=== PATIENT | male | born 1950 ===

== ENCOUNTER 2017-02-09 20:32 | Inpatient (IN) | payer OTHER ==
[2017-02-09] MEDS ORDERED: Albuterol-Ipratrop 3 mg / 0.5 (3 ml) UD INH STA (21:23)
[2017-02-09 21:46] LABS: ABG ALLEN TEST YES; ARTERIAL BLOOD GAS HCO3 29.5 mmol/L (21-28); ARTERIAL BLOOD GAS PH 7.36 (7.35-7.45); ARTERIAL BLOOD GAS PO2 68 mm/Hg (80-100)
[2017-02-09] MEDS ORDERED: Albuterol-Ipratrop 3 mg / 0.5 (3 ml) UD ONE (21:49)
[2017-02-09] MEDS ORDERED: cefTRIAXone IV 1 gm in Dextros 50 ML IVPB STA (22:15)
--- NOTE | 2017-02-09 22:15 | ED PDOC ---
HPI: SOB/CHF/COPD Time Seen by Provider: 02/09/17 21:01 Chief Complaint (Nursing): Shortness Of Breath Chief Complaint (Provider): Cough and Shortness Of Breath History Per: Patient History/Exam Limitations: no limitations Onset/Duration Of Symptoms: Days (x 2 ) Current Symptoms Are (Timing): Still Present Additional Complaint(s): 76 year old man with a past medical history of asthma presents to the ED with cough and associated shortness of breath, onset 2 days ago. Patients reports cough with green sputum, clear rhinorrhea and a subjective fever. He reports that he does not take any medications for asthma and does not follow up with doctor. Patient is homeless and lives outdoors. Admits to smoking cigarettes heavily. Denies hemoptysis. PMD: none Past Medical History Reviewed: Historical Data, Nursing Documentation, Vital Signs Vital Signs: Last Vital Signs Temp 98.4 F 02/09/17 23:29 Pulse 85 02/09/17 23:29 Resp 21 02/09/17 23:29 BP 148/79 02/09/17 23:29 Pulse Ox 95 02/09/17 23:29 - Medical History PMH: Asthma, COPD - Surgical History Surgical History: No Surg Hx - Family History Family History: States: Unknown Family Hx - Social History Current smoker - smoking cessation education provided: Yes (heavy) Alcohol: None Drugs: Denies - Immunization History Hx Tetanus Toxoid Vaccination: No Hx Influenza Vaccination: No Hx Pneumococcal Vaccination: No - Home Medications Home Medications: Ambulatory Orders Medication Instructions Recorded No Known Home Med 02/09/17 - Allergies Allergies/Adverse Reactions: Allergies Allergy/AdvReac Type Severity Reaction Status Date / Time No Known Allergies Allergy Unverified 02/09/17 20:40 Curb-65 Severity Score - CURB-65 Severity Score Confusion: No Bun >19mg/dl (>7mmol/L): No Respiratory Rate greater than/equal to 30: No Systolic BP <90 or Diastolic BP less than/equal 60mmHg: No Age >64: Yes Curb-65 Score: 1 Percentage 30-day mortality: 2.7% Review of Systems ROS Statement: Except As Marked, All Systems Reviewed And Found Negative (as per HPI) Constitutional: Positive for: Fever (subjective) ENT: Positive for: Nose Discharge (clear) Respiratory: Positive for: Cough, Shortness of Breath, Sputum (green) Physical Exam - Reviewed Nursing Documentation Reviewed: Yes Vital Signs Reviewed: Yes - Physical Exam Appears: Positive for: Non-toxic, In Acute Distress (mild respiratory) Head Exam: Positive for: ATRAUMATIC, NORMOCEPHALIC Skin: Positive for: Warm, Dry, Pallor Eye Exam: Positive for: EOMI, PERRL ENT: Negative for: Pharyngeal Erythema, Tonsillar Exudate Neck: Positive for: Painless ROM, Supple Cardiovascular/Chest: Positive for: Regular Rate, Rhythm, Chest Non Tender. Negative for: Murmur Respiratory: Positive for: Rhonchi, Wheezing, Respiratory Distress (mild). Negative for: Accessory Muscle Use Gastrointestinal/Abdominal: Positive for: Soft. Negative for: Tenderness Back: Positive for: Normal Inspection. Negative for: Muscle Spasm Extremity: Positive for: Normal ROM. Negative for: Deformity Lymphatic: Negative for: Adenopathy Neurologic/Psych: Positive for: Alert. Negative for: Motor/Sensory Deficits - Laboratory Results Result Diagrams: 02/09/17 22:18 02/09/17 22:18 - ECG O2 Sat by Pulse Oximetry: 89 (RA) Pulse Ox Interpretation: Normal Medical Decision Making Medical Decision Making: Time: 21:22 Impression: Differential diagnoses: pneumonia, bronchitis, ACS, CHF Initial Plan: --ABG shock panel --EKG --BNP --CMP --Troponin I --CBC with differentials --Chest Portable x-ray --Duoneb 9 ml INH --Rocephin 50 ml IVPB --mehtlyprednisolone 125 mg IVP --Zithromax 500 mg IV --Blood culture --Influenza A B Time: 22:22 --X-ray demonstarted right upper lobe pneumonia and Iv antibiotics were ordered to treat community acquired pneumonia. --Patient will be hospitalized for pneumonia w comorbidities and hypoxia and hypercarbia. Scribe Attestation: Documented by Veda Weller, acting as a scribe for Gaye Bridges MD Provider Scribe Attestation: All medical record entries made by the Scribe were at my direction and personally dictated by me. I have reviewed the chart and agree that the record accurately reflects my personal performance of the history, physical exam, medical decision making, and the department course for this patient. I have also personally directed, reviewed, and agree with the discharge instructions and disposition Disposition - Clinical Impression Clinical Impression: COPD exacerbation, Pneumonia Discussed With : Jackie Hernandez Doctor Will See Patient In The: ED Counseled Patient/Family Regarding: Studies Performed, Diagnosis - Disposition Disposition Time: 22:00 Condition: FAIR Forms: [employer] (Kyrgyz) - Pt Status Changed To: Hospital Disposition Of: Inpatient - Admit Certification Admit to Inpatient:: After my assessment, the patient will require hospitalization for at least two midnights. This is because of the severity of symptoms shown, intensity of services needed, and/or the medical risk in this patient being treated as an outpatient. - POA Present On Arrival: None
[2017-02-09 22:26] LABS: BASO # 0.1 K/uL (0.0-0.2); BASO % 0.9 % (0.0-2.0); EOS # 0.6 K/uL (0.0-0.7); EOS % 4.6 % (0.0-4.0); HEMATOCRIT 43.7 % (35.0-51.0); LYMPH # 1.3 K/uL (1.0-4.3); LYMPH % 9.6 % (20.0-40.0); MEAN CELL VOLUME 93.7 fl (80.0-94.0); MEAN CORPUSCULAR HEMOGLOBIN 30.5 pg (27.0-31.0); MEAN CORPUSCULAR HGB CONC 32.6 g/dL (33.0-37.0); MEAN PLATELET VOLUME 8.4 fl (7.2-11.7); MONO # 1.4 K/uL (0.0-0.8); MONO % 10.3 % (0.0-10.0); NEUT # 10.4 K/uL (1.8-7.0); NEUT % 74.6 % (50.0-75.0); PLATELET COUNT 317 K/uL (130-400); RED CELL DISTRIBUTION WIDTH 14.2 % (11.5-14.5); WHITE BLOOD COUNT 13.9 K/uL (4.8-10.8)
[2017-02-09 22:30] LABS: ALB/GLOB RATIO 1.2 (1.0-2.1); ALKALINE PHOSPHATASE 87 U/L (38-126); ALT/SGPT 27 U/L (21-72); AST/SGOT 15 U/L (17-59); BILIRUBIN,TOTAL 0.3 mg/dl (0.2-1.3); BLOOD UREA NITROGEN 14 mg/dl (9-20); CALCIUM 8.8 mg/dL (8.4-10.2); CARBON DIOXIDE 30 mmol/L (22-30); CHLORIDE 103 mmol/L (98-107); GFR AFRICAN-AMERICAN > 60; GLUCOSE,RANDOM 99 mg/dL (75-110); POTASSIUM 4.3 MMOL/L (3.6-5.0); SODIUM 143 mmol/l (132-148); TOTAL PROTEIN 7.6 G/DL (6.3-8.2)
[2017-02-09] MEDS ORDERED: cefTRIAXone IV 1 gm in Dextros 50 ML IVPB ONE (22:43)
[2017-02-09] MEDS ORDERED: Albuterol-Ipratrop 3 mg / 0.5 (3 ml) UD INH PRN (22:52)
[2017-02-09] MEDS ORDERED: Sodium Chloride 0.9% 1,000 ML IV SCH (23:00)
[2017-02-09 23:01] LABS: EOSINOPHIL 4 % (0-7); NEUTROPHIL 78 % (42-75); TOTAL CELLS COUNTED 100
--- NOTE | 2017-02-09 23:14 | CP.PCM.HP ---
History of Present Illness - History of Present Illness History of Present Illness: CC: cough, SOB HPI: This is a 76 y/o undomiciled male with MHx of asthma and COPD (current 1 PPD+ smoker) who comes in with 2 days of productive cough and SOB. Sputum is green, but no blood. Patient states possible tactile fevers. No n/v/d. Patient does not take any medications for asthma/COPD. He lives outside. ROS: 14 pt. ROS negative other than HPI MHx: Asthma, COPD SHx: None Allergies: NKDA Medications: None Family Hx: Patient cannot provide Social Hx: Patient is homeless, lives outdoors; smokes 1 PPD+, denies tobacco Surrogate: None that patient identifies now Present on Admission - Present on Admission Any Indicators Present on Admission: No Past Patient History - Past Social History Alcohol: None Drugs: Denies - PULMONARY Hx Asthma: Yes Hx Chronic Obstructive Pulmonary Disease (COPD): Yes - PSYCHIATRIC Hx Substance Use: No Meds Allergies/Adverse Reactions: Allergies Allergy/AdvReac Type Severity Reaction Status Date / Time No Known Allergies Allergy Unverified 02/09/17 20:40 Physical Exam - Constitutional Appears: No Acute Distress - Head Exam Head Exam: ATRAUMATIC, NORMOCEPHALIC - Eye Exam Eye Exam: EOMI, PERRL - ENT Exam ENT Exam: Mucous Membranes Dry - Neck Exam Neck exam: Positive for: Full Rom - Respiratory Exam Respiratory Exam: Rhonchi, Wheezes - Cardiovascular Exam Cardiovascular Exam: REGULAR RHYTHM, +S1, +S2 - GI/Abdominal Exam GI & Abdominal Exam: Normal Bowel Sounds, Soft - Extremities Exam Extremities exam: Positive for: full ROM, normal inspection - Neurological Exam Neurological exam: Alert, CN II-XII Intact, Oriented x3 - Psychiatric Exam Psychiatric exam: Normal Affect, Normal Mood - Skin Skin Exam: Dry, Warm Results - Vital Signs Recent Vital Signs: Last Vital Signs Temp 97.7 F 02/09/17 20:38 Pulse 61 02/09/17 20:38 Resp 25 H 02/09/17 22:08 BP 147/91 H 02/09/17 20:38 Pulse Ox 89 L 02/09/17 22:52 - Labs Result Diagrams: 02/09/17 22:18 02/09/17 22:18 Labs: Laboratory Results - last 24 hr 02/09/17 02/09/17 02/09/17 21:00 22:18 22:18 WBC 13.9 H RBC 4.66 Hgb 14.2 Hct 43.7 MCV 93.7 MCH 30.5 MCHC 32.6 L RDW 14.2 Plt Count 317 MPV 8.4 Neut % (Auto) 74.6 Lymph % (Auto) 9.6 L Bell % (Auto) 10.3 H Eos % (Auto) 4.6 H Baso % (Auto) 0.9 Neut # 10.4 H Lymph # 1.3 Bell # 1.4 H Eos # 0.6 Baso # 0.1 Neutrophils % (Manual) 78 H Lymphocytes % (Manual) 10 L Monocytes % (Manual) 8 Eosinophils % (Manual) 4 Platelet Estimate Normal RBC Morphology Normal pCO2 59 H pO2 68 L HCO3 29.5 H ABG pH 7.36 ABG Total CO2 35.1 H ABG O2 Saturation 98.2 H ABG Base Excess 6.0 H Carlos Alberto Test Yes ABG Potassium 3.8 A-a O2 Difference 58.0 Sodium 136.0 143 Chloride 102.0 103 Glucose 101 Lactate 0.5 L FiO2 28.0 Blood Gas Comments 2l/m nc,lr Crit Value Read Back N Potassium 4.3 Carbon Dioxide 30 Anion Gap 14 BUN 14 Creatinine 0.6 L Est GFR ( Amer) > 60 Est GFR (Non-Af Amer) > 60 Random Glucose 99 Calcium 8.8 Total Bilirubin 0.3 AST 15 L ALT 27 Alkaline Phosphatase 87 Troponin I < 0.0120 NT-Pro-B Natriuret Pep 352 Total Protein 7.6 Albumin 4.1 Globulin 3.5 Albumin/Globulin Ratio 1.2 Arterial Blood Potassium 3.8 Influenza Typ A,B (EIA) 02/09/17 22:18 WBC RBC Hgb Hct MCV MCH MCHC RDW Plt Count MPV Neut % (Auto) Lymph % (Auto) Bell % (Auto) Eos % (Auto) Baso % (Auto) Neut # Lymph # Bell # Eos # Baso # Neutrophils % (Manual) Lymphocytes % (Manual) Monocytes % (Manual) Eosinophils % (Manual) Platelet Estimate RBC Morphology pCO2 pO2 HCO3 ABG pH ABG Total CO2 ABG O2 Saturation ABG Base Excess Carlos Alberto Test ABG Potassium A-a O2 Difference Sodium Chloride Glucose Lactate FiO2 Blood Gas Comments Crit Value Read Back Potassium Carbon Dioxide Anion Gap BUN Creatinine Est GFR ( Amer) Est GFR (Non-Af Amer) Random Glucose Calcium Total Bilirubin AST ALT Alkaline Phosphatase Troponin I NT-Pro-B Natriuret Pep Total Protein Albumin Globulin Albumin/Globulin Ratio Arterial Blood Potassium Influenza Typ A,B (EIA) Negative for flu a/b - Imaging and Cardiology Chest x-ray Status: Image reviewed by me (possible R sided infiltrate) Assessment & Plan (1) CAP (community acquired pneumonia) Assessment and Plan: A/P: 76 y/o male, homeless, with asthma/COPD presenting with CAP. -Continue azithromycin/ceftriaxone IV -Cont nebulizers -Will switch to PO steroids for now since wheezing/SOB improved; protonix for GI PPx -f/u cultures -nicotine patch -SQ Lovenox for DVT PPx Status: Acute (2) DVT prophylaxis Status: Acute (3) COPD exacerbation Status: Acute
[2017-02-10 07:15] LABS: HEMATOCRIT 42.8 % (35.0-51.0); MEAN CELL VOLUME 92.7 fl (80.0-94.0); MEAN CORPUSCULAR HEMOGLOBIN 30.6 pg (27.0-31.0); RED CELL DISTRIBUTION WIDTH 14.2 % (11.5-14.5); WHITE BLOOD COUNT 11.9 K/uL (4.8-10.8)
[2017-02-10 07:58] LABS: BLOOD UREA NITROGEN 11 mg/dl (9-20); CALCIUM 8.6 mg/dL (8.4-10.2); CARBON DIOXIDE 30 mmol/L (22-30); CHLORIDE 100 mmol/L (98-107); GFR AFRICAN-AMERICAN > 60; GLUCOSE,RANDOM 158 mg/dL (75-110); SODIUM 141 mmol/l (132-148)
--- NOTE | 2017-02-10 08:09 | RAD ---
HISTORY: sob COMPARISON: Portable chest 12/22/2011. FINDINGS: LUNGS: Limited patchy E infiltrate difficult to exclude the right perihilar region, minimal in volume. Further, reticular markings are increased diffusely likely reflecting interval worsening of COPD. Overall pattern COPD was best identified in prior chest CT 04/10/2013. PLEURA: No significant pleural effusion identified, no pneumothorax apparent. CARDIOVASCULAR: Normal. OSSEOUS STRUCTURES: No significant abnormalities. VISUALIZED UPPER ABDOMEN: Normal. OTHER FINDINGS: None. IMPRESSION: Trace right perihilar infiltrate is difficult to exclude. Overall worsening of COPD is suspected. Further clinical correlation advised.
[2017-02-10] MEDS: Albuterol-Ipratrop 3 mg / 0.5 (3 ml) UD INH SCH ×3 (08:10→19:35)
[2017-02-10] MEDS: cefTRIAXone IV 1 gm in Dextros 50 ML IVPB SCH (08:18)
[2017-02-10] MEDS ORDERED: Pneumococcal 23-Valent Vaccine IM ONE (09:00)
[2017-02-10] MEDS ORDERED: Pantoprazole 40 mg EC Tab PO SCH (09:00)
[2017-02-10] MEDS ORDERED: Influenza Vaccine 18yr & older 0.5 ML/45 MCG SYR IM ONE (09:00)
[2017-02-10] MEDS: Pantoprazole 40 mg EC Tab PO SCH (10:00)
[2017-02-10] MEDS: Enoxaparin 40 mg Syringe SC SCH (10:00)
--- NOTE | 2017-02-10 10:50 | CARD ---
APPROVED REPORT EKG Measurement Heart [id number] <Conclusion> Normal sinus rhythm with sinus arrhythmia Normal ECG
--- NOTE | 2017-02-10 11:41 | CP.PCM.PN ---
Subjective - Date & Time of Evaluation Date of Evaluation: 02/10/17 Time of Evaluation: 11:30 - Subjective Subjective: No fever still with cough and wheezing sl SOB no CP no abd pain Objective - Vital Signs/Intake and Output Vital Signs (last 24 hours): Temp Pulse Resp BP Pulse Ox 98.1 F 63 18 133/67 93 L 02/10/17 08:29 02/10/17 08:31 02/10/17 08:29 02/10/17 08:29 02/10/17 08:29 - Medications Medications: Current Medications Acetaminophen (Tylenol 325mg Tab) 650 mg PO Q6 PRN PRN Reason: Fever >100.4 F Albuterol/Ipratropium (Duoneb 3 Mg/0.5 Mg (3 Ml) Ud) 3 ml INH RQ6 [facility] Last Admin: 02/10/17 08:10 Dose: 3 ml Enoxaparin Sodium (Lovenox) 40 mg SC DAILY [facility] PRN Reason: Protocol Last Admin: 02/10/17 10:00 Dose: 40 mg Ceftriaxone Sodium (Rocephin Iv 1 Gm Duplex) 50 mls @ 50 mls/hr IVPB DAILY [facility] PRN Reason: Protocol Last Admin: 02/10/17 08:18 Dose: 50 mls/hr Azithromycin 500 mg/ Dextrose 250 mls @ 250 mls/hr IVPB DAILY [facility] PRN Reason: Protocol Last Admin: 02/10/17 08:17 Dose: 250 mls/hr Nicotine (Nicoderm Cq) 1 patch TD DAILY [facility] Last Admin: 02/10/17 10:02 Dose: 1 patch Pantoprazole Sodium (Protonix Ec Tab) 40 mg PO DAILY [facility] Last Admin: 02/10/17 10:00 Dose: 40 mg Prednisone (Prednisone Tab) 60 mg PO DAILY [facility] Last Admin: 02/10/17 09:59 Dose: 60 mg - Labs Labs: 02/10/17 06:40 02/10/17 05:45 - Constitutional Appears: No Acute Distress - Head Exam Head Exam: NORMAL INSPECTION, NORMOCEPHALIC - Eye Exam Eye Exam: EOMI, Normal appearance Pupil Exam: NORMAL ACCOMODATION - ENT Exam ENT Exam: Mucous Membranes Moist, Normal External Ear Exam - Neck Exam Neck Exam: Full ROM. absent: Meningismus - Respiratory Exam Respiratory Exam: Rales, Rhonchi, Wheezes. absent: Respiratory Distress - Cardiovascular Exam Cardiovascular Exam: REGULAR RHYTHM, +S1, +S2 - GI/Abdominal Exam GI & Abdominal Exam: Soft, Normal Bowel Sounds. absent: Tenderness - Extremities Exam Extremities Exam: Full ROM, Normal Capillary Refill. absent: Calf Tenderness, Pedal Edema Additional comments: varicosities LE - Back Exam Back Exam: Full ROM. absent: CVA tenderness (L), CVA tenderness (R) - Neurological Exam Neurological Exam: Alert, Awake, CN II-XII Intact, Oriented x3 Neuro motor strength exam: Left Upper Extremity: 5, Right Upper Extremity: 5, Left Lower Extremity: 5, Right Lower Extremity: 5 - Psychiatric Exam Psychiatric exam: Normal Affect, Normal Mood - Skin Skin Exam: Dry, Normal Color, Warm Assessment and Plan - Assessment and Plan (Free Text) Assessment: 76 y/o homeless gent, with hx of COPD came in bec of cough , fever and SOB x 2 days . (1) CAP (community acquired pneumonia) - CXR : trace perihilar infiltrate -Continue azithromycin/ceftriaxone IV -Sputum , Blood c/s - Legionella, Mycoplasma (2) DVT prophylaxis Status: Acute Lovenox (3) COPD exacerbation -received Solumedrol IV in ED, cont PO steroids for now since wheezing/SOB improved - cont Duoneb - protonix for GI PPx -nicotine patch
[2017-02-10] MEDS ORDERED: Sodium Chloride 3% for Inhalation 4 ML VIAL.NEB IH PRN (13:54)
[2017-02-11] MEDS: Albuterol-Ipratrop 3 mg / 0.5 (3 ml) UD INH SCH ×4 (01:00→19:25)
[2017-02-11] MEDS: cefTRIAXone IV 1 gm in Dextros 50 ML IVPB SCH (10:08)
[2017-02-11] MEDS: Pantoprazole 40 mg EC Tab PO SCH (10:42)
[2017-02-11] MEDS: Enoxaparin 40 mg Syringe SC SCH (10:44)
--- NOTE | 2017-02-11 16:05 | CP.PCM.PN ---
Subjective - Date & Time of Evaluation Date of Evaluation: 02/11/17 Time of Evaluation: 13:00 - Subjective Subjective: No fever SOB better wheezing better still with cough , greenish phlegm no CP no abd pain Objective - Vital Signs/Intake and Output Vital Signs (last 24 hours): Temp Pulse Resp BP Pulse Ox 97.4 F L 57 L 20 156/86 H 97 02/11/17 08:39 02/11/17 08:39 02/11/17 08:39 02/11/17 08:39 02/11/17 08:39 Intake and Output: 02/11/17 02/11/17 06:59 18:59 Intake Total 420 Output Total 300 Balance 120 - Medications Medications: Current Medications Acetaminophen (Tylenol 325mg Tab) 650 mg PO Q6 PRN PRN Reason: Fever >100.4 F Acetaminophen (Tylenol 325mg Tab) 650 mg PO Q6 PRN PRN Reason: Headache Last Admin: 02/11/17 00:54 Dose: 650 mg Albuterol/Ipratropium (Duoneb 3 Mg/0.5 Mg (3 Ml) Ud) 3 ml INH RQ6 [facility] Last Admin: 02/11/17 07:49 Dose: 3 ml Enoxaparin Sodium (Lovenox) 40 mg SC DAILY [facility] PRN Reason: Protocol Last Admin: 02/11/17 10:44 Dose: 40 mg Ceftriaxone Sodium (Rocephin Iv 1 Gm Duplex) 50 mls @ 50 mls/hr IVPB DAILY [facility] PRN Reason: Protocol Last Admin: 02/11/17 10:08 Dose: 50 mls/hr Azithromycin 500 mg/ Dextrose 250 mls @ 250 mls/hr IVPB DAILY [facility] PRN Reason: Protocol Last Admin: 02/11/17 10:09 Dose: 250 mls/hr Nicotine (Nicoderm Cq) 1 patch TD DAILY [facility] Last Admin: 02/11/17 10:45 Dose: 1 patch Pantoprazole Sodium (Protonix Ec Tab) 40 mg PO DAILY [facility] Last Admin: 02/11/17 10:42 Dose: 40 mg Prednisone (Prednisone Tab) 60 mg PO DAILY [facility] Last Admin: 02/11/17 10:42 Dose: 60 mg - Labs Labs: 02/10/17 06:40 02/10/17 05:45 Assessment and Plan - Assessment and Plan (Free Text) Assessment: 76 y/o homeless gent, with hx of COPD came in bec of cough , fever and SOB x 2 days . CXR : right perhilar infiltrate (1) CAP (community acquired pneumonia) - CXR : trace perihilar infiltrate -Continue azithromycin/ceftriaxone IV -Sputum , Blood c/s - Legionella : negative , Infuenz : neg (2) DVT prophylaxis Status: Acute Lovenox (3) COPD exacerbation -received Solumedrol IV in ED, cont PO steroids for now since wheezing/SOB improved - cont Duoneb - protonix for GI PPx -nicotine patch
[2017-02-11] MEDS ORDERED: Albuterol HFA 90 mcg/actuation (8 g) INH PRN (19:33)
[2017-02-11] MEDS: Fluticasone-Salmeterol 250-50mcg Diskus IH SCH (21:08)
[2017-02-12] MEDS: Albuterol-Ipratrop 3 mg / 0.5 (3 ml) UD INH SCH ×3 (01:14→13:11)
[2017-02-12 08:37] VITALS: BP 159/85; PULSE 58; RESP 20; TEMP 98.1; O2SAT 98
[2017-02-12] MEDS: Pantoprazole 40 mg EC Tab PO SCH (09:02)
[2017-02-12] MEDS: Enoxaparin 40 mg Syringe SC SCH (09:03)
[2017-02-12] MEDS: Fluticasone-Salmeterol 250-50mcg Diskus IH SCH (09:04)
[2017-02-12] MEDS: cefTRIAXone IV 1 gm in Dextros 50 ML IVPB SCH (09:04)
--- NOTE | 2017-02-12 13:18 | CP.PCM.DIS ---
Provider - Provider Date of Admission: 02/09/17 22:50 Attending physician: Jackie Hernandez MD Primary care physician: None Consults: None on this admission Time Spent in preparation of Discharge (in minutes): 25 Hospital Course - Lab Results Lab Results: Micro Results 02/09/17 22:06 Blood Blood Culture - Preliminary NO GROWTH AFTER 48 HOURS 02/11/17 14:00 Sputum Induced Gram Stain - Final Most Recent Lab Values WBC 11.9 K/uL (4.8-10.8) H 02/10/17 06:40 RBC 4.61 Mil/uL (4.40-5.90) 02/10/17 06:40 Hgb 14.1 g/dL (12.0-18.0) 02/10/17 06:40 Hct 42.8 % (35.0-51.0) 02/10/17 06:40 MCV 92.7 fl (80.0-94.0) 02/10/17 06:40 MCH 30.6 pg (27.0-31.0) 02/10/17 06:40 MCHC 33.0 g/dL (33.0-37.0) 02/10/17 06:40 RDW 14.2 % (11.5-14.5) 02/10/17 06:40 Plt Count 312 K/uL (130-400) 02/10/17 06:40 MPV 8.4 fl (7.2-11.7) 02/09/17 22:18 Neut % (Auto) 74.6 % (50.0-75.0) 02/09/17 22:18 Lymph % (Auto) 9.6 % (20.0-40.0) L 02/09/17 22:18 Elmore % (Auto) 10.3 % (0.0-10.0) H 02/09/17 22:18 Eos % (Auto) 4.6 % (0.0-4.0) H 02/09/17 22:18 Baso % (Auto) 0.9 % (0.0-2.0) 02/09/17 22:18 Neut # 10.4 K/uL (1.8-7.0) H 02/09/17 22:18 Lymph # 1.3 K/uL (1.0-4.3) 02/09/17 22:18 Elmore # 1.4 K/uL (0.0-0.8) H 02/09/17 22:18 Eos # 0.6 K/uL (0.0-0.7) 02/09/17 22:18 Baso # 0.1 K/uL (0.0-0.2) 02/09/17 22:18 Neutrophils % (Manual) 78 % (42-75) H 02/09/17 22:18 Lymphocytes % (Manual) 10 % (20-50) L 02/09/17 22:18 Monocytes % (Manual) 8 % (0-10) 02/09/17 22:18 Eosinophils % (Manual) 4 % (0-7) 02/09/17 22:18 Platelet Estimate Normal (NORMAL) 02/09/17 22:18 RBC Morphology Normal (NORMAL) 02/09/17 22:18 pCO2 59 mm/Hg (35-45) H 02/09/17 21:00 pO2 68 mm/Hg (80-100) L 02/09/17 21:00 HCO3 29.5 mmol/L (21-28) H 02/09/17 21:00 ABG pH 7.36 (7.35-7.45) 02/09/17 21:00 ABG Total CO2 35.1 mmol/L (22-28) H 02/09/17 21:00 ABG O2 Saturation 98.2 % (95-98) H 02/09/17 21:00 ABG Base Excess 6.0 mmol/L (-2.0-3.0) H 02/09/17 21:00 Carlos Alberto Test Yes 02/09/17 21:00 ABG Potassium 3.8 mmol/L (3.6-5.2) 02/09/17 21:00 A-a O2 Difference 58.0 mm/Hg 02/09/17 21:00 Sodium 136.0 mmol/L (132-148) 02/09/17 21:00 Chloride 102.0 mmol/L (98-107) 02/09/17 21:00 Glucose 101 mg/dL (75-110) 02/09/17 21:00 Lactate 0.5 mmol/L (0.7-2.1) L 02/09/17 21:00 FiO2 28.0 % 02/09/17 21:00 Blood Gas Comments 2l/m nc,lr 02/09/17 21:00 Crit Value Read Back N 02/09/17 21:00 Sodium 141 mmol/l (132-148) 02/10/17 05:45 Potassium 4.0 MMOL/L (3.6-5.0) 02/10/17 05:45 Chloride 100 mmol/L (98-107) 02/10/17 05:45 Carbon Dioxide 30 mmol/L (22-30) 02/10/17 05:45 Anion Gap 15 (10-20) 02/10/17 05:45 BUN 11 mg/dl (9-20) 02/10/17 05:45 Creatinine 0.5 mg/dl (0.8-1.5) L 02/10/17 05:45 Est GFR ( Amer) > 60 02/10/17 05:45 Est GFR (Non-Af Amer) > 60 02/10/17 05:45 Random Glucose 158 mg/dL (75-110) H 02/10/17 05:45 Calcium 8.6 mg/dL (8.4-10.2) 02/10/17 05:45 Total Bilirubin 0.3 mg/dl (0.2-1.3) 02/09/17 22:18 AST 15 U/L (17-59) L 02/09/17 22:18 ALT 27 U/L (21-72) 02/09/17 22:18 Alkaline Phosphatase 87 U/L (38-126) 02/09/17 22:18 Troponin I < 0.0120 ng/mL (0.00-0.120) 02/09/17 22:18 NT-Pro-B Natriuret Pep 352 pg/ml (0-900) 02/09/17 22:18 Total Protein 7.6 G/DL (6.3-8.2) 02/09/17 22:18 Albumin 4.1 g/dL (3.5-5.0) 02/09/17 22:18 Globulin 3.5 gm/dL (2.2-3.9) 02/09/17 22:18 Albumin/Globulin Ratio 1.2 (1.0-2.1) 02/09/17 22:18 Arterial Blood Potassium 3.8 mmol/L (3.6-5.2) 02/09/17 21:00 Influenza Typ A,B (EIA) Negative for flu a/b (NEGATIVE) 02/09/17 22:18 Ur L.pneumophila Ag Negative (NEGATIVE) 02/10/17 19:49 - Hospital Course Hospital Course: This is a 66 year old homeless male with a past medical history significant for asthma and COPD, 1 PPD smoker, who presented to the ED with 2 days of productive cough and shortness of breath. He was found to have right sided pneumonia. He also was found to have significant wheezing. The patient was admitted and started on azithromycin and ceftriaxone for coverage of community acquired pneumonia. He was also given steroids, Advair, and duonebs/albuterol with improvement in his wheezing and asthma. Today, he feels much better. He was given albuterol and Advair nebulizers. He was provided 5 days of Levaquin by the hospital as well. He was discharged in stable condition. Discharge Exam - Head Exam Head Exam: NORMAL INSPECTION, NORMOCEPHALIC - Additional Findings Additional findings: Physical exam: Constitutional- cooperative, awake, alert. Head- NCAT, PERRL Eye- PERRL, normal accommodation ENT- normal exam, MMM. Neck- normal inspection, supple, no JVD Respiratory- CTAB, bilateral wheezing, improved since admission, no rales or rhonchi Cardiovascular- RRR, +S1, +S2 no MRG GI/Abdominal- normal bowel sounds, soft, no mass, no hsm Skin- warm, dry Extremities Exam- normal capillary refill, normal inspection Neurological Exam- alert, stable gait Psych- normal mood, normal affect Discharge Plan - Discharge Medications Prescriptions: levoFLOXacin [Levaquin] 500 mg PO DAILY 5 Days #5 tab - Follow Up Plan Condition: FAIR Disposition: HOME/ ROUTINE Instructions: Community Acquired Pneumonia (DC) Additional Instructions: appointment february 18 at 11am at [facility] Referrals: [facility] [place] [Outside]
== END 2017-02-12 13:57 | disposition home or self-care (01) | DRG 541 ==
LOC: H.ER 20:32 → H.ERHOLD 22:50 → EDBD 22:50 → H.MEDSURG1 02-10 01:24
PROVIDERS: ADMIT Internal Medicine; ATTEND Internal Medicine
PROC: 3E0234Z Introduction of Serum, Toxoid and Vaccine into Muscle, Percutaneous Approach (ICD-10-PCS; principal; 2017-02-10)
DX: J44.0 Chronic obstructive pulmonary disease with (acute) lower respiratory infection (principal); J18.9 Pneumonia, unspecified organism; R09.02 Hypoxemia; J44.1 Chronic obstructive pulmonary disease with (acute) exacerbation; Z59.0 Homelessness; Z23 Encounter for immunization; J45.909 Unspecified asthma, uncomplicated; F17.210 Nicotine dependence, cigarettes, uncomplicated

== ENCOUNTER 2017-06-22 10:31 | Inpatient (IN) | payer SELFPAY ==
[2017-06-22] MEDS ORDERED: Albuterol-Ipratrop 3 mg / 0.5 (3 ml) UD INH STA ×2 (11:22→14:41)
--- NOTE | 2017-06-22 11:38 | ED PDOC ---
HPI: SOB/CHF/COPD Time Seen by Provider: 06/22/17 10:51 Chief Complaint (Nursing): Shortness Of Breath Chief Complaint (Provider): Shortness Of Breath History Per: Patient, EMS History/Exam Limitations: no limitations Onset/Duration Of Symptoms: Days (X since Thursday) Current Symptoms Are (Timing): Still Present Additional History Per: Prior Records Additional Complaint(s): 66-year-old presents to ED via EMS with shortness of breath, cough and yellow sputum production since Thursday. Reports chest pain with cough and back pain with cough. No fever. Reports taking advir. (+) smoker. PMD: Provider TBD Past Medical History Reviewed: Historical Data, Nursing Documentation, Vital Signs Vital Signs: Last Vital Signs Temp 98.2 F 06/24/17 12:12 Pulse 71 06/24/17 12:12 Resp 17 06/24/17 12:12 BP 117/66 06/24/17 12:12 Pulse Ox 97 06/24/17 12:12 - Medical History PMH: Asthma, COPD Denies: HIV, Chronic Kidney Disease - Surgical History Surgical History: No Surg Hx - Family History Family History: States: Unknown Family Hx - Immunization History Hx Tetanus Toxoid Vaccination: No Hx Influenza Vaccination: No Hx Pneumococcal Vaccination: No - Home Medications Home Medications: Ambulatory Orders Medication Instructions Recorded Albuterol Sulfate [Proair Hfa] 2 puff IH Q6 PRN 06/12/17 Fluticasone/Salmeterol [Advair 1 puff IH Q12 06/12/17 250-50 Diskus] Acetaminophen [Tylenol 325mg tab] 650 mg PO Q6 PRN tab 06/16/17 Aspirin 325 mg PO DAILY #30 tab 06/16/17 Atorvastatin [Lipitor] 40 mg PO DAILY #30 tab 06/16/17 Ibuprofen [Motrin Tab] 400 mg PO Q6 PRN tab 06/16/17 Montelukast [Singulair] 10 mg PO HS #30 tab 06/16/17 Albuterol 0.5% [Albuterol 0.5% 3 ml IH Q6H PRN #30 neb 06/22/17 Inhal Love (2.5 mg/0.5 ml) UD] Prednisone 50 mg PO DAILY #4 tab 06/22/17 - Allergies Allergies/Adverse Reactions: Allergies Allergy/AdvReac Type Severity Reaction Status Date / Time No Known Allergies Allergy Unverified 02/09/17 20:40 Physical Exam - Reviewed Nursing Documentation Reviewed: Yes Vital Signs Reviewed: Yes - Physical Exam Appears: Positive for: Well (Speaking full sentences) Head Exam: Positive for: ATRAUMATIC, NORMAL INSPECTION, NORMOCEPHALIC Cardiovascular/Chest: Positive for: Regular Rate, Rhythm Respiratory: Positive for: Wheezing (Bilateral) Neurologic/Psych: Positive for: Alert, Oriented (x 3) - Laboratory Results Result Diagrams: 06/23/17 04:50 06/23/17 04:50 - ECG O2 Sat by Pulse Oximetry: 93 (RA) Pulse Ox Interpretation: Abnormal - Progress Re-evaluation Time: 16:00 Condition: Improving,but remains with symptoms Medical Decision Making Medical Decision Making: Prior records reviewed. Patient was discharged from hospital on 06/16 after being admitted for same complaint. Time: 11:22 Plan: - EKG - CMP - Troponin I - CBC - Partial Thromboplastin Time - Prothrombin Time - Portable Chest x-ray - Duoneb 3 mg/0.5 mg (3 ml) UD - SOLU-Medrol 125 mg IVP - Blood Culture - Peak Flow Pre/Post Treatment - UA WBC Reveals 13.4 K/uL [elevated] Troponin I Reveals < 0.0120 ng/mL [within range] Time: 12:10 Portable CXR FINDINGS: LUNGS: No active pulmonary disease. PLEURA: No significant pleural effusion identified, no pneumothorax apparent. CARDIOVASCULAR: Normal. OSSEOUS STRUCTURES: No significant abnormalities. VISUALIZED UPPER ABDOMEN: Normal. OTHER FINDINGS: None. IMPRESSION: No active disease. No significant interval change compared to the prior examination(s). O2 SAT RA 88% Time: 14:41 - Duoneb 3 mg/0.5 ml (3 ml) UD - Peak Flow Pre/Post Treatment Scribe Attestation: Documented by Ranjit Mead, acting as a scribe for Christina Jimenes MD Provider Scribe Attestation: All medical record entries made by the Scribe were at my direction and personally dictated by me. I have reviewed the chart and agree that the record accurately reflects my personal performance of the history, physical exam, medical decision making, and the department course for this patient. I have also personally directed, reviewed, and agree with the discharge instructions and disposition. Disposition - Clinical Impression Clinical Impression: COPD exacerbation - Patient ED Disposition Is Patient to be Admitted: Yes - Disposition Disposition Time: 16:04 Condition: STABLE - Pt Status Changed To: Hospital Disposition Of: Inpatient - Admit Certification Admit to Inpatient:: After my assessment, the patient will require hospitalization for at least two midnights. This is because of the severity of symptoms shown, intensity of services needed, and/or the medical risk in this patient being treated as an outpatient. - POA Present On Arrival: None
--- NOTE | 2017-06-22 11:39 | CARD ---
APPROVED REPORT EKG Measurement Heart [id number] <Conclusion> Normal sinus rhythm Normal ECG
[2017-06-22] MEDS ORDERED: Albuterol-Ipratrop 3 mg / 0.5 (3 ml) UD ONE ×2 (12:04→15:09)
--- NOTE | 2017-06-22 12:12 | RAD ---
HISTORY: SOB COMPARISON: 06/12/2017 FINDINGS: LUNGS: No active pulmonary disease. PLEURA: No significant pleural effusion identified, no pneumothorax apparent. CARDIOVASCULAR: Normal. OSSEOUS STRUCTURES: No significant abnormalities. VISUALIZED UPPER ABDOMEN: Normal. OTHER FINDINGS: None. IMPRESSION: No active disease. No significant interval change compared to the prior examination(s).
[2017-06-22 12:13] LABS: BASO # 0.1 K/uL (0.0-0.2); BASO % 0.7 % (0.0-2.0); EOS # 1.4 K/uL (0.0-0.7); EOS % 10.4 % (0.0-4.0); HEMOGLOBIN 15.1 g/dL (12.0-18.0); LYMPH # 1.1 K/uL (1.0-4.3); LYMPH % 8.4 % (20.0-40.0); MEAN CELL VOLUME 92.4 fl (80.0-94.0); MEAN CORPUSCULAR HEMOGLOBIN 30.6 pg (27.0-31.0); MEAN CORPUSCULAR HGB CONC 33.1 g/dL (33.0-37.0); MONO % 7.5 % (0.0-10.0); NEUT # 9.8 K/uL (1.8-7.0); NRBC % 0.1 % (0.0-0.0); PLATELET COUNT 339 K/uL (130-400); RBC 4.93 Mil/uL (4.40-5.90); RED CELL DISTRIBUTION WIDTH 14.3 % (11.5-14.5); WHITE BLOOD COUNT 13.4 K/uL (4.8-10.8)
[2017-06-22 12:23] LABS: PARTIAL THROMBOPLASTIN TIME 37.1 Seconds (25.6-37.1); PROTHROMBIN TIME 11.2 Seconds (9.8-13.1)
[2017-06-22 12:26] LABS: ALB/GLOB RATIO 1.1 (1.0-2.1); ALBUMIN 3.6 g/dL (3.5-5.0); ALT/SGPT 41 U/L (21-72); AST/SGOT 21 U/L (17-59); BLOOD UREA NITROGEN 12 mg/dl (9-20); CALCIUM 8.6 mg/dL (8.4-10.2); GFR AFRICAN-AMERICAN > 60; GFR NON-AFRICAN AMERICAN > 60
[2017-06-22 13:18] LABS: EOSINOPHIL 7 % (0-7); LYMPHOCYTE 6 % (20-50); MONOCYTE 7 % (0-10); NEUTROPHIL 79 % (42-75); PLATELET ESTIMATE NORMAL (NORMAL); REACTIVE LYMPHOCYTES 1 % (0-0); TOTAL CELLS COUNTED 100
[2017-06-22] MEDS ORDERED: Albuterol HFA 90 mcg/actuation (8 g) IH PRN (17:05)
[2017-06-22 17:13] LABS: URINE BILIRUBIN NEGATIVE (NEGATIVE); URINE BLOOD NEGATIVE (NEGATIVE); URINE CLARITY CLEAR (Clear); URINE COLOR YELLOW (YELLOW); URINE GLUCOSE (UA) NEG (Normal); URINE LEUKOCYTE ESTERASE NEG Leu/uL (Negative); URINE PROTEIN NEGATIVE (NEGATIVE); URINE UROBILINOGEN 0.2-1.0 mg/dL (0.2-1.0)
[2017-06-22] MEDS ORDERED: Sodium Chloride 3% for Inhalation 4 ML VIAL.NEB IH PRN (17:20)
--- NOTE | 2017-06-22 17:22 | CP.PCM.HP ---
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 Also he states sob that started over the weekend. Patient reports subjective fever but never took the temperature. Also patient reports mild chest pain when he cough. Otherwise patient denies nausea, vomiting, palpitations, abdominal pain, no urinary symptoms, no headaches. Prior records reviewed. Patient was discharged from hospital on 06/16 after being admitted for same complaint. Evaluated by Pulm previous admission. PMD: none PMH: SC 2004, COPD. FMH: TB (father) denies family h/o CVD, cancer. Meds: motrin NKDA PSH: RI. SH: smoker 1ppd x 50 years, denies alcohol, recreational drugs. Homeless, living in assisted by periods. ED course: VS: T 98.4, BP 155/88, RR 22, HR 78, sat 93% NC 3L PE: CVS: RRR, no murmurs; Resp Wheezing (Bilateral) Labs: cbc leukocytosis, CMP wnl, troponin x1 wnl CXR: no active lung disease. EKG: NSR MEDS: duoneb x2, solumedrol 125 mg IV once. Present on Admission - Present on Admission Any Indicators Present on Admission: No Review of Systems - Review of Systems All systems: reviewed and no additional remarkable complaints except (HPI) Past Patient History - Past Medical History & Family History Past Medical History?: Yes - Past Social History Smoking Status: Current Some Days Smoker - CARDIAC Hx Cardiac Disorders: No - PULMONARY Hx Asthma: Yes Hx Chronic Obstructive Pulmonary Disease (COPD): Yes - NEUROLOGICAL Hx Neurological Disorder: No - HEENT Hx HEENT Problems: No - RENAL Hx Chronic Kidney Disease: No - ENDOCRINE/METABOLIC Hx Endocrine Disorders: No - HEMATOLOGICAL/ONCOLOGICAL Hx Human Immunodeficiency Virus (HIV): No - INTEGUMENTARY Hx Dermatological Problems: No - MUSCULOSKELETAL/RHEUMATOLOGICAL Hx Musculoskeletal Disorders: No Hx Falls: No - GASTROINTESTINAL Hx Gastrointestinal Disorders: No - GENITOURINARY/GYNECOLOGICAL Hx Genitourinary Disorders: No - PSYCHIATRIC Hx Psychophysiologic Disorder: No Hx Substance Use: Yes (Used Marijuana years ago) - SURGICAL HISTORY Hx Surgeries: Yes Hx Herniorrhaphy: Yes - ANESTHESIA Hx Anesthesia: Yes Hx Anesthesia Reactions: No Hx Malignant Hyperthermia: No Meds Home Medications: Home Medication List Medication Instructions Recorded Confirmed Type Albuterol 0.5% [Albuterol 0.5% 3 ml IH Q6H PRN #30 neb 06/22/17 Rx Inhal Love (2.5 mg/0.5 ml) UD] Prednisone 50 mg PO DAILY #4 tab 06/22/17 Rx Allergies/Adverse Reactions: Allergies Allergy/AdvReac Type Severity Reaction Status Date / Time No Known Allergies Allergy Unverified 02/09/17 20:40 Physical Exam - Constitutional Appears: No Acute Distress - Head Exam Head Exam: NORMAL INSPECTION - Eye Exam Eye Exam: EOMI, PERRL - ENT Exam ENT Exam: Mucous Membranes Moist - Respiratory Exam Respiratory Exam: Decreased Breath Sounds, Wheezes, NORMAL BREATHING PATTERN. absent: Accessory Muscle Use, Chest Wall Tenderness - Cardiovascular Exam Cardiovascular Exam: REGULAR RHYTHM, +S1, +S2. absent: Tachycardia - GI/Abdominal Exam GI & Abdominal Exam: Normal Bowel Sounds, Soft. absent: Distended, Tenderness - Extremities Exam Extremities exam: Negative for: calf tenderness, pedal edema - Neurological Exam Neurological exam: Alert, CN II-XII Intact, Oriented x3 - Psychiatric Exam Psychiatric exam: Normal Mood - Skin Skin Exam: Dry, Erythema, Warm Additional comments: Erythematous, fine, rash noted over trunk and upper extremities, some scratch appreciated. Results - Vital Signs Recent Vital Signs: Last Vital Signs Temp 98.4 F 06/22/17 10:39 Pulse 78 06/22/17 10:39 Resp 20 06/22/17 10:39 BP 155/88 H 06/22/17 10:39 Pulse Ox 93 L 06/22/17 16:45 - Labs Result Diagrams: 06/22/17 12:06 06/22/17 12:06 Labs: Laboratory Results - last 24 hr 06/22/17 06/22/17 06/22/17 12:06 12:06 12:06 WBC 13.4 H RBC 4.93 Hgb 15.1 Hct 45.6 MCV 92.4 MCH 30.6 MCHC 33.1 RDW 14.3 Plt Count 339 MPV 8.0 Neut % (Auto) 73.0 Lymph % (Auto) 8.4 L Stanley % (Auto) 7.5 Eos % (Auto) 10.4 H Baso % (Auto) 0.7 Neut # (Auto) 9.8 H Lymph # (Auto) 1.1 Stanley # (Auto) 1.0 H Eos # (Auto) 1.4 H Baso # (Auto) 0.1 Neutrophils % (Manual) 79 H Lymphocytes % (Manual) 6 L Reactive Lymphs % 1 H Monocytes % (Manual) 7 Eosinophils % (Manual) 7 Platelet Estimate Normal RBC Morphology Normal PT 11.2 INR 1.0 APTT 37.1 Sodium 139 Potassium 4.4 Chloride 98 Carbon Dioxide 30 Anion Gap 15 BUN 12 Creatinine 0.5 L Est GFR ( Amer) > 60 Est GFR (Non-Af Amer) > 60 Random Glucose 95 Calcium 8.6 Total Bilirubin 0.4 AST 21 ALT 41 Alkaline Phosphatase 87 Troponin I < 0.0120 Total Protein 6.7 Albumin 3.6 Globulin 3.1 Albumin/Globulin Ratio 1.1 Assessment & Plan - Assessment and Plan (Free Text) Assessment: 66 yo M patient with PMH on CAD, COPD, extensive smoking history admitted due to COPD exacerbation. Plan: 1- COPD exacerbation - admit to tele - regular diet - heavy smoking history - sob, cough, sputum production - duoneb Q4, PEF before and after tx - Solumedrol 40 mg IV BID - Levofloxacin 750mg PO daily - c/w O2 @ 3L to keep sat above 93% - repeat cxr in AM - f/u sputum cx - Evaluated by Pulm Dr Ervin on previous admission. 2- CAD - h/o SC on 2004 - compensated - no on meds - pt denies h/o HTN, DM, HPL - Considering Cardio input 3- DVT prophylaxis - Lovenox 40 mg SC daily
[2017-06-22] MEDS: levoFLOXacin 750 MG TAB PO SCH (18:40)
[2017-06-22 18:41] LABS: BASO # 0.1 K/uL (0.0-0.2); BASO % 0.8 % (0.0-2.0); EOS # 0.1 K/uL (0.0-0.7); EOS % 0.9 % (0.0-4.0); HEMOGLOBIN 14.7 g/dL (12.0-18.0); LYMPH # 0.5 K/uL (1.0-4.3); LYMPH % 4.9 % (20.0-40.0); MEAN CELL VOLUME 92.3 fl (80.0-94.0); MEAN CORPUSCULAR HEMOGLOBIN 30.3 pg (27.0-31.0); MEAN CORPUSCULAR HGB CONC 32.9 g/dL (33.0-37.0); MEAN PLATELET VOLUME 7.9 fl (7.2-11.7); MONO # 0.1 K/uL (0.0-0.8); MONO % 1.1 % (0.0-10.0); NEUT # 8.6 K/uL (1.8-7.0); NEUT % 92.3 % (50.0-75.0); PLATELET COUNT 321 K/uL (130-400); RBC 4.84 Mil/uL (4.40-5.90); RED CELL DISTRIBUTION WIDTH 14.2 % (11.5-14.5); WHITE BLOOD COUNT 9.3 K/uL (4.8-10.8)
[2017-06-22 18:44] LABS: BARBITURATES, UR NEGATIVE (NEGATIVE); BENZODIAZEPINES, UR NEGATIVE (NEGATIVE); OPIATES, UR NEGATIVE (NEGATIVE); PHENCYCLIDINE, UR NEGATIVE (NEGATIVE)
[2017-06-22 18:55] LABS: BLOOD UREA NITROGEN 10 mg/dl (9-20); CALCIUM 8.4 mg/dL (8.4-10.2); GFR AFRICAN-AMERICAN > 60; GFR NON-AFRICAN AMERICAN > 60
[2017-06-22 19:41] LABS: LYMPHOCYTE 4 % (20-50); NEUTROPHIL 96 % (42-75); PLATELET ESTIMATE NORMAL (NORMAL); TOTAL CELLS COUNTED 100
[2017-06-22 20:24] LABS: MONOCYTE 0 % (0-10)
[2017-06-22] MEDS ORDERED: methylPREDNISolone 40 MG in Sodium Chloride 0.9% 50 ML IV SCH (21:00)
[2017-06-22] MEDS ORDERED: Fluticasone-Salmeterol 250-50mcg Diskus IH SCH (21:00)
[2017-06-22] MEDS: MethylPREDNISolone 40 mg Vial IVP SCH (22:58)
[2017-06-22] MEDS: Albuterol-Ipratrop 3 mg / 0.5 (3 ml) UD INH SCH (23:18)
[2017-06-23] MEDS ORDERED: Permethrin 5% CREAM TOP ONE ×2 (04:09→16:51)
[2017-06-23] MEDS: Albuterol-Ipratrop 3 mg / 0.5 (3 ml) UD INH SCH ×6 (04:21→23:59)
[2017-06-23 05:28] LABS: BASO % 0.3 % (0.0-2.0); EOS % 0.3 % (0.0-4.0); LYMPH # 0.9 K/uL (1.0-4.3); LYMPH % 11.6 % (20.0-40.0); MEAN CELL VOLUME 92.6 fl (80.0-94.0); MEAN CORPUSCULAR HEMOGLOBIN 30.4 pg (27.0-31.0); MEAN CORPUSCULAR HGB CONC 32.8 g/dL (33.0-37.0); MEAN PLATELET VOLUME 7.8 fl (7.2-11.7); MONO # 0.2 K/uL (0.0-0.8); MONO % 3.3 % (0.0-10.0); NEUT # 6.4 K/uL (1.8-7.0); NEUT % 84.5 % (50.0-75.0); RBC 4.92 Mil/uL (4.40-5.90); WHITE BLOOD COUNT 7.5 K/uL (4.8-10.8)
[2017-06-23 05:44] LABS: ALB/GLOB RATIO 1.1 (1.0-2.1); ALBUMIN 3.4 g/dL (3.5-5.0); ALT/SGPT 35 U/L (21-72); AST/SGOT 14 U/L (17-59); BLOOD UREA NITROGEN 17 mg/dl (9-20); CALCIUM 8.7 mg/dL (8.4-10.2); GFR AFRICAN-AMERICAN > 60; GFR NON-AFRICAN AMERICAN > 60
[2017-06-23] MEDS: MethylPREDNISolone 40 mg Vial IVP SCH ×2 (08:31→22:41)
[2017-06-23] MEDS: Enoxaparin 40 mg Syringe SC SCH (08:31)
[2017-06-23] MEDS: levoFLOXacin 750 MG TAB PO SCH (08:31)
[2017-06-23] MEDS: Calamine/Zinc Oxide LOTION TOP SCH ×3 (08:32→19:45)
--- NOTE | 2017-06-23 08:52 | CP.PCM.PN ---
Subjective - Date & Time of Evaluation Date of Evaluation: 06/23/17 Time of Evaluation: 08:48 - Subjective Subjective: Patient seen and examined this morning, still complaining of productive cough and chest pain with cough (troponin x3 neg). Denies sob, palpitations, afebrile. States good appetite. No urinary symptoms, normal BM. Objective - Vital Signs/Intake and Output Vital Signs (last 24 hours): Temp Pulse Resp BP Pulse Ox 97.3 F L 64 18 114/66 93 L 06/23/17 08:38 06/23/17 08:38 06/23/17 08:38 06/23/17 08:38 06/23/17 08:38 - Medications Medications: Current Medications Albuterol (Ventolin Hfa 90 Mcg/Actuation (8 G)) 2 puff IH Q6 PRN PRN Reason: Shortness of Breath Albuterol/Ipratropium (Duoneb 3 Mg/0.5 Mg (3 Ml) Ud) 3 ml INH RQ4 [facility] Last Admin: 06/23/17 08:02 Dose: 3 ml Calamine (Calamine Lotion) 1 applic TOP TID [facility] Last Admin: 06/23/17 08:32 Dose: 1 applic Enoxaparin Sodium (Lovenox) 40 mg SC DAILY [facility] PRN Reason: Protocol Last Admin: 06/23/17 08:31 Dose: 40 mg Levofloxacin (Levaquin) 750 mg PO DAILY [facility] PRN Reason: Protocol Last Admin: 06/23/17 08:31 Dose: 750 mg Methylprednisolone (Solu-Medrol) 40 mg IVP Q12 [facility] Last Admin: 06/23/17 08:31 Dose: 40 mg Montelukast Sodium (Singulair) 10 mg PO HS [facility] Last Admin: 06/22/17 22:58 Dose: 10 mg - Labs Labs: 06/23/17 04:50 06/23/17 04:50 PT 11.2 Seconds (9.8-13.1) 06/22/17 12:06 INR 1.0 (0.9-1.2) 06/22/17 12:06 APTT 37.1 Seconds (25.6-37.1) 06/22/17 12:06 - Constitutional Appears: No Acute Distress - Head Exam Head Exam: NORMAL INSPECTION - Eye Exam Eye Exam: EOMI, PERRL - ENT Exam ENT Exam: Mucous Membranes Moist - Respiratory Exam Respiratory Exam: Decreased Breath Sounds, Wheezes. absent: Accessory Muscle Use, Chest Wall Tenderness, Respiratory Distress - Cardiovascular Exam Cardiovascular Exam: REGULAR RHYTHM, +S1, +S2. absent: Tachycardia - GI/Abdominal Exam GI & Abdominal Exam: Soft, Normal Bowel Sounds. absent: Distended, Tenderness - Extremities Exam Extremities Exam: absent: Calf Tenderness - Neurological Exam Neurological Exam: Alert, Awake, Oriented x3 - Skin Skin Exam: Dry, Warm Additional comments: Some echymosis noted over upper extremities likely secondary of capillary fragility. Fine erythematous rash with groove pattern appreciated on trunk and upper extremities, itching. Assessment and Plan - Assessment and Plan (Free Text) Assessment: 66 yo M patient with PMH on CAD, COPD, extensive smoking history admitted due to COPD exacerbation. Transfer to Med/surg. Plan: 1- COPD exacerbation - heavy smoking history - sob, cough, sputum production - duoneb Q4, PEF before and after tx - Solumedrol 40 mg IV BID - Levofloxacin 750mg PO daily (Day 2) - Start O2 @ 3L to keep sat above 93% - repeat cxr in AM, pending - f/u sputum cx - Evaluated by Pulm Dr Ervin on previous admission. -d/c on ventolin and singulair 2- CAD - heart healthy diet - h/o CO on 2004 - compensated - no on meds - pt denies h/o HTN, DM, HPL - Considering Cardio input 3- Scabies - isolation, contact precautions - s/p Permethrin 5% cream 1 applic 4- DVT prophylaxis - Lovenox 40 mg SC daily
--- NOTE | 2017-06-23 18:37 | RAD ---
HISTORY: Shortness of breath, cough. Relevant medical history: Smoker COMPARISON: June 22, 2017. TECHNIQUE: Chest PA and lateral FINDINGS: LUNGS: Hyperinflation, manifestations of COPD. No active pulmonary disease. PLEURA: No significant pleural effusion identified. No pneumothorax apparent. CARDIOVASCULAR: Normal. OSSEOUS STRUCTURES: No significant abnormalities. VISUALIZED UPPER ABDOMEN: Normal. OTHER FINDINGS: None. IMPRESSION: No active disease. No significant interval change compared to the prior examination(s).
[2017-06-24] MEDS: Albuterol-Ipratrop 3 mg / 0.5 (3 ml) UD INH SCH ×6 (04:47→21:05)
--- NOTE | 2017-06-24 08:40 | CP.PCM.PN ---
Subjective - Date & Time of Evaluation Date of Evaluation: 06/24/17 Time of Evaluation: 07:36 - Subjective Subjective: Patient seen and examined this morning, reports feeling better, states mild cough and mild sob when cough. Looks less dyspneic than yesterday.Afebrile, ambulating. Denies chest pain, palpitations. States good appetite. No urinary symptoms, normal BM. Objective - Vital Signs/Intake and Output Vital Signs (last 24 hours): Temp Pulse Resp BP Pulse Ox 97.9 F 65 18 137/65 99 06/24/17 07:57 06/24/17 07:57 06/24/17 07:57 06/24/17 07:57 06/24/17 07:57 - Medications Medications: Current Medications Albuterol (Ventolin Hfa 90 Mcg/Actuation (8 G)) 2 puff IH Q6 PRN PRN Reason: Shortness of Breath Albuterol/Ipratropium (Duoneb 3 Mg/0.5 Mg (3 Ml) Ud) 3 ml INH RQ4 [facility] Last Admin: 06/24/17 07:16 Dose: 3 ml Calamine (Calamine Lotion) 1 applic TOP TID [facility] Last Admin: 06/23/17 19:45 Dose: 1 applic Enoxaparin Sodium (Lovenox) 40 mg SC DAILY [facility] PRN Reason: Protocol Last Admin: 06/23/17 08:31 Dose: 40 mg Levofloxacin (Levaquin) 750 mg PO DAILY [facility] PRN Reason: Protocol Last Admin: 06/23/17 08:31 Dose: 750 mg Methylprednisolone (Solu-Medrol) 40 mg IVP Q12 [facility] Last Admin: 06/23/17 22:41 Dose: 40 mg Montelukast Sodium (Singulair) 10 mg PO HS [facility] Last Admin: 06/23/17 22:41 Dose: 10 mg - Labs Labs: 06/23/17 04:50 06/23/17 04:50 PT 11.2 Seconds (9.8-13.1) 06/22/17 12:06 INR 1.0 (0.9-1.2) 06/22/17 12:06 APTT 37.1 Seconds (25.6-37.1) 06/22/17 12:06 - Constitutional Appears: No Acute Distress - Head Exam Head Exam: NORMAL INSPECTION - Eye Exam Eye Exam: EOMI, PERRL - ENT Exam ENT Exam: Mucous Membranes Moist - Respiratory Exam Respiratory Exam: Decreased Breath Sounds (b/l), Wheezes (diffuse). absent: Accessory Muscle Use, Chest Wall Tenderness - Cardiovascular Exam Cardiovascular Exam: REGULAR RHYTHM, +S1, +S2. absent: Tachycardia - GI/Abdominal Exam GI & Abdominal Exam: Soft, Normal Bowel Sounds. absent: Distended, Tenderness - Extremities Exam Extremities Exam: absent: Calf Tenderness - Neurological Exam Neurological Exam: Alert, Awake, Oriented x3 - Skin Skin Exam: Warm Additional comments: Rash improving, less pruritus reported Assessment and Plan - Assessment and Plan (Free Text) Assessment: 66 yo M patient with PMH on CAD, COPD, extensive smoking history admitted due to COPD exacerbation. Transfer to Med/surg. Plan: 1- COPD exacerbation - heavy smoking history - sob, cough, sputum production - duoneb Q4, PEF before and after tx - Solumedrol 40 mg IV BID - Levofloxacin 750mg PO daily (Day 3) - Start O2 @ 3L to keep sat above 93% - CXR 06/23: signs consistent w/ COPD, no infiltrates or effusions noted. - f/u sputum cx - Evaluated by Pulm Dr Ervin on previous admission. -d/c on ventolin and singulair -Pulm Dr Gore consult placed, recs appreciated. 2- CAD - heart healthy diet - h/o MD on 2004 - compensated - no on meds - pt denies h/o HTN, DM, HPL 3- Scabies - isolation, contact precautions - s/p Permethrin 5% cream 1 applic 4- DVT prophylaxis - Lovenox 40 mg SC daily
[2017-06-24] MEDS: Enoxaparin 40 mg Syringe SC SCH (09:38)
[2017-06-24] MEDS: Calamine/Zinc Oxide LOTION TOP SCH ×3 (09:38→16:31)
[2017-06-24] MEDS: levoFLOXacin 750 MG TAB PO SCH (09:38)
[2017-06-24] MEDS: MethylPREDNISolone 40 mg Vial IVP SCH ×2 (09:40→21:49)
--- NOTE | 2017-06-24 14:02 | CP.PCM.CON ---
History of Present Illness - History of Present Illness History of Present Illness: Pulmonary Consult. 66 y/o M, Homeless, Hx of COPD and B/A since childhood, Hx of heavy smoker, brought by EMS to ER [facility] [place] on 06/23/17 for evaluation of moderate to severe SOB, associated wheezing and productive cough with scant yellowish phlegms. Worsening symptoms: TREJO, CP when coughing, Hx start smoking at 15 y/o, increased to 2 PPD at 21 y/o until 2 - 3 months ago that decreased to 1/2 PPD. Aggravated factor: Not in compliance with medications. As per Pt's record; Pt was admitted to [facility] on 06/12/17 and was discharged on 06/16/17 after being Tx for same complaints. 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 Stenosis R proximal superficial femoral artery, Pt was placed on ASA, Statin, and was counseled to stop smoking and to f/u with the Clinic in 1-2 weeks. 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 Pt denied: Chills, n/v/d, abdominal pain, CP, palpitations, dizziness, syncope , headache, urinary symptoms, sick contact, recent travel out of [facility]. CXR x 2 shows: No active disease. EKG: Normal sinus rhythm. Review of Systems - Review of Systems All systems: reviewed and no additional remarkable complaints except (HPI) Past Patient History - Past Medical History & Family History Past Medical History?: Yes Pertinent Family History: Unknown - Past Social History Smoking Status: Heavy Smoker > 10 Cigarettes Daily Alcohol: None Drugs: Cocaine Home Situation {Lives}: Homeless - CARDIAC Hx Cardiac Disorders: Yes Hx Heart Attack: Yes - PULMONARY Hx Respiratory Disorders: Yes (asthma, copd) Hx Asthma: Yes Hx Chronic Obstructive Pulmonary Disease (COPD): Yes - NEUROLOGICAL Hx Neurological Disorder: No - HEENT Hx HEENT Problems: No - RENAL Hx Chronic Kidney Disease: No - ENDOCRINE/METABOLIC Hx Endocrine Disorders: No - HEMATOLOGICAL/ONCOLOGICAL Hx Blood Disorders: No Hx AIDS: No Hx Human Immunodeficiency Virus (HIV): No - INTEGUMENTARY Hx Dermatological Problems: No - MUSCULOSKELETAL/RHEUMATOLOGICAL Hx Musculoskeletal Disorders: No Hx Falls: No - GASTROINTESTINAL Hx Gastrointestinal Disorders: No - GENITOURINARY/GYNECOLOGICAL Hx Genitourinary Disorders: No - PSYCHIATRIC Hx Psychophysiologic Disorder: No Hx Substance Use: Yes - SURGICAL HISTORY Hx Surgeries: Yes Hx Herniorrhaphy: Yes - ANESTHESIA Hx Anesthesia: Yes Hx Anesthesia Reactions: No Hx Malignant Hyperthermia: No Has any member of the family had a problem w/ anesthesia?: No Meds Home Medications: Home Medication List Medication Instructions Recorded Confirmed Type Albuterol 0.5% [Albuterol 0.5% 3 ml IH Q6H PRN #30 neb 06/22/17 Rx Inhal Love (2.5 mg/0.5 ml) UD] Prednisone 50 mg PO DAILY #4 tab 06/22/17 Rx Allergies/Adverse Reactions: Allergies Allergy/AdvReac Type Severity Reaction Status Date / Time No Known Allergies Allergy Unverified 02/09/17 20:40 - Medications Medications: Current Medications Albuterol (Ventolin Hfa 90 Mcg/Actuation (8 G)) 2 puff IH Q6 PRN PRN Reason: Shortness of Breath Albuterol/Ipratropium (Duoneb 3 Mg/0.5 Mg (3 Ml) Ud) 3 ml INH RQ3 [facility] Calamine (Calamine Lotion) 1 applic TOP TID [facility] Last Admin: 06/24/17 12:03 Dose: 1 applic Enoxaparin Sodium (Lovenox) 40 mg SC DAILY [facility] PRN Reason: Protocol Last Admin: 06/24/17 09:38 Dose: 40 mg Levofloxacin (Levaquin) 750 mg PO DAILY [facility] PRN Reason: Protocol Last Admin: 06/24/17 09:38 Dose: 750 mg Methylprednisolone (Solu-Medrol) 40 mg IVP Q12 [facility] Last Admin: 06/24/17 09:40 Dose: 40 mg Montelukast Sodium (Singulair) 10 mg PO HS [facility] Last Admin: 06/23/17 22:41 Dose: 10 mg Physical Exam - Constitutional Appears: No Acute Distress - Head Exam Head Exam: NORMAL INSPECTION - Eye Exam Eye Exam: PERRL - ENT Exam ENT Exam: Normal Exam - Neck Exam Neck exam: Positive for: Normal Inspection - Respiratory Exam Respiratory Exam: Decreased Breath Sounds (b/l), Rhonchi (scattered), Wheezes - Cardiovascular Exam Cardiovascular Exam: REGULAR RHYTHM - GI/Abdominal Exam GI & Abdominal Exam: Normal Bowel Sounds, Soft - Extremities Exam Extremities exam: Positive for: normal inspection - Back Exam Back exam: NORMAL INSPECTION - Neurological Exam Neurological exam: Alert, Oriented x3 - Psychiatric Exam Psychiatric exam: Normal Mood - Skin Skin Exam: Normal Color, Warm Results - Vital Signs Recent Vital Signs: Last Vital Signs Temp 98.2 F 06/24/17 12:12 Pulse 71 06/24/17 12:12 Resp 17 06/24/17 12:12 BP 117/66 06/24/17 12:12 Pulse Ox 97 06/24/17 12:12 reviewed J.P. - Labs Result Diagrams: 06/23/17 04:50 06/23/17 04:50 Labs: reviewed J.P. - EKG Data EKG comments: reviewed J.P. - Imaging and Cardiology Chest x-ray Status: Report reviewed by me (Miguel Ángel) Assessment & Plan (1) COPD exacerbation Status: Acute Priority: High - Assessment and Plan (Free Text) Plan: Agree with management plan, continue O2 NC, Levaquin, Duoneb, Solumedrol, Singulair and rest of Tx. CT Chest. - Date & Time Date: 06/24/17 Time: 11:00
[2017-06-25] MEDS: Albuterol-Ipratrop 3 mg / 0.5 (3 ml) UD INH SCH ×7 (00:35→20:16)
[2017-06-25] MEDS: Enoxaparin 40 mg Syringe SC SCH (08:50)
[2017-06-25] MEDS: levoFLOXacin 750 MG TAB PO SCH (08:50)
[2017-06-25] MEDS: Calamine/Zinc Oxide LOTION TOP SCH ×3 (08:50→17:35)
[2017-06-25] MEDS: MethylPREDNISolone 40 mg Vial IVP SCH (08:50)
--- NOTE | 2017-06-25 09:33 | CP.PCM.PN ---
Subjective - Date & Time of Evaluation Date of Evaluation: 06/25/17 Time of Evaluation: 07:35 - Subjective Subjective: Patient seen and examined this morning at bedside, patient reports much better, breathing comfortably, cough improving, no sob. Afebrile, ambulating, no chest pain, palpitations. Normal BM. Objective - Vital Signs/Intake and Output Vital Signs (last 24 hours): Temp Pulse Resp BP Pulse Ox 98.0 F 71 18 117/62 98 06/25/17 08:09 06/25/17 08:09 06/25/17 08:09 06/25/17 08:09 06/25/17 08:09 - Medications Medications: Current Medications Albuterol (Ventolin Hfa 90 Mcg/Actuation (8 G)) 2 puff IH Q6 PRN PRN Reason: Shortness of Breath Albuterol/Ipratropium (Duoneb 3 Mg/0.5 Mg (3 Ml) Ud) 3 ml INH RQ3 [facility] Last Admin: 06/25/17 07:33 Dose: 3 ml Calamine (Calamine Lotion) 1 applic TOP TID [facility] Last Admin: 06/25/17 08:50 Dose: 1 applic Enoxaparin Sodium (Lovenox) 40 mg SC DAILY [facility] PRN Reason: Protocol Last Admin: 06/25/17 08:50 Dose: 40 mg Levofloxacin (Levaquin) 750 mg PO DAILY [facility] PRN Reason: Protocol Last Admin: 06/25/17 08:50 Dose: 750 mg Methylprednisolone (Solu-Medrol) 20 mg IVP Q12 [facility] Montelukast Sodium (Singulair) 10 mg PO HS [facility] Last Admin: 06/24/17 21:44 Dose: 10 mg - Labs Labs: 06/23/17 04:50 06/23/17 04:50 PT 11.2 Seconds (9.8-13.1) 06/22/17 12:06 INR 1.0 (0.9-1.2) 06/22/17 12:06 APTT 37.1 Seconds (25.6-37.1) 06/22/17 12:06 - Constitutional Appears: No Acute Distress - Head Exam Head Exam: NORMAL INSPECTION - Respiratory Exam Respiratory Exam: Wheezes (mild ), NORMAL BREATHING PATTERN. absent: Accessory Muscle Use, Rales, Rhonchi - Cardiovascular Exam Cardiovascular Exam: REGULAR RHYTHM, +S1, +S2. absent: Tachycardia - GI/Abdominal Exam GI & Abdominal Exam: Soft, Normal Bowel Sounds. absent: Distended, Tenderness - Extremities Exam Extremities Exam: absent: Calf Tenderness - Neurological Exam Neurological Exam: Alert, Awake, Oriented x3 Assessment and Plan - Assessment and Plan (Free Text) Assessment: 66 yo M patient with PMH on CAD, COPD, extensive smoking history admitted due to COPD exacerbation. Plan: 1- COPD exacerbation - heavy smoking history - duoneb Q6, PEF before and after tx - Solumedrol 40 mg IV daily (tapered) - Levofloxacin 750mg PO daily (Day 4) - Start O2 @ 3L to keep sat above 93% - f/u sputum cx - Evaluated by Pulm Dr Ervin on previous admission. -d/c on ventolin and singulair -Pulm Dr Gore recs: -Agree with management plan. Chest CT 2- CAD - heart healthy diet - h/o [facility] on 2004 - compensated - no on meds - pt denies h/o HTN, DM, HPL 3- Scabies - isolation, contact precautions - s/p Permethrin 5% cream 1 applic 4- DVT prophylaxis - Lovenox 40 mg SC daily
[2017-06-25] MEDS ORDERED: MethylPREDNISolone 40 mg Vial IVP SCH (09:45)
--- NOTE | 2017-06-25 13:28 | CP.PCM.PN ---
Subjective - Date & Time of Evaluation Date of Evaluation: 06/25/17 Time of Evaluation: 11:30 - Subjective Subjective: F/U COPD Exacerbation. Objective - Vital Signs/Intake and Output Vital Signs (last 24 hours): Temp Pulse Resp BP Pulse Ox 97.8 F 98 H 20 133/81 93 L 06/25/17 12:00 06/25/17 12:00 06/25/17 12:00 06/25/17 12:00 06/25/17 12:00 - Medications Medications: Current Medications Albuterol (Ventolin Hfa 90 Mcg/Actuation (8 G)) 2 puff IH Q6 PRN PRN Reason: Shortness of Breath Albuterol/Ipratropium (Duoneb 3 Mg/0.5 Mg (3 Ml) Ud) 3 ml INH RQ6 [facility] Calamine (Calamine Lotion) 1 applic TOP TID [facility] Last Admin: 06/25/17 08:50 Dose: 1 applic Enoxaparin Sodium (Lovenox) 40 mg SC DAILY [facility] PRN Reason: Protocol Last Admin: 06/25/17 08:50 Dose: 40 mg Levofloxacin (Levaquin) 750 mg PO DAILY [facility] PRN Reason: Protocol Last Admin: 06/25/17 08:50 Dose: 750 mg Methylprednisolone (Solu-Medrol) 40 mg IVP DAILY [facility] Montelukast Sodium (Singulair) 10 mg PO HS [facility] Last Admin: 06/24/17 21:44 Dose: 10 mg - Labs Labs: 06/23/17 04:50 06/23/17 04:50 PT 11.2 Seconds (9.8-13.1) 06/22/17 12:06 INR 1.0 (0.9-1.2) 06/22/17 12:06 APTT 37.1 Seconds (25.6-37.1) 06/22/17 12:06 - Constitutional Appears: No Acute Distress - Head Exam Head Exam: NORMAL INSPECTION - Eye Exam Eye Exam: PERRL - ENT Exam ENT Exam: Normal Exam - Neck Exam Neck Exam: Normal Inspection - Respiratory Exam Respiratory Exam: Decreased Breath Sounds (b/l), Rhonchi (scattered), Wheezes ( scattered) - Cardiovascular Exam Cardiovascular Exam: REGULAR RHYTHM - GI/Abdominal Exam GI & Abdominal Exam: Soft, Normal Bowel Sounds - Extremities Exam Extremities Exam: Normal Inspection - Back Exam Back Exam: NORMAL INSPECTION - Neurological Exam Neurological Exam: Alert, Oriented x3 - Psychiatric Exam Psychiatric exam: Normal Mood - Skin Skin Exam: Normal Color, Warm Assessment and Plan (1) COPD exacerbation Status: Acute
--- NOTE | 2017-06-25 18:59 | CT ---
PROCEDURE: CT Chest without contrast HISTORY: COPD Exacerbation COMPARISON: 04/10/2013 TECHNIQUE: Contiguous axial images were obtained through the chest without intravenous contrast enhancement. Sagittal and coronal reconstructions were performed. Radiation dose (DLP): 208.10 mGy-cm. This CT exam was performed using one or more of the following dose reduction techniques: Automated exposure control, adjustment of the mA and/or kV according to patient size, and/or use of iterative reconstruction technique. FINDINGS: LUNGS: Centrilobular emphysematous change. Similar findings identified on a prior CT of the thorax 04/10/2013. No suspicious pulmonary nodules, masses or infiltrates. Incidental finding(s): Calcified granuloma basilar segment right lower lobe. MEDIASTINUM: Unremarkable thoracic aorta. No aneurysm. Normal sized heart. Main pulmonary artery unremarkable. No vascular congestion. No lymphadenopathy. PLEURA: No pleural fluid. No pneumothorax. BONES: No fracture. No destructive lesion. UPPER ABDOMEN: Grossly unremarkable. OTHER FINDINGS: None. IMPRESSION: Moderate -severe centrilobular emphysema. No significant interval change compared to the prior examination(s).
[2017-06-26] MEDS: Albuterol-Ipratrop 3 mg / 0.5 (3 ml) UD INH SCH ×3 (01:03→13:07)
[2017-06-26 05:58] LABS: BASO # 0.1 K/uL (0.0-0.2); BASO % 0.4 % (0.0-2.0); EOS % 0.2 % (0.0-4.0); HEMOGLOBIN 15.4 g/dL (12.0-18.0); LYMPH # 1.4 K/uL (1.0-4.3); LYMPH % 8.2 % (20.0-40.0); MEAN CELL VOLUME 92.4 fl (80.0-94.0); MEAN CORPUSCULAR HEMOGLOBIN 30.8 pg (27.0-31.0); MEAN CORPUSCULAR HGB CONC 33.3 g/dL (33.0-37.0); MEAN PLATELET VOLUME 7.7 fl (7.2-11.7); MONO # 1.1 K/uL (0.0-0.8); MONO % 6.6 % (0.0-10.0); NEUT # 14.5 K/uL (1.8-7.0); NEUT % 84.6 % (50.0-75.0); NRBC % 0.1 % (0.0-0.0); PLATELET COUNT 343 K/uL (130-400); RBC 4.98 Mil/uL (4.40-5.90); RED CELL DISTRIBUTION WIDTH 14.4 % (11.5-14.5); WHITE BLOOD COUNT 17.2 K/uL (4.8-10.8)
[2017-06-26 06:28] LABS: ALB/GLOB RATIO 1.2 (1.0-2.1); ALBUMIN 3.6 g/dL (3.5-5.0); ALT/SGPT 33 U/L (21-72); AST/SGOT 11 U/L (17-59); BLOOD UREA NITROGEN 23 mg/dl (9-20); CALCIUM 9.2 mg/dL (8.4-10.2); GFR AFRICAN-AMERICAN > 60; GFR NON-AFRICAN AMERICAN > 60
[2017-06-26] MEDS: levoFLOXacin 750 MG TAB PO SCH (08:38)
[2017-06-26] MEDS: Enoxaparin 40 mg Syringe SC SCH (08:39)
[2017-06-26] MEDS: Calamine/Zinc Oxide LOTION TOP SCH ×2 (08:40→13:50)
[2017-06-26 08:50] LABS: BANDS 1 % (0-2); LYMPHOCYTE 8 % (20-50); MONOCYTE 9 % (0-10); NEUTROPHIL 81 % (42-75); REACTIVE LYMPHOCYTES 1 % (0-0); TOTAL CELLS COUNTED 100
[2017-06-26 08:51] LABS: ANISOCYTOSIS SLIGHT; PLATELET ESTIMATE NORMAL (NORMAL)
[2017-06-26] MEDS ORDERED: MethylPREDNISolone 40 mg Vial IVP SCH (09:00)
--- NOTE | 2017-06-26 13:47 | CP.PCM.PN ---
Objective - Vital Signs/Intake and Output Vital Signs (last 24 hours): Temp Pulse Resp BP Pulse Ox 97.4 F L 76 20 122/79 96 06/26/17 12:23 06/26/17 12:23 06/26/17 12:23 06/26/17 12:23 06/26/17 12:23 - Medications Medications: Current Medications Albuterol (Ventolin Hfa 90 Mcg/Actuation (8 G)) 2 puff IH Q6 PRN PRN Reason: Shortness of Breath Albuterol/Ipratropium (Duoneb 3 Mg/0.5 Mg (3 Ml) Ud) 3 ml INH RQ6 [facility] Last Admin: 06/26/17 13:07 Dose: 3 ml Calamine (Calamine Lotion) 1 applic TOP TID [facility] Last Admin: 06/26/17 08:40 Dose: 1 applic Enoxaparin Sodium (Lovenox) 40 mg SC DAILY [facility] PRN Reason: Protocol Last Admin: 06/26/17 08:39 Dose: 40 mg Methylprednisolone (Solu-Medrol) 40 mg IVP DAILY [facility] Last Admin: 06/26/17 08:39 Dose: 40 mg Montelukast Sodium (Singulair) 10 mg PO HS [facility] Last Admin: 06/25/17 21:12 Dose: 10 mg - Labs Labs: 06/26/17 04:51 06/26/17 05:11 PT 11.2 Seconds (9.8-13.1) 06/22/17 12:06 INR 1.0 (0.9-1.2) 06/22/17 12:06 APTT 37.1 Seconds (25.6-37.1) 06/22/17 12:06 Assessment and Plan (1) COPD exacerbation Status: Acute
[2017-06-26 16:11] VITALS: BP 115/68; PULSE 80; RESP 18; TEMP 97.8; O2SAT 95
--- NOTE | 2017-06-26 16:49 | CP.PCM.DIS ---
Provider - Provider Date of Admission: 06/22/17 16:59 Attending physician: Mariangel Yao MD Consults: Pulmonology Dr Gore Time Spent in preparation of Discharge (in minutes): 30 Diagnosis - Discharge Diagnosis (1) COPD exacerbation Status: Acute Priority: High Hospital Course - Lab Results Lab Results: Micro Results 06/22/17 12:15 Blood-Venous Blood Culture - Preliminary NO GROWTH AFTER 4 DAYS 06/22/17 11:50 Blood-Venous Blood Culture - Preliminary NO GROWTH AFTER 4 DAYS 06/22/17 19:46 Sputum Gram Stain - Final 06/22/17 19:46 Sputum Sputum Culture - Final NORMAL ORAL LEX Most Recent Lab Values WBC 17.2 K/uL (4.8-10.8) H D 06/26/17 04:51 RBC 4.98 Mil/uL (4.40-5.90) 06/26/17 04:51 Hgb 15.4 g/dL (12.0-18.0) 06/26/17 04:51 Hct 46.1 % (35.0-51.0) 06/26/17 04:51 MCV 92.4 fl (80.0-94.0) 06/26/17 04:51 MCH 30.8 pg (27.0-31.0) 06/26/17 04:51 MCHC 33.3 g/dL (33.0-37.0) 06/26/17 04:51 RDW 14.4 % (11.5-14.5) 06/26/17 04:51 Plt Count 343 K/uL (130-400) 06/26/17 04:51 MPV 7.7 fl (7.2-11.7) 06/26/17 04:51 Neut % (Auto) 84.6 % (50.0-75.0) H 06/26/17 04:51 Lymph % (Auto) 8.2 % (20.0-40.0) L 06/26/17 04:51 [place] % (Auto) 6.6 % (0.0-10.0) 06/26/17 04:51 Eos % (Auto) 0.2 % (0.0-4.0) 06/26/17 04:51 Baso % (Auto) 0.4 % (0.0-2.0) 06/26/17 04:51 Neut # (Auto) 14.5 K/uL (1.8-7.0) H 06/26/17 04:51 Lymph # (Auto) 1.4 K/uL (1.0-4.3) 06/26/17 04:51 [place] # (Auto) 1.1 K/uL (0.0-0.8) H 06/26/17 04:51 Eos # (Auto) 0.0 K/uL (0.0-0.7) 06/26/17 04:51 Baso # (Auto) 0.1 K/uL (0.0-0.2) 06/26/17 04:51 Neutrophils % (Manual) 81 % (42-75) H 06/26/17 04:51 Band Neutrophils % 1 % (0-2) 06/26/17 04:51 Lymphocytes % (Manual) 8 % (20-50) L 06/26/17 04:51 Reactive Lymphs % 1 % (0-0) H 06/26/17 04:51 Monocytes % (Manual) 9 % (0-10) 06/26/17 04:51 Eosinophils % (Manual) 7 % (0-7) 06/22/17 12:06 Platelet Estimate Normal (NORMAL) 06/26/17 04:51 RBC Morphology Normal (NORMAL) 06/22/17 18:30 Anisocytosis (manual) Slight 06/26/17 04:51 PT 11.2 Seconds (9.8-13.1) 06/22/17 12:06 INR 1.0 (0.9-1.2) 06/22/17 12:06 APTT 37.1 Seconds (25.6-37.1) 06/22/17 12:06 Sodium 136 mmol/l (132-148) 06/26/17 05:11 Potassium 4.2 MMOL/L (3.6-5.0) 06/26/17 05:11 Chloride 93 mmol/L (98-107) L 06/26/17 05:11 Carbon Dioxide 31 mmol/L (22-30) H 06/26/17 05:11 Anion Gap 16 (10-20) 06/26/17 05:11 BUN 23 mg/dl (9-20) H 06/26/17 05:11 Creatinine 0.6 mg/dl (0.8-1.5) L 06/26/17 05:11 Est GFR ( Amer) > 60 06/26/17 05:11 Est GFR (Non-Af Amer) > 60 06/26/17 05:11 POC Glucose (mg/dL) 121 mg/dL (65-110) H 06/26/17 15:50 Random Glucose 122 mg/dL (75-110) H 06/26/17 05:11 Calcium 9.2 mg/dL (8.4-10.2) 06/26/17 05:11 Total Bilirubin 0.3 mg/dl (0.2-1.3) 06/26/17 05:11 AST 11 U/L (17-59) L D 06/26/17 05:11 ALT 33 U/L (21-72) 06/26/17 05:11 Alkaline Phosphatase 67 U/L (38-126) 06/26/17 05:11 Troponin I < 0.0120 ng/mL (0.00-0.120) 06/23/17 04:50 Total Protein 6.7 G/DL (6.3-8.2) 06/26/17 05:11 Albumin 3.6 g/dL (3.5-5.0) 06/26/17 05:11 Globulin 3.1 gm/dL (2.2-3.9) 06/26/17 05:11 Albumin/Globulin Ratio 1.2 (1.0-2.1) 06/26/17 05:11 Urine Color Yellow (YELLOW) 06/22/17 16:40 Urine Clarity Clear (Clear) 06/22/17 16:40 Urine pH 7.0 (5.0-8.0) 06/22/17 16:40 Ur Specific [place] 1.009 (1.003-1.030) 06/22/17 16:40 Urine Protein Negative mg/dL (NEGATIVE) 06/22/17 16:40 Urine Glucose (UA) Neg mg/dL (Normal) 06/22/17 16:40 Urine Ketones Trace mg/dL (NEGATIVE) 06/22/17 16:40 Urine Blood Negative (NEGATIVE) 06/22/17 16:40 Urine Nitrate Negative (NEGATIVE) 06/22/17 16:40 Urine Bilirubin Negative (NEGATIVE) 06/22/17 16:40 Urine Urobilinogen 0.2-1.0 mg/dL (0.2-1.0) 06/22/17 16:40 Ur Leukocyte Esterase Neg David/uL (Negative) 06/22/17 16:40 Urine RBC (Auto) 1 /hpf (0-3) 06/22/17 16:40 Urine Microscopic WBC 1 /hpf (0-5) 06/22/17 16:40 Urine Opiates Screen Negative (NEGATIVE) 06/22/17 17:51 Urine Methadone Screen Negative (NEGATIVE) 06/22/17 17:51 Ur Barbiturates Screen Negative (NEGATIVE) 06/22/17 17:51 Ur Phencyclidine Scrn Negative (NEGATIVE) 06/22/17 17:51 Ur Amphetamines Screen Negative (NEGATIVE) 06/22/17 17:51 U Benzodiazepines Scrn Negative (NEGATIVE) 06/22/17 17:51 U Oth Cocaine Metabols Positive (NEGATIVE) H 06/22/17 17:51 U Cannabinoids Screen Negative (NEGATIVE) 06/22/17 17:51 Hepatitis C Antibody Negative (NEGATIVE) 06/25/17 10:26 Influenza Typ A,B (EIA) Negative for flu a/b (NEGATIVE) 06/22/17 17:51 - Hospital Course Hospital Course: 66 yo male with history of COPD, extensive smoking hx admitted due to COPD exacerbation. Patient is homeless and states he can't afford for his medicines. Patient had previous admission last week for same . During admission he received treatment with duonebs, IV steroids and Levofloxacin. Patient was seen by Dr. Gore, who ordered a chest CT which was normal. Patient's respiratory status improved and is stable for discharge. Dr Gore recommends c/w steroids course for 7 more days and ventolin. Patient was discharged to home and is to follow up with clinic in 1-2 weeks. Also was provided with script for steroids and coupon for asmanex inh. ER precaution given. Discharge Exam - Head Exam Head Exam: NORMAL INSPECTION - Eye Exam Eye Exam: Normal appearance - Respiratory Exam Respiratory Exam: Wheezes (mild), NORMAL BREATHING PATTERN - Cardiovascular Exam Cardiovascular Exam: REGULAR RHYTHM, +S1, +S2. absent: Tachycardia - GI/Abdominal Exam GI & Abdominal Exam: Normal Bowel Sounds, Soft. absent: Tenderness - Neurological Exam Neurological exam: Alert, CN II-XII Intact, Oriented x3 - Psychiatric Exam Psychiatric exam: Normal Mood Discharge Plan - Discharge Medications Prescriptions: Albuterol 0.5% [Albuterol 0.5% Inhal Love (2.5 mg/0.5 ml) UD] 3 ml IH Q6H PRN # 30 neb PRN Reason: Shortness Of Breath Prednisone [Deltasone] 20 mg PO TID 3 Days #9 tablet Prednisone [Jayson] 20 mg PO BID 3 Days #6 tablet. Prednisone [Jayson] 20 mg PO DAILY 3 Days #3 tab - Follow Up Plan Condition: STABLE Disposition: HOME/ ROUTINE Instructions: Exacerbation of COPD (DC) Additional Instructions: Patient will receive a call from Janelle Gibbs to confirm an appt at [facility]. Referrals: [facility] [place] [Outside] [facility] [place] [Outside]
== END 2017-06-26 19:00 | disposition home or self-care (01) | DRG 88 ==
LOC: H.ER 10:31 → H.ERHOLD 16:59 → H.TEL 20:36
PROVIDERS: ADMIT Family Medicine Geriatric Medicine; ATTEND Family Medicine Geriatric Medicine
DX: J44.1 Chronic obstructive pulmonary disease with (acute) exacerbation (principal); I25.10 Atherosclerotic heart disease of native coronary artery without angina pectoris; B86 Scabies; M79.661 Pain in right lower leg; I25.2 Old myocardial infarction; F17.210 Nicotine dependence, cigarettes, uncomplicated; Z79.82 Long term (current) use of aspirin; Z59.0 Homelessness

== ENCOUNTER 2017-07-04 14:38 | Emergency (ER) | payer SELFPAY ==
--- NOTE | 2017-07-04 14:52 | ED PDOC ---
HPI: SOB/CHF/COPD Time Seen by Provider: 07/04/17 14:50 Chief Complaint (Nursing): Respiratory Distress Chief Complaint (Provider): SOB History Per: Patient, EMS Additional Complaint(s): 66-year-old male with history of COPD presents to emergency department with shortness of breath that started 1 hour prior to arrival. [facility]. Ambulance was called and patient was given DuoNeb in the field. Patient feels better after DuoNeb was given. Patient states he has also had dry cough for the past 3 days with no known fever or chills. PMD: does not remember name Past Medical History Reviewed: Historical Data, Nursing Documentation, Vital Signs Vital Signs: Last Vital Signs Temp 98.3 F 07/04/17 14:42 Pulse 58 L 07/04/17 16:31 Resp 17 07/04/17 16:31 BP 116/59 L 07/04/17 16:31 Pulse Ox 96 07/04/17 16:31 - Medical History PMH: Asthma, COPD - Family History Family History: States: No Known Family Hx - Living Arrangements Living Arrangements: With Family - Social History Current smoker - smoking cessation education provided: Yes (1-2 cigarettes per day) - Home Medications Home Medications: Ambulatory Orders Medication Instructions Recorded Albuterol Sulfate [Proair Hfa] 2 puff IH Q6 PRN 06/12/17 Fluticasone/Salmeterol [Advair 1 puff IH Q12 06/12/17 250-50 Diskus] Aspirin 325 mg PO DAILY #30 tab 06/16/17 Atorvastatin [Lipitor] 40 mg PO DAILY #30 tab 06/16/17 Montelukast [Singulair] 10 mg PO HS #30 tab 06/16/17 Albuterol 0.5% [Albuterol 0.5% 3 ml IH Q6H PRN #30 neb 06/22/17 Inhal Love (2.5 mg/0.5 ml) UD] Prednisone [Deltasone] 20 mg PO TID 3 Days #9 tablet 06/26/17 Prednisone [Jayson] 20 mg PO BID 3 Days #6 tablet. 06/26/17 Prednisone [Jayson] 20 mg PO DAILY 3 Days #3 tab 06/26/17 Albuterol Sulfate [Ventolin Hfa] 1 puff IH Q4 PRN #1 inh 07/04/17 Azithromycin [Zithromax] 250 mg PO DAILY #6 tab 07/04/17 Benzonatate 200 mg PO TID PRN #20 capsule 07/04/17 Prednisone 50 mg PO DAILY #5 tablet 07/04/17 - Allergies Allergies/Adverse Reactions: Allergies Allergy/AdvReac Type Severity Reaction Status Date / Time No Known Allergies Allergy Unverified 02/09/17 20:40 Curb-65 Severity Score - CURB-65 Severity Score Confusion: No Bun >19mg/dl (>7mmol/L): No Respiratory Rate greater than/equal to 30: No Systolic BP <90 or Diastolic BP less than/equal 60mmHg: No Age >64: No Curb-65 Score: 0 Percentage 30-day mortality: 0.6% Wells Criteria for PE - Wells Criteria for Pulmonary Embolism Clinical Signs and Symptoms of DVT: No P.E is #1 Diagnosis, or Equally Likely: No Heart Rate >100: No Immobilization at least 3 days;Surgery previous 4 weeks: No Previous, objectively diagnosed PE or DVT: No Hemoptysis: No Malignancy w/treatment within 6 months, or palliative: No Total Score: 0 Review of Systems ROS Statement: Except As Marked, All Systems Reviewed And Found Negative Constitutional: Negative for: Fever Cardiovascular: Negative for: Chest Pain Respiratory: Positive for: Shortness of Breath, Wheezing Physical Exam - Reviewed Nursing Documentation Reviewed: Yes Vital Signs Reviewed: Yes - Physical Exam Appears: Positive for: Well, Non-toxic, No Acute Distress Skin: Negative for: Rash Eye Exam: Positive for: Normal appearance Cardiovascular/Chest: Positive for: Regular Rate, Rhythm Respiratory: Positive for: Wheezing (b/l inspiratory and exp wheezing). Negative for: Crackles, Rales, Rhonchi, Respiratory Distress Gastrointestinal/Abdominal: Positive for: Soft. Negative for: Tenderness Extremity: Positive for: Normal ROM. Negative for: Pedal Edema Neurologic/Psych: Positive for: Alert, Oriented - Laboratory Results Result Diagrams: 07/04/17 15:15 07/04/17 15:15 - ECG Interpretation Of ECG: NSR 70 bpm, no acute finding, reviewed by PA and ED attending O2 Sat by Pulse Oximetry: 99 Pulse Ox Interpretation: Normal - Other Rad CXR X-Ray: Interpreted by Me, Viewed By Me X-Ray Interpretation: COPD, no infiltrate Nebulizer Treatments/Peak Flow - Duonebs Number of Bronchodilator Doses given?: 2 (duoneb) - Pre/Post Peak Flow Pre Treatment Peak Flow: 250 Post treatment Peak Flow: 300 - Steroid Treatment Steroid: IV (125 mg IV solumedrol) - Clinical Response Clinical Response: Improved Medical Decision Making Medical Decision Makin66 year old with COPD exacerbation Plan: CXR EKG CBC CMP Trop IV solumedrol Duoneb x 2 Patient is aware of all diagnostic testing results, all questions answered. Patient feels better after DuoNeb treatments were given. Upon reexamination, wheezing has resolved. Prescriptions given for Ventolin inhaler, Zithromax, Tessalon Perles and prednisone. Patient was advised to take meds as directed and follow up with primary doctor in 2-3 days. Smoking cessation instructions given. Disposition - Clinical Impression Clinical Impression: COPD with acute bronchitis - Patient ED Disposition Is Patient to be Admitted: No Counseled Patient/Family Regarding: Studies Performed, Diagnosis, Need For Followup, Rx Given, Smoking Cessation - Disposition Referrals: [facility] [Outside] Disposition: Routine/Home Disposition Time: 16:57 Condition: IMPROVED Additional Instructions: Take prescription meds as directed. Follow-up with primary doctor or clinic in 2 -3 days. Prescriptions: Albuterol Sulfate [Ventolin Hfa] 1 puff IH Q4 PRN #1 inh PRN Reason: Wheezing Azithromycin [Zithromax] 250 mg PO DAILY #6 tab Benzonatate 200 mg PO TID PRN #20 capsule PRN Reason: Cough Prednisone 50 mg PO DAILY #5 tablet Instructions: Acute Bronchitis, Exacerbation of COPD Forms: [employer] (Italian) Print Language: CYMRAES Results - Lab Results Lab Results: 07/04/17 07/04/17 15:15 15:15 WBC 16.4 H RBC 4.38 L Hgb 13.3 D Hct 40.7 MCV 92.9 MCH 30.3 MCHC 32.6 L RDW 14.6 H Plt Count 262 MPV 7.4 Neut % (Auto) 67.6 Lymph % (Auto) 11.8 L [place] % (Auto) 9.8 Eos % (Auto) 10.2 H Baso % (Auto) 0.6 Neut # (Auto) 11.1 H Lymph # (Auto) 1.9 [place] # (Auto) 1.6 H Eos # (Auto) 1.7 H Baso # (Auto) 0.1 Sodium 137 Potassium 4.2 Chloride 97 L Carbon Dioxide 31 H Anion Gap 13 BUN 22 H Creatinine 0.6 L Est GFR ( Amer) > 60 Est GFR (Non-Af Amer) > 60 Random Glucose 110 Calcium 8.0 L Total Bilirubin 0.6 AST 15 L D ALT 30 Alkaline Phosphatase 55 Troponin I 0.0220 Total Protein 5.4 L Albumin 3.0 L Globulin 2.4 Albumin/Globulin Ratio 1.2
[2017-07-04] MEDS ORDERED: Albuterol-Ipratrop 3 mg / 0.5 (3 ml) UD INH STA (15:01)
[2017-07-04 15:29] LABS: BASO # 0.1 K/uL (0.0-0.2); BASO % 0.6 % (0.0-2.0); EOS # 1.7 K/uL (0.0-0.7); EOS % 10.2 % (0.0-4.0); HEMOGLOBIN 13.3 g/dL (12.0-18.0); LYMPH # 1.9 K/uL (1.0-4.3); LYMPH % 11.8 % (20.0-40.0); MEAN CELL VOLUME 92.9 fl (80.0-94.0); MEAN CORPUSCULAR HEMOGLOBIN 30.3 pg (27.0-31.0); MEAN CORPUSCULAR HGB CONC 32.6 g/dL (33.0-37.0); MEAN PLATELET VOLUME 7.4 fl (7.2-11.7); MONO # 1.6 K/uL (0.0-0.8); MONO % 9.8 % (0.0-10.0); NEUT # 11.1 K/uL (1.8-7.0); NEUT % 67.6 % (50.0-75.0); RBC 4.38 Mil/uL (4.40-5.90); RED CELL DISTRIBUTION WIDTH 14.6 % (11.5-14.5); WHITE BLOOD COUNT 16.4 K/uL (4.8-10.8)
--- NOTE | 2017-07-04 15:34 | RAD ---
HISTORY: Shortness of breath COMPARISON: 06/23/2017. FINDINGS: LUNGS: The lungs are hyperinflated and there is peribronchial thickening with chronic changes in both lungs. No focal consolidation. PLEURA: No significant pleural effusion identified, no pneumothorax apparent. CARDIOVASCULAR: Normal. OSSEOUS STRUCTURES: No significant abnormalities. VISUALIZED UPPER ABDOMEN: Normal. OTHER FINDINGS: None. IMPRESSION: No active pulmonary disease. COPD.
[2017-07-04 15:45] LABS: ALB/GLOB RATIO 1.2 (1.0-2.1); ALT/SGPT 30 U/L (21-72); AST/SGOT 15 U/L (17-59); BLOOD UREA NITROGEN 22 mg/dl (9-20); GFR AFRICAN-AMERICAN > 60; GFR NON-AFRICAN AMERICAN > 60
[2017-07-04 17:09] VITALS: BP 118/74; PULSE 63; RESP 18; TEMP 97.8; O2SAT 99
== END 2017-07-04 17:05 | disposition home or self-care (01) ==
LOC: H.ER 14:38
DX: J44.0 Chronic obstructive pulmonary disease with (acute) lower respiratory infection (principal); J20.9 Acute bronchitis, unspecified; F17.210 Nicotine dependence, cigarettes, uncomplicated
CPT/HCPCS: 71045; 80053; 84484; 85025; 96374; 99284; J2930

== ENCOUNTER 2017-11-08 12:44 | Inpatient (IN) | payer SELFPAY ==
[2017-11-08] MEDS ORDERED: Albuterol-Ipratrop 3 mg / 0.5 (3 ml) UD INH STA ×2 (13:06→13:07)
[2017-11-08] MEDS ORDERED: Sodium Chloride 0.9% 1,000 ML IV SCH (13:15)
--- NOTE | 2017-11-08 13:31 | ED PDOC ---
HPI: Chest Pain Time Seen by Provider: 11/08/17 13:03 Chief Complaint (Nursing): Chest Pain Chief Complaint (Provider): Chest Pain History Per: Patient History/Exam Limitations: no limitations Onset/Duration Of Symptoms: Days (x 2) Current Symptoms Are (Timing): Still Present Quality: "Pain" Additional Complaint(s): 67 year old male with a history of asthma presents to the ED with chest pain starting yesterday. Patient reports that he ate breakfast this morning, immediately felt sick, vomited and felt better. Now, he states that he has a sharp pain in his back like needles stabbing him and also complains of a fever last night. He is actively coughing and admits to smoking 1 pack a day for 54 years. Denies other complaints. PMD: none provided Past Medical History Reviewed: Historical Data, Nursing Documentation, Vital Signs Vital Signs: Last Vital Signs Temp 97.7 F 11/08/17 12:56 Pulse 66 11/08/17 14:13 Resp 21 11/08/17 13:43 BP 98/60 L 11/08/17 12:56 Pulse Ox 89 L 11/08/17 14:13 - Medical History PMH: Asthma, COPD Denies: HIV, Chronic Kidney Disease - Surgical History Surgical History: No Surg Hx - Family History Family History: States: Unknown Family Hx - Immunization History Hx Tetanus Toxoid Vaccination: No Hx Influenza Vaccination: No Hx Pneumococcal Vaccination: No - Home Medications Home Medications: Ambulatory Orders Medication Instructions Recorded Albuterol Sulfate [Proair Hfa] 2 puff IH Q6 PRN 06/12/17 Fluticasone/Salmeterol [Advair 1 puff IH Q12 06/12/17 250-50 Diskus] Aspirin 325 mg PO DAILY #30 tab 06/16/17 Atorvastatin [Lipitor] 40 mg PO DAILY #30 tab 06/16/17 Montelukast [Singulair] 10 mg PO HS #30 tab 06/16/17 Albuterol 0.5% [Albuterol 0.5% 3 ml IH Q6H PRN #30 neb 06/22/17 Inhal Love (2.5 mg/0.5 ml) UD] Prednisone [Deltasone] 20 mg PO TID 3 Days #9 tablet 06/26/17 Prednisone [Jayson] 20 mg PO BID 3 Days #6 tablet. 06/26/17 Prednisone [Jayson] 20 mg PO DAILY 3 Days #3 tab 06/26/17 Albuterol Sulfate [Ventolin Hfa] 1 puff IH Q4 PRN #1 inh 07/04/17 Azithromycin [Zithromax] 250 mg PO DAILY #6 tab 07/04/17 Benzonatate 200 mg PO TID PRN #20 capsule 07/04/17 Prednisone 50 mg PO DAILY #5 tablet 07/04/17 - Allergies Allergies/Adverse Reactions: Allergies Allergy/AdvReac Type Severity Reaction Status Date / Time No Known Allergies Allergy Verified 11/08/17 12:59 Review of Systems ROS Statement: Except As Marked, All Systems Reviewed And Found Negative Cardiovascular: Positive for: Chest Pain Respiratory: Positive for: Cough Gastrointestinal: Positive for: Vomiting (1 episode this morning). Negative for : Nausea, Abdominal Pain Musculoskeletal: Positive for: Back Pain Physical Exam - Reviewed Nursing Documentation Reviewed: Yes Vital Signs Reviewed: Yes - Physical Exam Appears: Positive for: Non-toxic, No Acute Distress Head Exam: Positive for: ATRAUMATIC, NORMAL INSPECTION, NORMOCEPHALIC Skin: Positive for: Normal Color, Warm, Dry Eye Exam: Positive for: EOMI, Normal appearance, PERRL Neck: Positive for: Normal, Painless ROM, Supple Cardiovascular/Chest: Positive for: Regular Rate, Rhythm. Negative for: Murmur Respiratory: Positive for: Wheezing (fine wheezing bilaterally, inspiratory and expiratory), Other (markedly prolonged expirtory phase). Negative for: Normal Breath Sounds Gastrointestinal/Abdominal: Positive for: Normal Exam, Soft. Negative for: Tenderness Extremity: Positive for: Normal ROM. Negative for: Deformity Neurologic/Psych: Positive for: Alert, Oriented (x 3). Negative for: Motor/ Sensory Deficits - Laboratory Results Result Diagrams: 11/08/17 13:23 11/08/17 13:23 - ECG ECG: Positive for: Interpreted By Me, Viewed By Me ECG Rhythm: Positive for: Sinus Rhythm. Negative for: ST/T Changes, Nonspecific Changes Rate: 66 O2 Sat by Pulse Oximetry: 89 (RA) Pulse Ox Interpretation: Normal - Radiology X-Ray: Viewed By Me X-Ray Interpretation: No Acute Disease - Progress Re-evaluation Time: 14:00 Condition: Re-examined, Unchanged Medical Decision Making Medical Decision Makin:04 Impression: COPD exacerbation and chest pain Initial Plan: --Labs --CXR --Duoneb 3 ml INH --Duoneb 3 ml INH --NS IV --Solumedrol 125 mg IVP --Peak flow pre/post --Peak flow pre/post Scribe Attestation: Documented by Veda Weller, acting as a scribe for Estephania Arriola MD Provider Scribe Attestation: All medical record entries made by the Scribe were at my direction and personally dictated by me. I have reviewed the chart and agree that the record accurately reflects my personal performance of the history, physical exam, medical decision making, and the department course for this patient. I have also personally directed, reviewed, and agree with the discharge instructions and disposition. 2.00p - patient continues to wheeze and demonstrate markedly prolonged expiratory phase. Will admit to observation. 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
[2017-11-08 13:33] LABS: BASO # 0.1 K/uL (0.0-0.2); BASO % 0.6 % (0.0-2.0); EOS # 0.3 K/uL (0.0-0.7); EOS % 2.1 % (0.0-4.0); HEMOGLOBIN 14.3 g/dL (12.0-18.0); LYMPH # 1.1 K/uL (1.0-4.3); LYMPH % 8.2 % (20.0-40.0); MEAN CELL VOLUME 92.1 fl (80.0-94.0); MEAN CORPUSCULAR HEMOGLOBIN 31.1 pg (27.0-31.0); MEAN CORPUSCULAR HGB CONC 33.7 g/dL (33.0-37.0); MEAN PLATELET VOLUME 7.5 fl (7.2-11.7); MONO # 0.6 K/uL (0.0-0.8); MONO % 4.9 % (0.0-10.0); NEUT % 84.2 % (50.0-75.0); NRBC % 0.1 % (0.0-0.0); PLATELET COUNT 400 K/uL (130-400); RBC 4.61 Mil/uL (4.40-5.90); RED CELL DISTRIBUTION WIDTH 13.8 % (11.5-14.5); WHITE BLOOD COUNT 13.1 K/uL (4.8-10.8)
[2017-11-08] MEDS ORDERED: Albuterol-Ipratrop 3 mg / 0.5 (3 ml) UD ONE (13:33)
[2017-11-08 13:45] LABS: ALB/GLOB RATIO 1.3 (1.0-2.1); ALBUMIN 3.8 g/dL (3.5-5.0); ALT/SGPT 24 U/L (21-72); AST/SGOT 17 U/L (17-59); BLOOD UREA NITROGEN 15 mg/dl (9-20); GFR NON-AFRICAN AMERICAN > 60
[2017-11-08 13:56] LABS: VENOUS BLOOD GAS BASE EXCESS -6.1 mmol/L (0.0-2.0); VENOUS BLOOD GAS PCO2 109 mmHg (40-60); VENOUS BLOOD GAS PO2 50 mm/Hg (30-55); VENOUS BLOOD PH 7.02 (7.32-7.43)
[2017-11-08 14:10] LABS: VENOUS BLOOD GAS BASE EXCESS 7.3 mmol/L (0.0-2.0); VENOUS BLOOD GAS PCO2 71 mmHg (40-60); VENOUS BLOOD GAS PO2 33 mm/Hg (30-55); VENOUS BLOOD PH 7.32 (7.32-7.43)
[2017-11-08] MEDS: Sodium Chloride 0.9% 1,000 ML IV SCH ×2 (14:51→20:43)
--- NOTE | 2017-11-08 14:56 | CP.PCM.HP ---
<VietKamranJoselin randolph - Last Filed: 11/08/17 17:42> History of Present Illness - History of Present Illness History of Present Illness: 67-year-old male patient with PMH of [place], COPD, and extensive smoking history ( 50 pack years) presents to ED c/o SOB, cough and sputum production that started yesterday (11/07). Today he ate breakfast and immediately felt worse, proceeded to vomit his stomach contents (food particles) which alleviated his symptoms. He also reports constant chest tightness and mild chest pain that radiates to the back with cough. He reports 1 subjective fever overnight. Patient is homeless and therefore has not been on any maintenance medications. He also complains of dysuria and increased urinary frequency for one month but denies hematuria. Otherwise patient denies palpitations, abdominal pain, and headaches. Prior records reviewed. Patient was discharged from hospital on 2017 after being admitted for same complaint. PMD: none PMH: [place] 2004, COPD. FMH: TB (father) denies family h/o CVD, cancer. Meds: motced REILLYDA PSH: [facility]. SH: smoker 1ppd x 50 years, denies alcohol, recreational drugs. Homeless, living in prison by periods. ROS: all 12 systems reviewed and negative except as mentioned in HPI Present on Admission - Present on Admission Any Indicators Present on Admission: No History of DVT/PE: No History of Uncontrolled Diabetes: No Urinary Catheter: No Decubitus Ulcer Present: No Past Patient History - Past Medical History & Family History Past Medical History?: Yes - Past Social History Smoking Status: Heavy Smoker > 10 Cigarettes Daily - CARDIAC Hx Cardiac Disorders: No - PULMONARY Hx Respiratory Disorders: Yes (asthma/copd) - NEUROLOGICAL Hx Neurological Disorder: No - HEENT Hx HEENT Problems: No - RENAL Hx Chronic Kidney Disease: No - ENDOCRINE/METABOLIC Hx Endocrine Disorders: No - HEMATOLOGICAL/ONCOLOGICAL Hx Blood Disorders: No - INTEGUMENTARY Hx Dermatological Problems: No - MUSCULOSKELETAL/RHEUMATOLOGICAL Hx Musculoskeletal Disorders: No - GASTROINTESTINAL Hx Gastrointestinal Disorders: No - GENITOURINARY/GYNECOLOGICAL Hx Genitourinary Disorders: No - PSYCHIATRIC Hx Psychophysiologic Disorder: No - SURGICAL HISTORY Hx Surgeries: Yes Hx Herniorrhaphy: Yes - ANESTHESIA Hx Anesthesia: Yes Hx Anesthesia Reactions: No Hx Malignant Hyperthermia: No Meds Allergies/Adverse Reactions: Allergies Allergy/AdvReac Type Severity Reaction Status Date / Time No Known Allergies Allergy Verified 11/08/17 12:59 Physical Exam - Head Exam Head Exam: ATRAUMATIC, NORMAL INSPECTION, NORMOCEPHALIC - Eye Exam Eye Exam: Normal appearance - ENT Exam ENT Exam: Mucous Membranes Moist - Neck Exam Neck exam: Positive for: Normal Inspection - Respiratory Exam Respiratory Exam: Prolonged Expiratory Phase, Wheezes, Respiratory Distress ( mild) - Cardiovascular Exam Cardiovascular Exam: REGULAR RHYTHM - GI/Abdominal Exam GI & Abdominal Exam: Normal Bowel Sounds - Extremities Exam Extremities exam: Negative for: pedal edema Additional comments: numerous bilateral lower extremity varicosities - Skin Skin Exam: Normal Color, Warm Results - Vital Signs Recent Vital Signs: Last Vital Signs Temp 97.7 F 11/08/17 14:33 Pulse 74 11/08/17 14:33 Resp 22 11/08/17 14:33 BP 144/85 11/08/17 14:33 Pulse Ox 95 11/08/17 14:15 - Labs Result Diagrams: 11/08/17 13:23 11/08/17 13:23 Labs: Laboratory Results - last 24 hr 11/08/17 11/08/17 11/08/17 13:20 13:23 13:23 WBC 13.1 H RBC 4.61 Hgb 14.3 Hct 42.4 MCV 92.1 MCH 31.1 H MCHC 33.7 RDW 13.8 Plt Count 400 D MPV 7.5 Neut % (Auto) 84.2 H Lymph % (Auto) 8.2 L [place] % (Auto) 4.9 Eos % (Auto) 2.1 Baso % (Auto) 0.6 Neut # (Auto) 11.0 H Lymph # (Auto) 1.1 [place] # (Auto) 0.6 Eos # (Auto) 0.3 Baso # (Auto) 0.1 pO2 50 VBG pH 7.02 L* VBG pCO2 109 H* VBG HCO3 19.5 VBG Total CO2 31.4 H VBG O2 Sat (Calc) 81.0 H VBG Base Excess -6.1 L VBG Potassium Sodium 109.0 L* 136 Chloride 92.0 L 98 Glucose 144 H Lactate 1.1 FiO2 21.0 Blood Gas Comments Vbg Crit Value Called To Aleks dale r.n. Crit Value Called By Jenna Crit Value Read Back Y Blood Gas Notified Time 1356 Potassium 4.3 Carbon Dioxide 30 Anion Gap 12 BUN 15 Creatinine 0.6 L Est GFR ( Amer) > 60 Est GFR (Non-Af Amer) > 60 Random Glucose 142 H Calcium 9.0 Total Bilirubin 0.3 AST 17 ALT 24 Alkaline Phosphatase 73 Total Protein 6.7 Albumin 3.8 Globulin 2.9 Albumin/Globulin Ratio 1.3 Venous Blood Potassium 11/08/17 14:07 WBC RBC Hgb Hct MCV MCH MCHC RDW Plt Count MPV Neut % (Auto) Lymph % (Auto) [place] % (Auto) Eos % (Auto) Baso % (Auto) Neut # (Auto) Lymph # (Auto) [place] # (Auto) Eos # (Auto) Baso # (Auto) pO2 33 VBG pH 7.32 VBG pCO2 71 H* VBG HCO3 29.5 VBG Total CO2 38.8 H VBG O2 Sat (Calc) 68.3 H VBG Base Excess 7.3 H VBG Potassium 4.1 Sodium 134.0 Chloride 98.0 Glucose 137 H Lactate 0.9 FiO2 21.0 Blood Gas Comments Vbg Crit Value Called To Aleks dale r.n. Crit Value Called By Jenna Crit Value Read Back Y Blood Gas Notified Time 1410 Potassium Carbon Dioxide Anion Gap BUN Creatinine Est GFR ( Amer) Est GFR (Non-Af Amer) Random Glucose Calcium Total Bilirubin AST ALT Alkaline Phosphatase Total Protein Albumin Globulin Albumin/Globulin Ratio Venous Blood Potassium 4.1 Assessment & Plan - Assessment and Plan (Free Text) Assessment: 67-year-old male patient with PMH of [place], COPD, and extensive smoking history presents to ED for 1 day history of SOB, cough, sputum production, and chest pain. Also complains of dysuria and increased frequency for one month. 1. COPD Exacerbation -No leukocytosis -O2 NC 2L titration to maintain SPO2 > 90% -Follow O2 Sat -Hydration: IVF -Solumedrol IV 40mg Q8 -DuoNeb Q4 scheduled -Levoquin 750mg IV daily -Advair 250/50 -CXR in ED shows no active disease -Follow up CBC and BMP am -Follow up sputum cx -Follow up blood cx 2. Chest pain -Rule out ACS, likely secondary to respiratory symptoms -Trend Troponin I Q6 x3 -EKG in ER: normal sinus, no ST/T wave changes -Repeat EKG 9/3 am 3. Dysuria -Follow up UA 4. DVT Prophylaxis -Levonox 40mg subQ <Amador Vailnino D - Last Filed: 11/09/17 09:16> Results - Vital Signs Recent Vital Signs: Last Vital Signs Temp 97.5 F L 11/09/17 08:23 Pulse 75 11/09/17 09:01 Resp 20 11/09/17 08:23 BP 115/68 11/09/17 09:01 Pulse Ox 97 11/09/17 08:23 - Labs Result Diagrams: 11/09/17 04:35 11/09/17 04:35 Labs: Laboratory Results - last 24 hr 11/08/17 11/08/17 11/08/17 13:20 13:23 13:23 WBC 13.1 H RBC 4.61 Hgb 14.3 Hct 42.4 MCV 92.1 MCH 31.1 H MCHC 33.7 RDW 13.8 Plt Count 400 D MPV 7.5 Neut % (Auto) 84.2 H Lymph % (Auto) 8.2 L [place] % (Auto) 4.9 Eos % (Auto) 2.1 Baso % (Auto) 0.6 Neut # (Auto) 11.0 H Lymph # (Auto) 1.1 [place] # (Auto) 0.6 Eos # (Auto) 0.3 Baso # (Auto) 0.1 Neutrophils % (Manual) 84 H Band Neutrophils % 2 Lymphocytes % (Manual) 6 L Monocytes % (Manual) 4 Eosinophils % (Manual) 3 Basophils % (Manual) 1 Platelet Estimate Normal RBC Morphology Normal pO2 50 VBG pH 7.02 L* VBG pCO2 109 H* VBG HCO3 19.5 VBG Total CO2 31.4 H VBG O2 Sat (Calc) 81.0 H VBG Base Excess -6.1 L VBG Potassium Sodium 109.0 L* 136 Chloride 92.0 L 98 Glucose 144 H Lactate 1.1 FiO2 21.0 Blood Gas Comments Vbg Crit Value Called To Aleks dale r.n. Crit Value Called By Jenna Crit Value Read Back Y Blood Gas Notified Time 1356 Potassium 4.3 Carbon Dioxide 30 Anion Gap 12 BUN 15 Creatinine 0.6 L Est GFR ( Amer) > 60 Est GFR (Non-Af Amer) > 60 Random Glucose 142 H Calcium 9.0 Total Bilirubin 0.3 AST 17 ALT 24 Alkaline Phosphatase 73 Troponin I Total Protein 6.7 Albumin 3.8 Globulin 2.9 Albumin/Globulin Ratio 1.3 Triglycerides Cholesterol LDL Cholesterol Direct HDL Cholesterol Venous Blood Potassium Urine Color Urine Clarity Urine pH Ur Specific Atkins Urine Protein Urine Glucose (UA) Urine Ketones Urine Blood Urine Nitrate Urine Bilirubin Urine Urobilinogen Ur Leukocyte Esterase Urine RBC (Auto) Urine Microscopic WBC Amorphous Sediment Urine Bacteria 11/08/17 11/08/17 11/08/17 14:07 15:10 16:04 WBC RBC Hgb Hct MCV MCH MCHC RDW Plt Count MPV Neut % (Auto) Lymph % (Auto) [place] % (Auto) Eos % (Auto) Baso % (Auto) Neut # (Auto) Lymph # (Auto) [place] # (Auto) Eos # (Auto) Baso # (Auto) Neutrophils % (Manual) Band Neutrophils % Lymphocytes % (Manual) Monocytes % (Manual) Eosinophils % (Manual) Basophils % (Manual) Platelet Estimate RBC Morphology pO2 33 VBG pH 7.32 VBG pCO2 71 H* VBG HCO3 29.5 VBG Total CO2 38.8 H VBG O2 Sat (Calc) 68.3 H VBG Base Excess 7.3 H VBG Potassium 4.1 Sodium 134.0 Chloride 98.0 Glucose 137 H Lactate 0.9 FiO2 21.0 Blood Gas Comments Vbg Crit Value Called To Aleks dale r.n. Crit Value Called By Jenna Crit Value Read Back Y Blood Gas Notified Time 1410 Potassium Carbon Dioxide Anion Gap BUN Creatinine Est GFR ( Amer) Est GFR (Non-Af Amer) Random Glucose Calcium Total Bilirubin AST ALT Alkaline Phosphatase Troponin I 0.0280 Total Protein Albumin Globulin Albumin/Globulin Ratio Triglycerides Cholesterol LDL Cholesterol Direct HDL Cholesterol Venous Blood Potassium 4.1 Urine Color Yellow Urine Clarity Cloudy Urine pH 7.0 Ur Specific Atkins 1.018 Urine Protein Negative Urine Glucose (UA) Neg Urine Ketones Negative Urine Blood Negative Urine Nitrate Negative Urine Bilirubin Negative Urine Urobilinogen 0.2-1.0 Ur Leukocyte Esterase Neg Urine RBC (Auto) 2 Urine Microscopic WBC 1 Amorphous Sediment Rare H Urine Bacteria Rare 11/08/17 11/09/17 11/09/17 22:00 04:35 04:35 WBC RBC Hgb Hct MCV MCH MCHC RDW Plt Count MPV Neut % (Auto) Lymph % (Auto) [place] % (Auto) Eos % (Auto) Baso % (Auto) Neut # (Auto) Lymph # (Auto) [place] # (Auto) Eos # (Auto) Baso # (Auto) Neutrophils % (Manual) Band Neutrophils % Lymphocytes % (Manual) Monocytes % (Manual) Eosinophils % (Manual) Basophils % (Manual) Platelet Estimate RBC Morphology pO2 VBG pH VBG pCO2 VBG HCO3 VBG Total CO2 VBG O2 Sat (Calc) VBG Base Excess VBG Potassium Sodium 139 Chloride 102 Glucose Lactate FiO2 Blood Gas Comments Crit Value Called To Crit Value Called By Crit Value Read Back Blood Gas Notified Time Potassium 4.3 Carbon Dioxide 30 Anion Gap 11 BUN 16 Creatinine 0.6 L Est GFR ( Amer) > 60 Est GFR (Non-Af Amer) > 60 Random Glucose 121 H Calcium 8.9 Total Bilirubin AST ALT Alkaline Phosphatase Troponin I 0.6850 H* 0.9850 H* Total Protein Albumin Globulin Albumin/Globulin Ratio Triglycerides 61 Cholesterol 130 LDL Cholesterol Direct 91 HDL Cholesterol 24 L Venous Blood Potassium Urine Color Urine Clarity Urine pH Ur Specific Atkins Urine Protein Urine Glucose (UA) Urine Ketones Urine Blood Urine Nitrate Urine Bilirubin Urine Urobilinogen Ur Leukocyte Esterase Urine RBC (Auto) Urine Microscopic WBC Amorphous Sediment Urine Bacteria 11/09/17 04:35 WBC 7.7 RBC 4.75 Hgb 14.5 Hct 43.9 MCV 92.4 MCH 30.6 MCHC 33.1 RDW 13.3 Plt Count 397 MPV 7.8 Neut % (Auto) 79.5 H Lymph % (Auto) 12.5 L [place] % (Auto) 7.7 Eos % (Auto) 0.0 Baso % (Auto) 0.3 Neut # (Auto) 6.1 Lymph # (Auto) 1.0 [place] # (Auto) 0.6 Eos # (Auto) 0.0 Baso # (Auto) 0.0 Neutrophils % (Manual) Band Neutrophils % Lymphocytes % (Manual) Monocytes % (Manual) Eosinophils % (Manual) Basophils % (Manual) Platelet Estimate RBC Morphology pO2 VBG pH VBG pCO2 VBG HCO3 VBG Total CO2 VBG O2 Sat (Calc) VBG Base Excess VBG Potassium Sodium Chloride Glucose Lactate FiO2 Blood Gas Comments Crit Value Called To Crit Value Called By Crit Value Read Back Blood Gas Notified Time Potassium Carbon Dioxide Anion Gap BUN Creatinine Est GFR ( Amer) Est GFR (Non-Af Amer) Random Glucose Calcium Total Bilirubin AST ALT Alkaline Phosphatase Troponin I Total Protein Albumin Globulin Albumin/Globulin Ratio Triglycerides Cholesterol LDL Cholesterol Direct HDL Cholesterol Venous Blood Potassium Urine Color Urine Clarity Urine pH Ur Specific Atkins Urine Protein Urine Glucose (UA) Urine Ketones Urine Blood Urine Nitrate Urine Bilirubin Urine Urobilinogen Ur Leukocyte Esterase Urine RBC (Auto) Urine Microscopic WBC Amorphous Sediment Urine Bacteria Attending/Attestation - Attestation I have personally seen and examined this patient.: Yes I have fully participated in the care of the patient.: Yes I have reviewed all pertinent clinical information: Yes
[2017-11-08] MEDS ORDERED: Sodium Chloride 3% for Inhalation 4 ML VIAL.NEB IH PRN (14:59)
[2017-11-08] MEDS ORDERED: levoFLOXacin 750 mg in D5W 750 MG/150 ML BAG IVPB ONE (15:05)
[2017-11-08] MEDS: levoFLOXacin 750 mg in D5W 750 MG/150 ML BAG IVPB SCH (15:08)
[2017-11-08] MEDS ORDERED: Albuterol 0.083% Inhal Sol (2.5 mg/3 mL) UD INH PRN (15:13)
[2017-11-08 15:19] LABS: BANDS 2 % (0-2); BASOPHIL 1 % (0-2); EOSINOPHIL 3 % (0-7); LYMPHOCYTE 6 % (20-50); MONOCYTE 4 % (0-10); NEUTROPHIL 84 % (42-75); PLATELET ESTIMATE NORMAL (NORMAL); TOTAL CELLS COUNTED 100
--- NOTE | 2017-11-08 16:10 | RAD ---
Date of service: 11/08/2017 PROCEDURE: CHEST RADIOGRAPH, 1 VIEW HISTORY: sharp cp; wheezing COMPARISON: None available. FINDINGS: LUNGS: Clear. PLEURA: No pneumothorax or pleural fluid seen. CARDIOVASCULAR: Normal. OSSEOUS STRUCTURES: No significant abnormalities. VISUALIZED UPPER ABDOMEN: Normal. OTHER FINDINGS: None. IMPRESSION: No active disease.
[2017-11-08 16:19] LABS: URINE AMORPHOUS SEDIMENT RARE /ul (<OCC); URINE BACTERIA RARE (<OCC); URINE BILIRUBIN NEGATIVE (NEGATIVE); URINE BLOOD NEGATIVE (NEGATIVE); URINE CLARITY CLOUDY (Clear); URINE COLOR YELLOW (YELLOW); URINE GLUCOSE (UA) NEG (Normal); URINE LEUKOCYTE ESTERASE NEG Leu/uL (Negative); URINE PROTEIN NEGATIVE (NEGATIVE); URINE UROBILINOGEN 0.2-1.0 mg/dL (0.2-1.0)
[2017-11-08] MEDS: Albuterol-Ipratrop 3 mg / 0.5 (3 ml) UD INH SCH ×3 (16:55→23:00)
[2017-11-08] MEDS: Fluticasone-Salmeterol 250-50mcg Diskus IH SCH (20:39)
[2017-11-08] MEDS: Enoxaparin 60 mg Syringe SC SCH (23:33)
[2017-11-09] MEDS: Sodium Chloride 0.9% 1,000 ML IV SCH ×3 (01:00→21:11)
[2017-11-09] MEDS: Albuterol-Ipratrop 3 mg / 0.5 (3 ml) UD INH SCH ×6 (04:28→23:17)
[2017-11-09 05:44] LABS: BASO % 0.3 % (0.0-2.0); HEMOGLOBIN 14.5 g/dL (12.0-18.0); LYMPH % 12.5 % (20.0-40.0); MEAN CELL VOLUME 92.4 fl (80.0-94.0); MEAN CORPUSCULAR HEMOGLOBIN 30.6 pg (27.0-31.0); MEAN CORPUSCULAR HGB CONC 33.1 g/dL (33.0-37.0); MEAN PLATELET VOLUME 7.8 fl (7.2-11.7); MONO # 0.6 K/uL (0.0-0.8); MONO % 7.7 % (0.0-10.0); NEUT # 6.1 K/uL (1.8-7.0); NEUT % 79.5 % (50.0-75.0); RBC 4.75 Mil/uL (4.40-5.90); RED CELL DISTRIBUTION WIDTH 13.3 % (11.5-14.5); WHITE BLOOD COUNT 7.7 K/uL (4.8-10.8)
[2017-11-09 05:55] LABS: TROPONIN I 0.985 ng/mL (0.00-0.120)
[2017-11-09 06:12] LABS: BLOOD UREA NITROGEN 16 mg/dl (9-20); CALCIUM 8.9 mg/dL (8.4-10.2); GFR NON-AFRICAN AMERICAN > 60
--- NOTE | 2017-11-09 08:04 | CP.PCM.PN ---
<Joselin Marsh - Last Filed: 11/09/17 13:07> Subjective - Date & Time of Evaluation Date of Evaluation: 11/09/17 Time of Evaluation: 07:30 - Subjective Subjective: Patient seen bedside sitting up comfortably eating breakfast. He reports an improvement in his breathing but still complains of sputum and chest pain (mid- sternal radiating to back) occurring with cough. No acute events overnight. He denies dizziness, nausea, vomiting, and fever. Objective - Vital Signs/Intake and Output Vital Signs (last 24 hours): Temp Pulse Resp BP Pulse Ox 97.4 F L 63 16 128/68 94 L 11/09/17 05:00 11/09/17 05:00 11/09/17 05:00 11/09/17 05:00 11/09/17 05:00 - Medications Medications: Current Medications Albuterol Sulfate (Albuterol 0.083% Inhal Love (2.5 Mg/3 Ml) Ud) 2.5 mg INH RQ4 PRN PRN Reason: Shortness of Breath Albuterol/Ipratropium (Duoneb 3 Mg/0.5 Mg (3 Ml) Ud) 3 ml INH RQ4 [facility] Last Admin: 11/09/17 07:32 Dose: 3 ml Atorvastatin Calcium (Lipitor) 20 mg PO HS [facility] Last Admin: 11/08/17 23:32 Dose: 20 mg Carvedilol (Coreg) 12.5 mg PO Q12 [facility] Clopidogrel Bisulfate (Plavix) 75 mg PO DAILY [facility] Enoxaparin Sodium (Lovenox) 60 mg SC Q12 [facility] PRN Reason: Protocol Last Admin: 11/08/17 23:33 Dose: 60 mg Sodium Chloride (Sodium Chloride 0.9%) 1,000 mls @ 100 mls/hr IV .Q10H [facility] Last Admin: 11/09/17 01:00 Dose: Not Given Levofloxacin/Dextrose (Levaquin 750mg) 750 mg in 150 mls @ 100 mls/hr IVPB DAILY [facility] PRN Reason: Protocol Last Admin: 11/08/17 15:08 Dose: 100 mls/hr Methylprednisolone (Solu-Medrol) 40 mg IVP Q8 [facility] Fluticasone/Salmeterol (Advair Diskus 250/50) 1 puff IH Q12 [facility] Last Admin: 11/08/17 20:39 Dose: 1 puff - Labs Labs: 11/09/17 04:35 11/09/17 04:35 - Constitutional Appears: Non-toxic - Eye Exam Eye Exam: Normal appearance - ENT Exam ENT Exam: Mucous Membranes Moist - Neck Exam Neck Exam: Full ROM - Respiratory Exam Respiratory Exam: Prolonged Expiratory Phase, Wheezes Additional comments: improved from yesterday (11/08) - Cardiovascular Exam Cardiovascular Exam: REGULAR RHYTHM - GI/Abdominal Exam GI & Abdominal Exam: Soft, Normal Bowel Sounds - Extremities Exam Extremities Exam: absent: Pedal Edema - Psychiatric Exam Psychiatric exam: Normal Affect, Normal Mood - Skin Skin Exam: Normal Color, Warm Assessment and Plan - Assessment and Plan (Free Text) Assessment: 67-year-old male patient with PMH of [place], COPD, and extensive smoking history presents to ED for 1 day history of SOB, cough, sputum production, and chest pain. Also complains of dysuria and increased frequency for one month. 1. COPD Exacerbation -WBC trending down: 7.7 (11/08 13.2) -O2 NC 2L titration to maintain SPO2 > 90% -Follow O2 Sat -Hydration: IVF -Solumedrol IV 40mg Q8 -DuoNeb Q4 scheduled -Levoquin 750mg IV daily -Advair 250/50 -CXR in ED: no active disease -Sputum cx: many G+ bacilli, few G+ cocci in chains, rare polymorphonuclear WBCs -Follow up blood cx 2. Chest pain -Rule out ACS, likely secondary to respiratory symptoms -Troponin I Q6 x3 (11/08 7pm 0.0280; 11/08 11pm 0.6850; 11/09 7am 0.9850) -Continue to trend troponin -EKG in ER: normal sinus, no ST/T wave changes -Repeat EKG 11/09 am -Cardiology (Dr. Ling): Chest pain appears to be pleuritic in nature; Troponins elevated probably secondary to exac COPD/debilitated medical condition -Follow-up echo 3. Dysuria -UA: within normal limits 4. DVT Prophylaxis -Levonox 40mg subQ <Vail,Chon D - Last Filed: 11/09/17 16:36> Objective - Vital Signs/Intake and Output Vital Signs (last 24 hours): Temp Pulse Resp BP Pulse Ox 97.2 F L 67 20 134/70 99 11/09/17 13:05 11/09/17 13:05 11/09/17 13:05 11/09/17 13:05 11/09/17 13:05 - Medications Medications: Current Medications Albuterol Sulfate (Albuterol 0.083% Inhal Love (2.5 Mg/3 Ml) Ud) 2.5 mg INH RQ4 PRN PRN Reason: Shortness of Breath Albuterol/Ipratropium (Duoneb 3 Mg/0.5 Mg (3 Ml) Ud) 3 ml INH RQ4 [facility] Last Admin: 11/09/17 15:09 Dose: 3 ml Atorvastatin Calcium (Lipitor) 20 mg PO HS [facility] Last Admin: 11/08/17 23:32 Dose: 20 mg Carvedilol (Coreg) 12.5 mg PO Q12 [facility] Last Admin: 11/09/17 09:01 Dose: 12.5 mg Clopidogrel Bisulfate (Plavix) 75 mg PO DAILY [facility] Last Admin: 11/09/17 09:02 Dose: 75 mg Enoxaparin Sodium (Lovenox) 60 mg SC Q12 [facility] PRN Reason: Protocol Last Admin: 11/09/17 09:00 Dose: 60 mg Sodium Chloride (Sodium Chloride 0.9%) 1,000 mls @ 100 mls/hr IV .Q10H [facility] Last Admin: 11/09/17 11:12 Dose: 100 mls/hr Levofloxacin/Dextrose (Levaquin 750mg) 750 mg in 150 mls @ 100 mls/hr IVPB DAILY [facility] PRN Reason: Protocol Last Admin: 11/09/17 11:11 Dose: 100 mls/hr Methylprednisolone (Solu-Medrol) 40 mg IVP Q8 [facility] Last Admin: 11/09/17 16:15 Dose: 40 mg Fluticasone/Salmeterol (Advair Diskus 250/50) 1 puff IH Q12 [facility] Last Admin: 11/09/17 09:00 Dose: 1 puff - Labs Labs: 11/09/17 04:35 11/09/17 04:35
[2017-11-09] MEDS ORDERED: Enoxaparin 40 mg Syringe SC SCH (09:00)
[2017-11-09] MEDS ORDERED: methylPREDNISolone 40 MG in Sodium Chloride 0.9% 50 ML IVPB SCH (09:00)
[2017-11-09] MEDS: Fluticasone-Salmeterol 250-50mcg Diskus IH SCH ×2 (09:00→21:05)
[2017-11-09] MEDS: Enoxaparin 60 mg Syringe SC SCH ×2 (09:00→21:05)
[2017-11-09] MEDS: MethylPREDNISolone 40 mg Vial IVP SCH ×2 (09:02→16:15)
--- NOTE | 2017-11-09 09:39 | CP.PCM.CON ---
History of Present Illness - History of Present Illness History of Present Illness: 67-year-old male patient with PMH of [place], COPD, and extensive smoking history ( 50 pack years) presents to ED c/o SOB, cough and sputum production that started yesterday (11/07). Today he ate breakfast and immediately felt worse, proceeded to vomit his stomach contents (food particles) which alleviated his symptoms. He also reports constant chest tightness and mild chest pain that radiates to the back with cough. He reports 1 subjective fever overnight. Patient is homeless and therefore has not been on any maintenance medications. He also complains of dysuria and increased urinary frequency for one month but denies hematuria. Otherwise patient denies palpitations, abdominal pain, and headaches. Prior records reviewed. Patient was discharged from hospital on 2017 after being admitted for same complaint. C/O retrosternal chest pain sharp stabbing worse with cough and deep inspiration TRoponin: elevated EKG:Normal Past Patient History - Past Medical History & Family History Past Medical History?: Yes - Past Social History Smoking Status: Heavy Smoker > 10 Cigarettes Daily - CARDIAC Hx Cardiac Disorders: No - PULMONARY Hx Respiratory Disorders: Yes (asthma/copd) - NEUROLOGICAL Hx Neurological Disorder: No - HEENT Hx HEENT Problems: No - RENAL Hx Chronic Kidney Disease: No - ENDOCRINE/METABOLIC Hx Endocrine Disorders: No - HEMATOLOGICAL/ONCOLOGICAL Hx Blood Disorders: No - INTEGUMENTARY Hx Dermatological Problems: No - MUSCULOSKELETAL/RHEUMATOLOGICAL Hx Musculoskeletal Disorders: No - GASTROINTESTINAL Hx Gastrointestinal Disorders: No - GENITOURINARY/GYNECOLOGICAL Hx Genitourinary Disorders: No - PSYCHIATRIC Hx Psychophysiologic Disorder: No - SURGICAL HISTORY Hx Surgeries: Yes Hx Herniorrhaphy: Yes - ANESTHESIA Hx Anesthesia: Yes Hx Anesthesia Reactions: No Hx Malignant Hyperthermia: No Meds Allergies/Adverse Reactions: Allergies Allergy/AdvReac Type Severity Reaction Status Date / Time No Known Allergies Allergy Verified 11/08/17 12:59 - Medications Medications: Current Medications Albuterol Sulfate (Albuterol 0.083% Inhal Love (2.5 Mg/3 Ml) Ud) 2.5 mg INH RQ4 PRN PRN Reason: Shortness of Breath Albuterol/Ipratropium (Duoneb 3 Mg/0.5 Mg (3 Ml) Ud) 3 ml INH RQ4 [facility] Last Admin: 11/09/17 07:32 Dose: 3 ml Atorvastatin Calcium (Lipitor) 20 mg PO HS [facility] Last Admin: 11/08/17 23:32 Dose: 20 mg Carvedilol (Coreg) 12.5 mg PO Q12 [facility] Last Admin: 11/09/17 09:01 Dose: 12.5 mg Clopidogrel Bisulfate (Plavix) 75 mg PO DAILY [facility] Last Admin: 11/09/17 09:02 Dose: 75 mg Enoxaparin Sodium (Lovenox) 60 mg SC Q12 [facility] PRN Reason: Protocol Last Admin: 11/09/17 09:00 Dose: 60 mg Sodium Chloride (Sodium Chloride 0.9%) 1,000 mls @ 100 mls/hr IV .Q10H [facility] Last Admin: 11/09/17 01:00 Dose: Not Given Levofloxacin/Dextrose (Levaquin 750mg) 750 mg in 150 mls @ 100 mls/hr IVPB DAILY [facility] PRN Reason: Protocol Last Admin: 11/08/17 15:08 Dose: 100 mls/hr Methylprednisolone (Solu-Medrol) 40 mg IVP Q8 [facility] Last Admin: 11/09/17 09:02 Dose: 40 mg Fluticasone/Salmeterol (Advair Diskus 250/50) 1 puff IH Q12 [facility] Last Admin: 11/09/17 09:00 Dose: 1 puff Physical Exam - Constitutional Appears: Well, Unkempt - Head Exam Head Exam: NORMAL INSPECTION - Eye Exam Eye Exam: Normal appearance - ENT Exam ENT Exam: Normal Exam - Respiratory Exam Respiratory Exam: NORMAL BREATHING PATTERN - Cardiovascular Exam Cardiovascular Exam: REGULAR RHYTHM Results - Vital Signs Recent Vital Signs: Last Vital Signs Temp 97.5 F L 11/09/17 08:23 Pulse 75 11/09/17 09:01 Resp 20 11/09/17 08:23 BP 115/68 11/09/17 09:01 Pulse Ox 97 11/09/17 08:23 - Labs Result Diagrams: 11/09/17 04:35 11/09/17 04:35 Labs: Laboratory Results - last 24 hr 11/08/17 11/08/17 11/08/17 13:20 13:23 13:23 WBC 13.1 H RBC 4.61 Hgb 14.3 Hct 42.4 MCV 92.1 MCH 31.1 H MCHC 33.7 RDW 13.8 Plt Count 400 D MPV 7.5 Neut % (Auto) 84.2 H Lymph % (Auto) 8.2 L [place] % (Auto) 4.9 Eos % (Auto) 2.1 Baso % (Auto) 0.6 Neut # (Auto) 11.0 H Lymph # (Auto) 1.1 [place] # (Auto) 0.6 Eos # (Auto) 0.3 Baso # (Auto) 0.1 Neutrophils % (Manual) 84 H Band Neutrophils % 2 Lymphocytes % (Manual) 6 L Monocytes % (Manual) 4 Eosinophils % (Manual) 3 Basophils % (Manual) 1 Platelet Estimate Normal RBC Morphology Normal pO2 50 VBG pH 7.02 L* VBG pCO2 109 H* VBG HCO3 19.5 VBG Total CO2 31.4 H VBG O2 Sat (Calc) 81.0 H VBG Base Excess -6.1 L VBG Potassium Sodium 109.0 L* 136 Chloride 92.0 L 98 Glucose 144 H Lactate 1.1 FiO2 21.0 Blood Gas Comments Vbg Crit Value Called To Aleks dale r.n. Crit Value Called By Jenna Crit Value Read Back Y Blood Gas Notified Time 1356 Potassium 4.3 Carbon Dioxide 30 Anion Gap 12 BUN 15 Creatinine 0.6 L Est GFR ( Amer) > 60 Est GFR (Non-Af Amer) > 60 Random Glucose 142 H Calcium 9.0 Total Bilirubin 0.3 AST 17 ALT 24 Alkaline Phosphatase 73 Troponin I Total Protein 6.7 Albumin 3.8 Globulin 2.9 Albumin/Globulin Ratio 1.3 Triglycerides Cholesterol LDL Cholesterol Direct HDL Cholesterol Venous Blood Potassium Urine Color Urine Clarity Urine pH Ur Specific [place] Urine Protein Urine Glucose (UA) Urine Ketones Urine Blood Urine Nitrate Urine Bilirubin Urine Urobilinogen Ur Leukocyte Esterase Urine RBC (Auto) Urine Microscopic WBC Amorphous Sediment Urine Bacteria 11/08/17 11/08/17 11/08/17 14:07 15:10 16:04 WBC RBC Hgb Hct MCV MCH MCHC RDW Plt Count MPV Neut % (Auto) Lymph % (Auto) [place] % (Auto) Eos % (Auto) Baso % (Auto) Neut # (Auto) Lymph # (Auto) [place] # (Auto) Eos # (Auto) Baso # (Auto) Neutrophils % (Manual) Band Neutrophils % Lymphocytes % (Manual) Monocytes % (Manual) Eosinophils % (Manual) Basophils % (Manual) Platelet Estimate RBC Morphology pO2 33 VBG pH 7.32 VBG pCO2 71 H* VBG HCO3 29.5 VBG Total CO2 38.8 H VBG O2 Sat (Calc) 68.3 H VBG Base Excess 7.3 H VBG Potassium 4.1 Sodium 134.0 Chloride 98.0 Glucose 137 H Lactate 0.9 FiO2 21.0 Blood Gas Comments Vbg Crit Value Called To Aleks dale r.n. Crit Value Called By Jenna Crit Value Read Back Y Blood Gas Notified Time 1410 Potassium Carbon Dioxide Anion Gap BUN Creatinine Est GFR ( Amer) Est GFR (Non-Af Amer) Random Glucose Calcium Total Bilirubin AST ALT Alkaline Phosphatase Troponin I 0.0280 Total Protein Albumin Globulin Albumin/Globulin Ratio Triglycerides Cholesterol LDL Cholesterol Direct HDL Cholesterol Venous Blood Potassium 4.1 Urine Color Yellow Urine Clarity Cloudy Urine pH 7.0 Ur Specific [place] 1.018 Urine Protein Negative Urine Glucose (UA) Neg Urine Ketones Negative Urine Blood Negative Urine Nitrate Negative Urine Bilirubin Negative Urine Urobilinogen 0.2-1.0 Ur Leukocyte Esterase Neg Urine RBC (Auto) 2 Urine Microscopic WBC 1 Amorphous Sediment Rare H Urine Bacteria Rare 11/08/17 11/09/17 11/09/17 22:00 04:35 04:35 WBC RBC Hgb Hct MCV MCH MCHC RDW Plt Count MPV Neut % (Auto) Lymph % (Auto) [place] % (Auto) Eos % (Auto) Baso % (Auto) Neut # (Auto) Lymph # (Auto) [place] # (Auto) Eos # (Auto) Baso # (Auto) Neutrophils % (Manual) Band Neutrophils % Lymphocytes % (Manual) Monocytes % (Manual) Eosinophils % (Manual) Basophils % (Manual) Platelet Estimate RBC Morphology pO2 VBG pH VBG pCO2 VBG HCO3 VBG Total CO2 VBG O2 Sat (Calc) VBG Base Excess VBG Potassium Sodium 139 Chloride 102 Glucose Lactate FiO2 Blood Gas Comments Crit Value Called To Crit Value Called By Crit Value Read Back Blood Gas Notified Time Potassium 4.3 Carbon Dioxide 30 Anion Gap 11 BUN 16 Creatinine 0.6 L Est GFR ( Amer) > 60 Est GFR (Non-Af Amer) > 60 Random Glucose 121 H Calcium 8.9 Total Bilirubin AST ALT Alkaline Phosphatase Troponin I 0.6850 H* 0.9850 H* Total Protein Albumin Globulin Albumin/Globulin Ratio Triglycerides 61 Cholesterol 130 LDL Cholesterol Direct 91 HDL Cholesterol 24 L Venous Blood Potassium Urine Color Urine Clarity Urine pH Ur Specific [place] Urine Protein Urine Glucose (UA) Urine Ketones Urine Blood Urine Nitrate Urine Bilirubin Urine Urobilinogen Ur Leukocyte Esterase Urine RBC (Auto) Urine Microscopic WBC Amorphous Sediment Urine Bacteria 11/09/17 04:35 WBC 7.7 RBC 4.75 Hgb 14.5 Hct 43.9 MCV 92.4 MCH 30.6 MCHC 33.1 RDW 13.3 Plt Count 397 MPV 7.8 Neut % (Auto) 79.5 H Lymph % (Auto) 12.5 L [place] % (Auto) 7.7 Eos % (Auto) 0.0 Baso % (Auto) 0.3 Neut # (Auto) 6.1 Lymph # (Auto) 1.0 [place] # (Auto) 0.6 Eos # (Auto) 0.0 Baso # (Auto) 0.0 Neutrophils % (Manual) Band Neutrophils % Lymphocytes % (Manual) Monocytes % (Manual) Eosinophils % (Manual) Basophils % (Manual) Platelet Estimate RBC Morphology pO2 VBG pH VBG pCO2 VBG HCO3 VBG Total CO2 VBG O2 Sat (Calc) VBG Base Excess VBG Potassium Sodium Chloride Glucose Lactate FiO2 Blood Gas Comments Crit Value Called To Crit Value Called By Crit Value Read Back Blood Gas Notified Time Potassium Carbon Dioxide Anion Gap BUN Creatinine Est GFR ( Amer) Est GFR (Non-Af Amer) Random Glucose Calcium Total Bilirubin AST ALT Alkaline Phosphatase Troponin I Total Protein Albumin Globulin Albumin/Globulin Ratio Triglycerides Cholesterol LDL Cholesterol Direct HDL Cholesterol Venous Blood Potassium Urine Color Urine Clarity Urine pH Ur Specific [place] Urine Protein Urine Glucose (UA) Urine Ketones Urine Blood Urine Nitrate Urine Bilirubin Urine Urobilinogen Ur Leukocyte Esterase Urine RBC (Auto) Urine Microscopic WBC Amorphous Sediment Urine Bacteria Assessment & Plan (1) Chest pain Assessment and Plan: Chest pain appears to be pleuritic in nature Troponins elevated probably secondary to exac COPD / debilitated medical condition Status: Acute (2) COPD with acute bronchitis Status: Acute - Date & Time Date: 11/09/17 Time: 10:00
--- NOTE | 2017-11-09 10:04 | CARD ---
APPROVED REPORT Date of service: 11/08/2017 EKG Measurement Heart [id number] <Conclusion> Normal sinus rhythm Normal ECG
[2017-11-09] MEDS: levoFLOXacin 750 mg in D5W 750 MG/150 ML BAG IVPB SCH (11:11)
[2017-11-10] MEDS: MethylPREDNISolone 40 mg Vial IVP SCH ×3 (00:50→16:00)
[2017-11-10] MEDS: Albuterol-Ipratrop 3 mg / 0.5 (3 ml) UD INH SCH ×5 (04:17→19:37)
[2017-11-10] MEDS: levoFLOXacin 750 mg in D5W 750 MG/150 ML BAG IVPB SCH (09:02)
[2017-11-10] MEDS: Enoxaparin 60 mg Syringe SC SCH ×2 (09:04→21:17)
[2017-11-10] MEDS: Fluticasone-Salmeterol 250-50mcg Diskus IH SCH ×2 (09:05→21:17)
[2017-11-10] MEDS: Sodium Chloride 0.9% 1,000 ML IV SCH ×2 (09:06→15:50)
--- NOTE | 2017-11-10 12:18 | CP.PCM.PN ---
<Joselin Marsh - Last Filed: 11/10/17 12:32> Subjective - Date & Time of Evaluation Date of Evaluation: 11/10/17 Time of Evaluation: 10:00 - Subjective Subjective: Patient seen bedside sitting up comfortably on room air eating breakfast. He reports an improvement from yesterday in his pleuritic chest pain but no improvement in cough or sputum production. No acute events overnight. He denies dizziness, nausea, vomiting, and fever. Objective - Vital Signs/Intake and Output Vital Signs (last 24 hours): Temp Pulse Resp BP Pulse Ox 97.5 F L 83 18 150/79 95 11/10/17 08:20 11/10/17 09:02 11/10/17 08:20 11/10/17 09:02 11/10/17 08:20 - Medications Medications: Current Medications Albuterol Sulfate (Albuterol 0.083% Inhal Love (2.5 Mg/3 Ml) Ud) 2.5 mg INH RQ4 PRN PRN Reason: Shortness of Breath Albuterol/Ipratropium (Duoneb 3 Mg/0.5 Mg (3 Ml) Ud) 3 ml INH RQ4 [facility] Last Admin: 11/10/17 11:30 Dose: 3 ml Atorvastatin Calcium (Lipitor) 20 mg PO HS [facility] Last Admin: 11/09/17 21:10 Dose: 20 mg Carvedilol (Coreg) 12.5 mg PO Q12 [facility] Last Admin: 11/10/17 09:02 Dose: 12.5 mg Clopidogrel Bisulfate (Plavix) 75 mg PO DAILY [facility] Last Admin: 11/10/17 09:04 Dose: 75 mg Enoxaparin Sodium (Lovenox) 60 mg SC Q12 [facility] PRN Reason: Protocol Last Admin: 11/10/17 09:04 Dose: 60 mg Sodium Chloride (Sodium Chloride 0.9%) 1,000 mls @ 100 mls/hr IV .Q10H [facility] Last Admin: 11/10/17 09:06 Dose: 100 mls/hr Levofloxacin/Dextrose (Levaquin 750mg) 750 mg in 150 mls @ 100 mls/hr IVPB DAILY [facility] PRN Reason: Protocol Last Admin: 11/10/17 09:02 Dose: 100 mls/hr Methylprednisolone (Solu-Medrol) 40 mg IVP Q8 [facility] Last Admin: 11/10/17 09:35 Dose: 40 mg Fluticasone/Salmeterol (Advair Diskus 250/50) 1 puff IH Q12 [facility] Last Admin: 11/10/17 09:05 Dose: 1 puff - Labs Labs: 11/09/17 04:35 11/09/17 04:35 - Constitutional Appears: Non-toxic - Head Exam Head Exam: ATRAUMATIC - Eye Exam Eye Exam: Normal appearance - ENT Exam ENT Exam: Mucous Membranes Moist - Neck Exam Neck Exam: Full ROM - Respiratory Exam Respiratory Exam: Prolonged Expiratory Phase, Wheezes Additional comments: cough with white sputum - Cardiovascular Exam Cardiovascular Exam: REGULAR RHYTHM - GI/Abdominal Exam GI & Abdominal Exam: Soft, Normal Bowel Sounds - Neurological Exam Neurological Exam: Alert, Awake, Oriented x3 - Psychiatric Exam Psychiatric exam: Normal Affect, Normal Mood - Skin Skin Exam: Intact, Normal Color, Warm Assessment and Plan - Assessment and Plan (Free Text) Assessment: 67-year-old male patient with PMH of [place], COPD, and extensive smoking history presents to ED for 1 day history of SOB, cough, sputum production, and chest pain. Also complains of dysuria and increased frequency for one month. 1. COPD Exacerbation -No leukocytosis WBC 7.7 (11/08 13.2) -O2 NC 2L titration to maintain SPO2 > 90% -Follow O2 Sat -Hydration: IVF -Solumedrol IV 40mg Q8 -DuoNeb Q4 scheduled -Levoquin 750mg IV daily -Advair 250/50 -CXR in ED: no active disease -Sputum cx: many G+ bacilli, few G+ cocci in chains, rare polymorphonuclear WBCs - normal oral maryan -Blood cx: no growth @ 24hrs -Patient still diffusely wheezing - possible dc tomorrow pending improvement 2. Chest pain -Rule out ACS, likely secondary to respiratory symptoms -Troponin I trend: 11/08 7pm 0.0280; 11/08 11pm 0.6850; 11/09 7am 0.9850; 11/09 4pm 0.6780; 11/10 12am 0.4820; 11/10 4am 0.3650 -Continue to trend troponin -EKG in ER: normal sinus, no ST/T wave changes -Cardiology (Dr. Ling): Chest pain appears to be pleuritic in nature; Troponins elevated probably secondary to exac COPD/debilitated medical condition 3. Dysuria -UA: within normal limits 4. DVT Prophylaxis -Levonox 40mg subQ <Nereyda Fischer - Last Filed: 11/10/17 15:37> Objective - Vital Signs/Intake and Output Vital Signs (last 24 hours): Temp Pulse Resp BP Pulse Ox 98 F 63 18 126/64 98 11/10/17 12:19 11/10/17 12:19 11/10/17 12:19 11/10/17 12:19 11/10/17 12:19 - Medications Medications: Current Medications Albuterol Sulfate (Albuterol 0.083% Inhal Love (2.5 Mg/3 Ml) Ud) 2.5 mg INH RQ4 PRN PRN Reason: Shortness of Breath Albuterol/Ipratropium (Duoneb 3 Mg/0.5 Mg (3 Ml) Ud) 3 ml INH RQ4 [facility] Last Admin: 11/10/17 15:20 Dose: 3 ml Atorvastatin Calcium (Lipitor) 20 mg PO HS [facility] Last Admin: 11/09/17 21:10 Dose: 20 mg Carvedilol (Coreg) 12.5 mg PO Q12 [facility] Last Admin: 11/10/17 09:02 Dose: 12.5 mg Clopidogrel Bisulfate (Plavix) 75 mg PO DAILY [facility] Last Admin: 11/10/17 09:04 Dose: 75 mg Enoxaparin Sodium (Lovenox) 60 mg SC Q12 [facility] PRN Reason: Protocol Last Admin: 11/10/17 09:04 Dose: 60 mg Sodium Chloride (Sodium Chloride 0.9%) 1,000 mls @ 100 mls/hr IV .Q10H [facility] Last Admin: 11/10/17 09:06 Dose: 100 mls/hr Levofloxacin/Dextrose (Levaquin 750mg) 750 mg in 150 mls @ 100 mls/hr IVPB DAILY [facility] PRN Reason: Protocol Last Admin: 11/10/17 09:02 Dose: 100 mls/hr Methylprednisolone (Solu-Medrol) 40 mg IVP Q8 [facility] Last Admin: 11/10/17 09:35 Dose: 40 mg Fluticasone/Salmeterol (Advair Diskus 250/50) 1 puff IH Q12 [facility] Last Admin: 11/10/17 09:05 Dose: 1 puff - Labs Labs: 11/09/17 04:35 11/09/17 04:35 Attending/Attestation - Attestation I have personally seen and examined this patient.: Yes I have fully participated in the care of the patient.: Yes I have reviewed all pertinent clinical information, including history, physical exam and plan: Yes Notes (Text): Pt still with SOB, cough, wheezing. Will keep pt in the hospital to continue IV Solumedrol and RTC Duoneb Rpt CXR ( PA/lateral) to r/o PNA , if neg prob Bronchitis - empirically on IV levaquin
--- NOTE | 2017-11-10 14:16 | CARD ---
APPROVED REPORT Date of service: 11/10/2017 EXAM: Two-dimensional and M-mode echocardiogram with Doppler and color Doppler. Other Information Quality : GoodRhythm : NSR INDICATION Non STEMI 2D DIMENSIONS IVSd0.88 (0.7-1.1cm)LVDd4.49 (3.9-5.9cm) LVOT Diameter2.24 (1.8-2.4cm)PWd0.92 (0.7-1.1cm) IVSs1.40 (0.8-1.2cm)LVDs3.11 (2.5-4.0cm) FS (%) 30.8 %PWs1.48 (0.8-1.2cm) M-Mode DIMENSIONS Left Atrium (MM)3.68 (2.5-4.0cm)IVSd0.91 (0.7-1.1cm) Aortic Root3.18 (2.2-3.7cm)LVDd5.62 (4.0-5.6cm) Aortic Cusp Exc.1.88 (1.5-2.0cm)PWd1.12 (0.7-1.1cm) IVSs1.47 cmFS (%) 42 % LVDs3.24 (2.0-3.8cm)PWs1.62 cm Aortic Valve AoV Peak Yhuhhyne201.8cm/sAoV VTI27.9cmAO Peak GR.8mmHg LVOT Peak Dhlruknh47.3cm/sLVOT VTI20.65cmAO Mean GR.4mmHg Mitral Valve MV E Sbptbdof07.6cm/sMV DECEL [id number] A Gdgcgspw90.6cm/s MV RZS87rkK/A ratio0.7MVA (PHT)3.30cm2 TDI Lateral E' Peak V11.49cm/sMedial E' Peak V9.04cm/sE/Lateral E'4.4 E/Medial E'5.6 Pulmonary Valve PV Peak Hqumgbim73.4cm/s LEFT VENTRICLE The left ventricle is normal size. There is normal left ventricular wall thickness. The left ventricular systolic function is normal. The estimated ejection fraction is 65% No regional wall motion abnormalities noted.. Transmitral Doppler flow pattern is Grade I-abnormal relaxation pattern. No left ventricle thrombus noted on this study. There is no ventricular septal defect visualized. There is no mass noted in the left ventricle. RIGHT VENTRICLE The right ventricle is normal size. There is normal right ventricular wall thickness. The right ventricular systolic function is normal. ATRIA The left atrium size is normal. The right atrium size is normal. The interatrial septum is intact with no evidence for an atrial septal defect. AORTIC VALVE The aortic valve is normal in structure. No aortic regurgitation is present. There is no aortic valvular stenosis. MITRAL VALVE The mitral valve is normal in structure. There is no mitral valve stenosis. There is trivial mitral valve regurgitation noted. TRICUSPID VALVE The tricuspid valve is normal in structure. There is no tricuspid valve regurgitation noted. PULMONIC VALVE The pulmonary valve is normal in structure. There is no pulmonic valvular regurgitation. GREAT VESSELS The aortic root is normal in size. The ascending aorta is normal in size. The pulmonary artery is normal. The IVC is normal in size and collapses >50% with inspiration. PERICARDIAL EFFUSION There is no pericardial effusion. <Conclusion> Normal LV systolic function with doppler hemodynamics consistent with abnormal relaxation Otherwise essentially ntransthoracic echocardiogram. The estimated ejection fraction is 65%
[2017-11-11] MEDS: Albuterol-Ipratrop 3 mg / 0.5 (3 ml) UD INH SCH ×6 (00:45→19:56)
[2017-11-11] MEDS: MethylPREDNISolone 40 mg Vial IVP SCH ×3 (01:02→16:30)
[2017-11-11] MEDS: Sodium Chloride 0.9% 1,000 ML IV SCH ×2 (02:08→03:18)
[2017-11-11] MEDS: levoFLOXacin 750 mg in D5W 750 MG/150 ML BAG IVPB SCH (09:23)
[2017-11-11] MEDS: Fluticasone-Salmeterol 250-50mcg Diskus IH SCH ×2 (09:24→21:16)
[2017-11-11] MEDS: Enoxaparin 60 mg Syringe SC SCH ×2 (09:24→21:17)
--- NOTE | 2017-11-11 11:41 | CP.PCM.PN ---
Addendum entered and electronically signed by Joselin Marsh MD 11/11/17 14: 51: CXR (11/11) - No active disease. No interval pathology noted. Original Note: <Joselin Marsh - Last Filed: 11/11/17 12:01> Subjective - Date & Time of Evaluation Date of Evaluation: 11/11/17 Time of Evaluation: 09:00 - Subjective Subjective: Patient seen bedside in no acute distress. He is slowly improving but continues to wheeze bilaterally with dyspnea on exertion. He reports improvement in pleuritic chest pain with cough but still complains of sputum production. He denies nausea, vomiting, chills, diarrhea, constipation, and dysuria. Objective - Vital Signs/Intake and Output Vital Signs (last 24 hours): Temp Pulse Resp BP Pulse Ox 97.4 F L 76 20 150/76 98 11/11/17 08:00 11/11/17 09:25 11/11/17 08:00 11/11/17 09:25 11/11/17 08:00 - Medications Medications: Current Medications Albuterol Sulfate (Albuterol 0.083% Inhal Love (2.5 Mg/3 Ml) Ud) 2.5 mg INH RQ4 PRN PRN Reason: Shortness of Breath Albuterol/Ipratropium (Duoneb 3 Mg/0.5 Mg (3 Ml) Ud) 3 ml INH RQ4 [facility] Last Admin: 11/11/17 11:18 Dose: Not Given Atorvastatin Calcium (Lipitor) 20 mg PO HS [facility] Last Admin: 11/10/17 21:18 Dose: 20 mg Carvedilol (Coreg) 12.5 mg PO Q12 [facility] Last Admin: 11/11/17 09:25 Dose: 12.5 mg Clopidogrel Bisulfate (Plavix) 75 mg PO DAILY [facility] Last Admin: 11/11/17 09:25 Dose: 75 mg Enoxaparin Sodium (Lovenox) 60 mg SC Q12 [facility] PRN Reason: Protocol Last Admin: 11/11/17 09:24 Dose: 60 mg Sodium Chloride (Sodium Chloride 0.9%) 1,000 mls @ 100 mls/hr IV .Q10H [facility] Last Admin: 11/11/17 03:18 Dose: 100 mls/hr Levofloxacin/Dextrose (Levaquin 750mg) 750 mg in 150 mls @ 100 mls/hr IVPB DAILY [facility] PRN Reason: Protocol Last Admin: 11/11/17 09:23 Dose: 100 mls/hr Methylprednisolone (Solu-Medrol) 40 mg IVP Q8 [facility] Last Admin: 11/11/17 09:25 Dose: 40 mg Fluticasone/Salmeterol (Advair Diskus 250/50) 1 puff IH Q12 [facility] Last Admin: 11/11/17 09:24 Dose: 1 puff - Labs Labs: 11/09/17 04:35 11/09/17 04:35 - Constitutional Appears: Non-toxic - Head Exam Head Exam: ATRAUMATIC - Eye Exam Eye Exam: Normal appearance - ENT Exam ENT Exam: Mucous Membranes Moist, Normal Exam - Neck Exam Neck Exam: Normal Inspection - Respiratory Exam Respiratory Exam: Prolonged Expiratory Phase, Wheezes (diffuse) Additional comments: cough with white sputum production - Cardiovascular Exam Cardiovascular Exam: REGULAR RHYTHM - GI/Abdominal Exam GI & Abdominal Exam: Soft. absent: Distended, Guarding, Tenderness - Extremities Exam Extremities Exam: Normal Inspection - Neurological Exam Neurological Exam: Alert, Awake, Normal Gait, Oriented x3 - Psychiatric Exam Psychiatric exam: Normal Affect, Normal Mood - Skin Skin Exam: Intact, Normal Color, Warm Assessment and Plan - Assessment and Plan (Free Text) Assessment: 67-year-old male patient with PMH of [place], COPD, and extensive smoking history presents to ED for 1 day history of SOB, cough, sputum production, and chest pain. Also complains of dysuria and increased frequency for one month. 1. COPD Exacerbation -No leukocytosis WBC 7.7 (11/08 13.2) -O2 NC 2L dc - 97% O2 Sat at room air -Hydration: IVF -Solumedrol IV 40mg Q8 -DuoNeb Q4 scheduled -Levoquin 750mg IV daily -Advair 250/50 -CXR in ED: no active disease -Sputum cx: many G+ bacilli, few G+ cocci in chains, rare polymorphonuclear WBCs - normal oral maryan -Blood cx: no growth @ 24hrs -Patient still diffusely wheezing -Follow up CXR 11/11 -O2 sat during ambulation tomorrow (11/12) 2. Chest pain -Secondary to respiratory symptoms -Troponin I trend: 11/08 7pm 0.0280; 11/08 11pm 0.6850; 11/09 7am 0.9850; 11/09 4pm 0.6780; 11/10 12am 0.4820; 11/10 4am 0.3650 -EKG in ER: normal sinus, no ST/T wave changes -Cardiology (Dr. Ling): Chest pain appears to be pleuritic in nature; Troponins elevated probably secondary to exac COPD/debilitated medical condition. -Verbal confirmation from Dr. Ling that patient is cleared for dc from cardiac 3. Dysuria -UA: within normal limits 4. DVT Prophylaxis -Levonox 40mg subQ <Edyta Means - Last Filed: 11/11/17 18:13> Objective - Vital Signs/Intake and Output Vital Signs (last 24 hours): Temp Pulse Resp BP Pulse Ox 97.5 F L 61 20 160/85 H 98 11/11/17 16:05 11/11/17 16:05 11/11/17 16:05 11/11/17 16:05 11/11/17 16:05 - Medications Medications: Current Medications Albuterol Sulfate (Albuterol 0.083% Inhal Love (2.5 Mg/3 Ml) Ud) 2.5 mg INH RQ4 PRN PRN Reason: Shortness of Breath Albuterol/Ipratropium (Duoneb 3 Mg/0.5 Mg (3 Ml) Ud) 3 ml INH RQ4 [facility] Last Admin: 11/11/17 16:01 Dose: 3 ml Atorvastatin Calcium (Lipitor) 20 mg PO HS [facility] Last Admin: 11/10/17 21:18 Dose: 20 mg Carvedilol (Coreg) 12.5 mg PO Q12 [facility] Last Admin: 11/11/17 09:25 Dose: 12.5 mg Clopidogrel Bisulfate (Plavix) 75 mg PO DAILY [facility] Last Admin: 11/11/17 09:25 Dose: 75 mg Enoxaparin Sodium (Lovenox) 60 mg SC Q12 [facility] PRN Reason: Protocol Last Admin: 11/11/17 09:24 Dose: 60 mg Sodium Chloride (Sodium Chloride 0.9%) 1,000 mls @ 100 mls/hr IV .Q10H [facility] Last Admin: 11/11/17 03:18 Dose: 100 mls/hr Methylprednisolone (Solu-Medrol) 40 mg IVP Q8 [facility] Last Admin: 11/11/17 16:30 Dose: 40 mg Fluticasone/Salmeterol (Advair Diskus 250/50) 1 puff IH Q12 [facility] Last Admin: 11/11/17 09:24 Dose: 1 puff - Labs Labs: 11/09/17 04:35 11/09/17 04:35 Attending/Attestation - Attestation I have personally seen and examined this patient.: Yes I have fully participated in the care of the patient.: Yes I have reviewed all pertinent clinical information, including history, physical exam and plan: Yes Notes (Text): 11/11/17 18:12 Seen, examined, and discussed with resident. Agree with findings and plan as above.
--- NOTE | 2017-11-11 13:53 | RAD ---
Date of service: 11/11/2017 HISTORY: cough r/o Pneumonia COMPARISON: 11/08/2017 TECHNIQUE: Chest PA and lateral FINDINGS: LUNGS: No active pulmonary disease. PLEURA: No significant pleural effusion identified. No pneumothorax apparent. CARDIOVASCULAR: Normal. OSSEOUS STRUCTURES: No significant abnormalities. VISUALIZED UPPER ABDOMEN: Normal. OTHER FINDINGS: None. IMPRESSION: No active disease. No interval pathology noted
[2017-11-12] MEDS: Albuterol-Ipratrop 3 mg / 0.5 (3 ml) UD INH SCH ×4 (00:19→11:49)
[2017-11-12] MEDS: MethylPREDNISolone 40 mg Vial IVP SCH ×2 (02:01→10:25)
[2017-11-12 08:24] VITALS: RESP 18
[2017-11-12] MEDS: Fluticasone-Salmeterol 250-50mcg Diskus IH SCH (10:23)
[2017-11-12] MEDS: Sodium Chloride 0.9% 1,000 ML IV SCH (10:27)
--- NOTE | 2017-11-12 10:41 | CP.PCM.DIS ---
<Joselin Marsh - Last Filed: 11/12/17 12:45> Provider - Provider Date of Admission: 11/09/17 15:45 Attending physician: Chon Vail MD Time Spent in preparation of Discharge (in minutes): 35 Hospital Course - Lab Results Lab Results: Micro Results 11/08/17 15:00 Blood Blood Culture - Preliminary NO GROWTH AFTER 3 DAYS 11/08/17 15:00 Sputum Gram Stain - Final 11/08/17 15:00 Sputum Sputum Culture - Final NORMAL ORAL LEX Most Recent Lab Values WBC 7.7 K/uL (4.8-10.8) 11/09/17 04:35 RBC 4.75 Mil/uL (4.40-5.90) 11/09/17 04:35 Hgb 14.5 g/dL (12.0-18.0) 11/09/17 04:35 Hct 43.9 % (35.0-51.0) 11/09/17 04:35 MCV 92.4 fl (80.0-94.0) 11/09/17 04:35 MCH 30.6 pg (27.0-31.0) 11/09/17 04:35 MCHC 33.1 g/dL (33.0-37.0) 11/09/17 04:35 RDW 13.3 % (11.5-14.5) 11/09/17 04:35 Plt Count 397 K/uL (130-400) 11/09/17 04:35 MPV 7.8 fl (7.2-11.7) 11/09/17 04:35 Neut % (Auto) 79.5 % (50.0-75.0) H 11/09/17 04:35 Lymph % (Auto) 12.5 % (20.0-40.0) L 11/09/17 04:35 [place] % (Auto) 7.7 % (0.0-10.0) 11/09/17 04:35 Eos % (Auto) 0.0 % (0.0-4.0) 11/09/17 04:35 Baso % (Auto) 0.3 % (0.0-2.0) 11/09/17 04:35 Neut # (Auto) 6.1 K/uL (1.8-7.0) 11/09/17 04:35 Lymph # (Auto) 1.0 K/uL (1.0-4.3) 11/09/17 04:35 [place] # (Auto) 0.6 K/uL (0.0-0.8) 11/09/17 04:35 Eos # (Auto) 0.0 K/uL (0.0-0.7) 11/09/17 04:35 Baso # (Auto) 0.0 K/uL (0.0-0.2) 11/09/17 04:35 Neutrophils % (Manual) 84 % (42-75) H 11/08/17 13:23 Band Neutrophils % 2 % (0-2) 11/08/17 13:23 Lymphocytes % (Manual) 6 % (20-50) L 11/08/17 13:23 Monocytes % (Manual) 4 % (0-10) 11/08/17 13:23 Eosinophils % (Manual) 3 % (0-7) 11/08/17 13:23 Basophils % (Manual) 1 % (0-2) 11/08/17 13:23 Platelet Estimate Normal (NORMAL) 11/08/17 13:23 RBC Morphology Normal (NORMAL) 11/08/17 13:23 pO2 33 mm/Hg (30-55) 11/08/17 14:07 VBG pH 7.32 (7.32-7.43) 11/08/17 14:07 VBG pCO2 71 mmHg (40-60) H* 11/08/17 14:07 VBG HCO3 29.5 mmol/L 11/08/17 14:07 VBG Total CO2 38.8 mmol/L (22-28) H 11/08/17 14:07 VBG O2 Sat (Calc) 68.3 % (40-65) H 11/08/17 14:07 VBG Base Excess 7.3 mmol/L (0.0-2.0) H 11/08/17 14:07 VBG Potassium 4.1 mmol/L (3.6-5.2) 11/08/17 14:07 Sodium 134.0 mmol/L (132-148) 11/08/17 14:07 Chloride 98.0 mmol/L (98-107) 11/08/17 14:07 Glucose 137 mg/dL (75-110) H 11/08/17 14:07 Lactate 0.9 mmol/L (0.7-2.1) 11/08/17 14:07 FiO2 21.0 % 11/08/17 14:07 Blood Gas Comments Vbg 11/08/17 14:07 Crit Value Called To Aleks dale r.n. 11/08/17 14:07 Crit Value Called By Jenna 11/08/17 14:07 Crit Value Read Back Y 11/08/17 14:07 Blood Gas Notified Time 1410 11/08/17 14:07 Sodium 139 mmol/l (132-148) 11/09/17 04:35 Potassium 4.3 MMOL/L (3.6-5.0) 11/09/17 04:35 Chloride 102 mmol/L (98-107) 11/09/17 04:35 Carbon Dioxide 30 mmol/L (22-30) 11/09/17 04:35 Anion Gap 11 (10-20) 11/09/17 04:35 BUN 16 mg/dl (9-20) 11/09/17 04:35 Creatinine 0.6 mg/dl (0.8-1.5) L 11/09/17 04:35 Est GFR ( Amer) > 60 11/09/17 04:35 Est GFR (Non-Af Amer) > 60 11/09/17 04:35 Random Glucose 121 mg/dL (75-110) H 11/09/17 04:35 Calcium 8.9 mg/dL (8.4-10.2) 11/09/17 04:35 Total Bilirubin 0.3 mg/dl (0.2-1.3) 11/08/17 13:23 AST 17 U/L (17-59) 11/08/17 13:23 ALT 24 U/L (21-72) 11/08/17 13:23 Alkaline Phosphatase 73 U/L (38-126) 11/08/17 13:23 Troponin I 0.3650 ng/mL (0.00-0.120) H* 11/10/17 01:30 Total Protein 6.7 G/DL (6.3-8.2) 11/08/17 13:23 Albumin 3.8 g/dL (3.5-5.0) 11/08/17 13:23 Globulin 2.9 gm/dL (2.2-3.9) 11/08/17 13:23 Albumin/Globulin Ratio 1.3 (1.0-2.1) 11/08/17 13:23 Triglycerides 61 mg/DL (0-149) 11/09/17 04:35 Cholesterol 130 mg/dL (0-199) 11/09/17 04:35 LDL Cholesterol Direct 91 mg/dL (0-129) 11/09/17 04:35 HDL Cholesterol 24 MG/DL (30-70) L 11/09/17 04:35 Venous Blood Potassium 4.1 mmol/L (3.6-5.2) 11/08/17 14:07 Urine Color Yellow (YELLOW) 11/08/17 15:10 Urine Clarity Cloudy (Clear) 11/08/17 15:10 Urine pH 7.0 (5.0-8.0) 11/08/17 15:10 Ur Specific Chambers 1.018 (1.003-1.030) 11/08/17 15:10 Urine Protein Negative mg/dL (NEGATIVE) 11/08/17 15:10 Urine Glucose (UA) Neg mg/dL (Normal) 11/08/17 15:10 Urine Ketones Negative mg/dL (NEGATIVE) 11/08/17 15:10 Urine Blood Negative (NEGATIVE) 11/08/17 15:10 Urine Nitrate Negative (NEGATIVE) 11/08/17 15:10 Urine Bilirubin Negative (NEGATIVE) 11/08/17 15:10 Urine Urobilinogen 0.2-1.0 mg/dL (0.2-1.0) 11/08/17 15:10 Ur Leukocyte Esterase Neg David/uL (Negative) 11/08/17 15:10 Urine RBC (Auto) 2 /hpf (0-3) 11/08/17 15:10 Urine Microscopic WBC 1 /hpf (0-5) 11/08/17 15:10 Amorphous Sediment Rare /ul (<OCC) H 11/08/17 15:10 Urine Bacteria Rare (<OCC) 11/08/17 15:10 - Hospital Course Hospital Course: 67-year-old male patient with PMH of [place], COPD, and extensive smoking history ( 50 pack years) presents to ED c/o SOB, cough and sputum production that began one day prior to presentation. He reported constant chest tightness and mild chest pain that radiated to the back with cough and 1 subjective fever. He also complains of dysuria and increased urinary frequency for one month but denies hematuria. Patient was amitted and treated for 5 days. His COPD was treated with O2 NC 2L, IVF, Solumedrol IV 40mg Q8, DuoNeb Q4, Levoquin 750mg IV, Advair 250/50. Elevated troponin was found and trended, (peak 0.9850). He was cleared by cardio - Dr. Ling felt chest pain was pleuritic in nature; troponins elevated probably secondary to exac COPD/debilitated medical condition. His shortness of breath improved and was saturating well on room air, hemodynamically stable and cleared by the medicine team for discharge to home. Recommended follow up [facility] in 2-3 days. Discharge Exam - Head Exam Head Exam: ATRAUMATIC, NORMAL INSPECTION - Eye Exam Eye Exam: Normal appearance - ENT Exam ENT Exam: Mucous Membranes Moist - Neck Exam Neck exam: Full Rom - Respiratory Exam Respiratory Exam: Prolonged Expiratory Phase, NORMAL BREATHING PATTERN Additional comments: very minimal wheezing - Cardiovascular Exam Cardiovascular Exam: REGULAR RHYTHM - GI/Abdominal Exam GI & Abdominal Exam: Unremarkable. absent: Distended, Firm, Guarding - Extremities Exam Extremities exam: normal inspection - Neurological Exam Neurological exam: Alert, Oriented x3 - Psychiatric Exam Psychiatric exam: Normal Affect, Normal Mood - Skin Skin Exam: Normal Color, Warm Discharge Plan - Discharge Medications Prescriptions: Albuterol Sulfate [Proair Hfa] 2 puff IH Q6 PRN #1 inh PRN Reason: Shortness Of Breath Aspirin 81 mg PO DAILY #30 tab Atorvastatin [Lipitor] 20 mg PO HS #30 tab Benzonatate 200 mg PO TID PRN #20 capsule PRN Reason: Cough Carvedilol [Coreg] 12.5 mg PO Q12 #60 tab Clopidogrel [Plavix] 75 mg PO DAILY #30 tab Fluticasone/Salmeterol 250/50 [Advair Diskus 250/50] 1 puff IH Q12 #30 puff Methylprednisolone [Medrol Dose Pack (21 tabs)] 4 mg PO ASDIR #21 mg - Follow Up Plan Condition: STABLE Disposition: HOME/ ROUTINE Instructions: Chronic Obstructive Pulmonary Disease (COPD), Including Emphysema Additional Instructions: Follow up with [facility] in 2-3 days. Referrals: [facility] [Provider Group] <Edyta Means - Last Filed: 11/12/17 15:33> Provider - Provider Date of Admission: 11/09/17 15:45 Attending physician: Chon Vail MD Hospital Course - Lab Results Lab Results: Micro Results 11/08/17 15:00 Blood Blood Culture - Preliminary NO GROWTH AFTER 3 DAYS 11/08/17 15:00 Sputum Gram Stain - Final 11/08/17 15:00 Sputum Sputum Culture - Final NORMAL ORAL LEX Most Recent Lab Values WBC 7.7 K/uL (4.8-10.8) 11/09/17 04:35 RBC 4.75 Mil/uL (4.40-5.90) 11/09/17 04:35 Hgb 14.5 g/dL (12.0-18.0) 11/09/17 04:35 Hct 43.9 % (35.0-51.0) 11/09/17 04:35 MCV 92.4 fl (80.0-94.0) 11/09/17 04:35 MCH 30.6 pg (27.0-31.0) 11/09/17 04:35 MCHC 33.1 g/dL (33.0-37.0) 11/09/17 04:35 RDW 13.3 % (11.5-14.5) 11/09/17 04:35 Plt Count 397 K/uL (130-400) 11/09/17 04:35 MPV 7.8 fl (7.2-11.7) 11/09/17 04:35 Neut % (Auto) 79.5 % (50.0-75.0) H 11/09/17 04:35 Lymph % (Auto) 12.5 % (20.0-40.0) L 11/09/17 04:35 [place] % (Auto) 7.7 % (0.0-10.0) 11/09/17 04:35 Eos % (Auto) 0.0 % (0.0-4.0) 11/09/17 04:35 Baso % (Auto) 0.3 % (0.0-2.0) 11/09/17 04:35 Neut # (Auto) 6.1 K/uL (1.8-7.0) 11/09/17 04:35 Lymph # (Auto) 1.0 K/uL (1.0-4.3) 11/09/17 04:35 [place] # (Auto) 0.6 K/uL (0.0-0.8) 11/09/17 04:35 Eos # (Auto) 0.0 K/uL (0.0-0.7) 11/09/17 04:35 Baso # (Auto) 0.0 K/uL (0.0-0.2) 11/09/17 04:35 Neutrophils % (Manual) 84 % (42-75) H 11/08/17 13:23 Band Neutrophils % 2 % (0-2) 11/08/17 13:23 Lymphocytes % (Manual) 6 % (20-50) L 11/08/17 13:23 Monocytes % (Manual) 4 % (0-10) 11/08/17 13:23 Eosinophils % (Manual) 3 % (0-7) 11/08/17 13:23 Basophils % (Manual) 1 % (0-2) 11/08/17 13:23 Platelet Estimate Normal (NORMAL) 11/08/17 13:23 RBC Morphology Normal (NORMAL) 11/08/17 13:23 pO2 33 mm/Hg (30-55) 11/08/17 14:07 VBG pH 7.32 (7.32-7.43) 11/08/17 14:07 VBG pCO2 71 mmHg (40-60) H* 11/08/17 14:07 VBG HCO3 29.5 mmol/L 11/08/17 14:07 VBG Total CO2 38.8 mmol/L (22-28) H 11/08/17 14:07 VBG O2 Sat (Calc) 68.3 % (40-65) H 11/08/17 14:07 VBG Base Excess 7.3 mmol/L (0.0-2.0) H 11/08/17 14:07 VBG Potassium 4.1 mmol/L (3.6-5.2) 11/08/17 14:07 Sodium 134.0 mmol/L (132-148) 11/08/17 14:07 Chloride 98.0 mmol/L (98-107) 11/08/17 14:07 Glucose 137 mg/dL (75-110) H 11/08/17 14:07 Lactate 0.9 mmol/L (0.7-2.1) 11/08/17 14:07 FiO2 21.0 % 11/08/17 14:07 Blood Gas Comments Vbg 11/08/17 14:07 Crit Value Called To Aleks dale r.n. 11/08/17 14:07 Crit Value Called By Jenna 11/08/17 14:07 Crit Value Read Back Y 11/08/17 14:07 Blood Gas Notified Time 1410 11/08/17 14:07 Sodium 139 mmol/l (132-148) 11/09/17 04:35 Potassium 4.3 MMOL/L (3.6-5.0) 11/09/17 04:35 Chloride 102 mmol/L (98-107) 11/09/17 04:35 Carbon Dioxide 30 mmol/L (22-30) 11/09/17 04:35 Anion Gap 11 (10-20) 11/09/17 04:35 BUN 16 mg/dl (9-20) 11/09/17 04:35 Creatinine 0.6 mg/dl (0.8-1.5) L 11/09/17 04:35 Est GFR ( Amer) > 60 11/09/17 04:35 Est GFR (Non-Af Amer) > 60 11/09/17 04:35 Random Glucose 121 mg/dL (75-110) H 11/09/17 04:35 Calcium 8.9 mg/dL (8.4-10.2) 11/09/17 04:35 Total Bilirubin 0.3 mg/dl (0.2-1.3) 11/08/17 13:23 AST 17 U/L (17-59) 11/08/17 13:23 ALT 24 U/L (21-72) 11/08/17 13:23 Alkaline Phosphatase 73 U/L (38-126) 11/08/17 13:23 Troponin I 0.3650 ng/mL (0.00-0.120) H* 11/10/17 01:30 Total Protein 6.7 G/DL (6.3-8.2) 11/08/17 13:23 Albumin 3.8 g/dL (3.5-5.0) 11/08/17 13:23 Globulin 2.9 gm/dL (2.2-3.9) 11/08/17 13:23 Albumin/Globulin Ratio 1.3 (1.0-2.1) 11/08/17 13:23 Triglycerides 61 mg/DL (0-149) 11/09/17 04:35 Cholesterol 130 mg/dL (0-199) 11/09/17 04:35 LDL Cholesterol Direct 91 mg/dL (0-129) 11/09/17 04:35 HDL Cholesterol 24 MG/DL (30-70) L 11/09/17 04:35 Venous Blood Potassium 4.1 mmol/L (3.6-5.2) 11/08/17 14:07 Urine Color Yellow (YELLOW) 11/08/17 15:10 Urine Clarity Cloudy (Clear) 11/08/17 15:10 Urine pH 7.0 (5.0-8.0) 11/08/17 15:10 Ur Specific Chambers 1.018 (1.003-1.030) 11/08/17 15:10 Urine Protein Negative mg/dL (NEGATIVE) 11/08/17 15:10 Urine Glucose (UA) Neg mg/dL (Normal) 11/08/17 15:10 Urine Ketones Negative mg/dL (NEGATIVE) 11/08/17 15:10 Urine Blood Negative (NEGATIVE) 11/08/17 15:10 Urine Nitrate Negative (NEGATIVE) 11/08/17 15:10 Urine Bilirubin Negative (NEGATIVE) 11/08/17 15:10 Urine Urobilinogen 0.2-1.0 mg/dL (0.2-1.0) 11/08/17 15:10 Ur Leukocyte Esterase Neg David/uL (Negative) 11/08/17 15:10 Urine RBC (Auto) 2 /hpf (0-3) 11/08/17 15:10 Urine Microscopic WBC 1 /hpf (0-5) 11/08/17 15:10 Amorphous Sediment Rare /ul (<OCC) H 11/08/17 15:10 Urine Bacteria Rare (<OCC) 11/08/17 15:10 Attending/Attestation - Attestation I have personally seen and examined this patient.: Yes I have fully participated in the care of the patient.: Yes I have reviewed all pertinent clinical information, including history, physical exam and plan: Yes Notes (Text): 11/12/17 15:33 Seen, examined, and discussed with resident. Agree with findings and plan as above.
[2017-11-12 12:43] VITALS: BP 107/65; PULSE 65; TEMP 98; O2SAT 94
== END 2017-11-12 14:48 | disposition home or self-care (01) | DRG 88 ==
LOC: H.ER 12:44 → H.ERHOLD 14:01 → H.MEDSURG1 16:02 → H.TEL 11-09 00:34 → OBSVTOIN 11-09 15:45
DX: J44.1 Chronic obstructive pulmonary disease with (acute) exacerbation (principal); J44.0 Chronic obstructive pulmonary disease with (acute) lower respiratory infection; J20.9 Acute bronchitis, unspecified; R30.0 Dysuria; F17.210 Nicotine dependence, cigarettes, uncomplicated; I25.2 Old myocardial infarction; Z59.0 Homelessness; Z79.82 Long term (current) use of aspirin

== ENCOUNTER 2017-12-16 18:18 | Inpatient (IN) | payer SELFPAY ==
[2017-12-16] MEDS ORDERED: Albuterol-Ipratrop 3 mg / 0.5 (3 ml) UD INH STA ×2 (19:36→21:40)
--- NOTE | 2017-12-16 19:38 | ED PDOC ---
History of Present Illness History of Present Illness: 67 y/o male presents to the ED for evaluation of a subjective fever associated with myalgia, shortness of breath and a productive cough. Patient states cough produces yellow sputum. Patient reports he should be using a nebulizer but states he is homeless and can't afford the medications anymore. History obtained using [employer] [id number]. PMD: No Provider HPI: Influenza Time Seen by Provider: 12/16/17 18:44 Chief Complaint: Cough, Cold, Congestion Chief Complaint (Provider): Cough, Cold, Congestion History Per: Patient Exam Limitations: no limitations Onset/Duration Of Symptoms: Days Symptoms include: fever, bodyaches, cough Risk factors for flu complications: Yes: adult > 65 years Past Medical History Reviewed: Historical Data, Nursing Documentation, Vital Signs Vital Signs: Last Vital Signs Temp 97.2 F L 12/16/17 18:21 Pulse 103 H 12/16/17 18:21 Resp 19 12/16/17 18:21 BP 135/79 12/16/17 18:21 Pulse Ox 95 12/16/17 18:21 - Medical History PMH: Asthma, COPD Denies: HIV, Chronic Kidney Disease - Surgical History Surgical History: No Surg Hx - Family History Family History: States: Unknown Family Hx - Immunization History Hx Tetanus Toxoid Vaccination: No Hx Influenza Vaccination: No Hx Pneumococcal Vaccination: No - Home Medications Home Medications: Ambulatory Orders Medication Instructions Recorded Albuterol Sulfate [Proair Hfa] 2 puff IH Q6 PRN #1 inh 11/12/17 Aspirin 81 mg PO DAILY #30 tab 11/12/17 Atorvastatin [Lipitor] 20 mg PO HS #30 tab 11/12/17 Benzonatate 200 mg PO TID PRN #20 capsule 11/12/17 Carvedilol [Coreg] 12.5 mg PO Q12 #60 tab 11/12/17 Clopidogrel [Plavix] 75 mg PO DAILY #30 tab 11/12/17 Fluticasone/Salmeterol 250/50 1 puff IH Q12 #30 puff 11/12/17 [Advair Diskus 250/50] Methylprednisolone [Medrol Dose 4 mg PO ASDIR #21 mg 11/12/17 Pack (21 tabs)] - Allergies Allergies/Adverse Reactions: Allergies Allergy/AdvReac Type Severity Reaction Status Date / Time No Known Allergies Allergy Verified 11/08/17 12:59 Review of Systems ROS Statement: Except As Marked, All Systems Reviewed And Found Negative Constitutional: Positive for: Fever, Other (Myalgia) Respiratory: Positive for: Cough, Shortness of Breath Physical Exam - Reviewed Nursing Documentation Reviewed: Yes Vital Signs Reviewed: Yes - Physical Exam Appears: Positive for: No Acute Distress Head Exam: Positive for: ATRAUMATIC, NORMOCEPHALIC Skin: Positive for: Normal Color, Warm, Dry Eye Exam: Positive for: Normal appearance, EOMI, PERRL Neck: Positive for: Normal, Painless ROM Cardiovascular/Chest: Positive for: Regular Rate, Rhythm. Negative for: Murmur Respiratory: Positive for: Wheezing (bilateral) Gastrointestinal/Abdominal: Positive for: Normal Exam, Soft. Negative for: Tenderness Back: Positive for: Normal Inspection Extremity: Positive for: Normal ROM. Negative for: Pedal Edema, Deformity Neurologic/Psych: Positive for: Alert, Oriented. Negative for: Motor/Sensory Deficits Medical Decision Making Medical Decision Making: Time: 1935 Impression: Fevers, cough and shortness of breath Differentials include but not limited to COPD, pneumonia and bronchitis Plan: -- VBG Shock Panel -- EKG -- CMP -- CBC with differentials -- PTT -- Prothrombin Time -- CXR Two Views -- Duoneb 3mg/0.5mg (3 ml) UD 3 ml INH -- SOLU-Medrol 125 mg IVP -- Blood Culture -- Peak Flow Pre/Post Tx Scribe Attestation: Documented by Sudha Jimenez, acting as a scribe Mateus Jimenes MD. Provider Scribe Attestation: All medical record entries made by the Scribe were at my direction and personally dictated by me. I have reviewed the chart and agree that the record accurately reflects my personal performance of the history, physical exam, medical decision making, and the department course for this patient. I have also personally directed, reviewed, and agree with the discharge instructions and disposition. - ECG O2 Sat by Pulse Oximetry: 95 Disposition - Disposition
[2017-12-16] MEDS ORDERED: Albuterol-Ipratrop 3 mg / 0.5 (3 ml) UD ONE ×2 (19:54→22:33)
[2017-12-16 20:17] LABS: BASO # 0.1 K/uL (0.0-0.2); BASO % 0.6 % (0.0-2.0); EOS # 0.4 K/uL (0.0-0.7); EOS % 3.1 % (0.0-4.0); LYMPH # 1.1 K/uL (1.0-4.3); LYMPH % 7.7 % (20.0-40.0); MEAN CELL VOLUME 92.7 fl (80.0-94.0); MEAN CORPUSCULAR HEMOGLOBIN 30.9 pg (27.0-31.0); MEAN CORPUSCULAR HGB CONC 33.3 g/dL (33.0-37.0); MEAN PLATELET VOLUME 8.7 fl (7.2-11.7); MONO # 0.9 K/uL (0.0-0.8); MONO % 6.7 % (0.0-10.0); NEUT # 11.3 K/uL (1.8-7.0); NEUT % 81.9 % (50.0-75.0); PLATELET COUNT 292 K/uL (130-400); RBC 4.86 Mil/uL (4.40-5.90); RED CELL DISTRIBUTION WIDTH 14.8 % (11.5-14.5); WHITE BLOOD COUNT 13.8 K/uL (4.8-10.8)
[2017-12-16 20:20] LABS: VENOUS BLOOD GAS BASE EXCESS 6.6 mmol/L (0.0-2.0); VENOUS BLOOD GAS PCO2 59 mmHg (40-60); VENOUS BLOOD GAS PO2 35 mm/Hg (30-55); VENOUS BLOOD PH 7.37 (7.32-7.43)
[2017-12-16 20:23] LABS: INR 1.1; PROTHROMBIN TIME 12.4 Seconds (9.8-13.1)
[2017-12-16 20:26] LABS: PARTIAL THROMBOPLASTIN TIME 46.4 Seconds (25.6-37.1)
[2017-12-16 20:31] LABS: ALB/GLOB RATIO 1.3 (1.0-2.1); ALT/SGPT 26 U/L (21-72); AST/SGOT 18 U/L (17-59); BLOOD UREA NITROGEN 14 mg/dl (9-20); GFR NON-AFRICAN AMERICAN > 60
[2017-12-16] MEDS ORDERED: Azithromycin 500 MG in Sodium Chloride 0.9% 250 ML IV STA (20:37)
[2017-12-16] MEDS ORDERED: Azithromycin 500 MG IV IVPB ONE (20:40)
[2017-12-16] MEDS ORDERED: cefTRIAXone (Rocephin) 1 gm Inj ONE (22:29)
[2017-12-16 22:42] LABS: BANDS 4 % (0-2); BASOPHIL 1 % (0-2); EOSINOPHIL 2 % (0-7); LYMPHOCYTE 12 % (20-50); MONOCYTE 7 % (0-10); NEUTROPHIL 74 % (42-75); PLATELET ESTIMATE NORMAL (NORMAL); TOTAL CELLS COUNTED 100; TOXIC GRANULATION PRESENT
--- NOTE | 2017-12-17 00:15 | CP.PCM.HP ---
Addendum entered and electronically signed by Pavithra Arguelles MD 12/17/17 13:33: [facility] interpretation services-[id number] Patient seen and examined this morning currently on 2L of oxygen via NC . Patient still reports feeling dyspneic following episodes of coughing fits, and endorses chills, but states his breathing is much more improved in compared to yesterday. He denied fever or chest pain. -Continue dounebs 3ml INH Q4, pulmonicort 0.25mg INH BID, methylprednisolone 40mg IVP BID. -Continue rocephin 1g IVP QD & azithromycin 500mg/NS 250ml QD. -FU repeat CBC- WBC:12.9 today, decreased from 13.8 yesterday. -Awaiting results from blood culture. Original Note: <Keith Thomas - Last Filed: 12/17/17 00:17> History of Present Illness - History of Present Illness History of Present Illness: YUNIOR INT#:[id number] CC: "Love been having a bad cough, SOB and CP for a week" HPI: 67 y/o male with a PMHx remarkable for COPD presented to ER for evaluation of worsening SOB, cough, posttussive CP and subjective fevers/myalgias. Pt reports symptoms started last w/o triggering event or illness. Cough and SOB gradually worsened till today. Cough is productive, with dark yellow phelgm and increased amounts. He also has worsening SOB with the cough and even though he has been using his nebulizer, he has not noticed any improvements. He also reports his symptoms are associated with postussive chest pain, dizziness, fevers (but no recorded temp), and chills. He denies any night sweats/hemoptysis. He only takes a nebulized medication, and does not take another meds. No other complaints. Denies left arm/jaw pain, exertional CP, palpitations, N/V/D/C, urinary symptoms, numbness/tingling. ROS: 12 pts reviewed found to be negative unless otherwise mentioned in HPI PMD: none PMHx: COPD, hx of [place] (2004) PHospHx: multiple admissions for COPD exac 2018 ALL: NKDA Meds: none PSH: right thumb amputation SocialHx: 50 pack years, still smokes 1 ppd. Denies ETOH/drug use. Homeless. FamilyHx: denies DM/CAD/CA ED Course: Vitals: T 97.2, HR 103, BP 135/79, RR 19, POX 95% RA CBC: 13.8>15.0/45.1<292 CMP: wnl, BUN/Cr: 14/0.6 CXR: suspected right LL infiltrate Meds: Duoneb 3ml X2 Solu-medrol 125mg Rocephin 1gm Azithromycin 500mg Present on Admission - Present on Admission Any Indicators Present on Admission: No History of DVT/PE: No History of Uncontrolled Diabetes: No Urinary Catheter: No Decubitus Ulcer Present: No Past Patient History - Infectious Disease Hx of Infectious Diseases: None - Past Medical History & Family History Past Medical History?: Yes - Past Social History Smoking Status: Heavy Smoker > 10 Cigarettes Daily Alcohol: None Drugs: Denies Home Situation {Lives}: Homeless - CARDIAC Hx Cardiac Disorders: Yes - PULMONARY Hx Asthma: Yes Hx Chronic Obstructive Pulmonary Disease (COPD): Yes - NEUROLOGICAL Hx Neurological Disorder: No - HEENT Hx HEENT Problems: No - RENAL Hx Chronic Kidney Disease: No - ENDOCRINE/METABOLIC Hx Endocrine Disorders: Yes - HEMATOLOGICAL/ONCOLOGICAL Hx Human Immunodeficiency Virus (HIV): No - INTEGUMENTARY Hx Dermatological Problems: No - MUSCULOSKELETAL/RHEUMATOLOGICAL Hx Musculoskeletal Disorders: No - GASTROINTESTINAL Hx Gastrointestinal Disorders: No - GENITOURINARY/GYNECOLOGICAL Hx Genitourinary Disorders: No - PSYCHIATRIC Hx Psychophysiologic Disorder: No Hx Substance Use: No - SURGICAL HISTORY Hx Surgeries: Yes Hx Herniorrhaphy: Yes - ANESTHESIA Hx Anesthesia: Yes Hx Anesthesia Reactions: No Hx Malignant Hyperthermia: No Meds Allergies/Adverse Reactions: Allergies Allergy/AdvReac Type Severity Reaction Status Date / Time No Known Allergies Allergy Verified 11/08/17 12:59 Physical Exam - Constitutional Appears: Non-toxic, No Acute Distress, Cachectic - Head Exam Head Exam: ATRAUMATIC, NORMOCEPHALIC - Eye Exam Eye Exam: EOMI, PERRL. absent: Scleral icterus - ENT Exam ENT Exam: Mucous Membranes Moist - Neck Exam Neck exam: Negative for: Lymphadenopathy - Respiratory Exam Respiratory Exam: Decreased Breath Sounds, Prolonged Expiratory Phase, Rales, Wheezes, NORMAL BREATHING PATTERN. absent: Accessory Muscle Use, Clear to Auscultation Bilateral, Rhonchi, Respiratory Distress, Stridor - Cardiovascular Exam Cardiovascular Exam: REGULAR RHYTHM, RRR, +S1, +S2. absent: Bradycardia, Tachycardia, JVD, Rubs, Systolic Murmur - GI/Abdominal Exam GI & Abdominal Exam: Normal Bowel Sounds, Soft. absent: Tenderness - Extremities Exam Extremities exam: Positive for: normal capillary refill, normal inspection, pedal pulses present. Negative for: pedal edema, tenderness - Neurological Exam Neurological exam: Alert, CN II-XII Intact, Oriented x3 - Psychiatric Exam Psychiatric exam: Normal Affect, Normal Mood - Skin Skin Exam: Dry, Intact Results - Vital Signs Recent Vital Signs: Last Vital Signs Temp 98.4 F 12/16/17 23:44 Pulse 83 12/16/17 23:44 Resp 20 12/16/17 23:44 BP 122/68 12/16/17 23:44 Pulse Ox 93 L 12/16/17 23:44 - Labs Result Diagrams: 12/16/17 20:13 12/16/17 20:13 Labs: Laboratory Results - last 24 hr 12/16/17 12/16/17 12/16/17 19:44 20:13 20:13 WBC 13.8 H D RBC 4.86 Hgb 15.0 Hct 45.1 MCV 92.7 MCH 30.9 MCHC 33.3 RDW 14.8 H Plt Count 292 D MPV 8.7 Neut % (Auto) 81.9 H Lymph % (Auto) 7.7 L [place] % (Auto) 6.7 Eos % (Auto) 3.1 Baso % (Auto) 0.6 Neut # (Auto) 11.3 H Lymph # (Auto) 1.1 [place] # (Auto) 0.9 H Eos # (Auto) 0.4 Baso # (Auto) 0.1 Neutrophils % (Manual) 74 Band Neutrophils % 4 H Lymphocytes % (Manual) 12 L Monocytes % (Manual) 7 Eosinophils % (Manual) 2 Basophils % (Manual) 1 Toxic Granulation Present Platelet Estimate Normal PT INR APTT pO2 35 VBG pH 7.37 VBG pCO2 59 VBG HCO3 29.1 VBG Total CO2 35.9 H VBG O2 Sat (Calc) 74.7 H VBG Base Excess 6.6 H VBG Potassium 4.1 Sodium 137.0 141 Chloride 101.0 101 Glucose 106 Lactate 1.0 FiO2 21.0 Potassium 4.1 Carbon Dioxide 29 Anion Gap 15 BUN 14 Creatinine 0.6 L Est GFR ( Amer) > 60 Est GFR (Non-Af Amer) > 60 Random Glucose 112 H Calcium 9.0 Total Bilirubin 0.4 AST 18 ALT 26 Alkaline Phosphatase 63 Total Protein 7.2 Albumin 4.0 Globulin 3.2 Albumin/Globulin Ratio 1.3 Venous Blood Potassium 4.1 12/16/17 20:13 WBC RBC Hgb Hct MCV MCH MCHC RDW Plt Count MPV Neut % (Auto) Lymph % (Auto) [place] % (Auto) Eos % (Auto) Baso % (Auto) Neut # (Auto) Lymph # (Auto) [place] # (Auto) Eos # (Auto) Baso # (Auto) Neutrophils % (Manual) Band Neutrophils % Lymphocytes % (Manual) Monocytes % (Manual) Eosinophils % (Manual) Basophils % (Manual) Toxic Granulation Platelet Estimate PT 12.4 INR 1.1 APTT 46.4 H pO2 VBG pH VBG pCO2 VBG HCO3 VBG Total CO2 VBG O2 Sat (Calc) VBG Base Excess VBG Potassium Sodium Chloride Glucose Lactate FiO2 Potassium Carbon Dioxide Anion Gap BUN Creatinine Est GFR ( Amer) Est GFR (Non-Af Amer) Random Glucose Calcium Total Bilirubin AST ALT Alkaline Phosphatase Total Protein Albumin Globulin Albumin/Globulin Ratio Venous Blood Potassium Assessment & Plan - Assessment and Plan (Free Text) Assessment: 67 y/o male with PMHx of COPD admitted for acute COPD exacerbation. Plan: 1) Acute COPD Exacerbation -afebrile -leukocytosis 13.8 -c/w 1gm rocephin -c/w azithromycin 500mg -Duo-nebs Q4H KRYSTAL -start Pulmi-jennifer -Solu-medrol 40mg BID -02 via NC 2L PRN to maintain POX 90-92% -Chest CTA pending 2) Leukocytosis -afebrile -CXR suspected RLL infilatrate -Chest CTA pending -c/w abx as above -repeat AM labs 3) Prophylaxis -Lovenox 40mg SC QD -Pepcid 20mg PO 4) Diet -heart healthy 5) Code Status -full code <Eleazar Matthew P - Last Filed: 12/17/17 07:05> Results - Vital Signs Recent Vital Signs: Last Vital Signs Temp 98.4 F 12/16/17 23:44 Pulse 66 12/17/17 04:28 Resp 20 12/16/17 23:44 BP 122/68 12/16/17 23:44 Pulse Ox 93 L 12/16/17 23:44 - Labs Result Diagrams: 12/17/17 06:00 12/17/17 06:00 Labs: Laboratory Results - last 24 hr 12/16/17 12/16/17 12/16/17 19:44 20:13 20:13 WBC 13.8 H D RBC 4.86 Hgb 15.0 Hct 45.1 MCV 92.7 MCH 30.9 MCHC 33.3 RDW 14.8 H Plt Count 292 D MPV 8.7 Neut % (Auto) 81.9 H Lymph % (Auto) 7.7 L [place] % (Auto) 6.7 Eos % (Auto) 3.1 Baso % (Auto) 0.6 Neut # (Auto) 11.3 H Lymph # (Auto) 1.1 [place] # (Auto) 0.9 H Eos # (Auto) 0.4 Baso # (Auto) 0.1 Neutrophils % (Manual) 74 Band Neutrophils % 4 H Lymphocytes % (Manual) 12 L Monocytes % (Manual) 7 Eosinophils % (Manual) 2 Basophils % (Manual) 1 Toxic Granulation Present Platelet Estimate Normal PT INR APTT pO2 35 VBG pH 7.37 VBG pCO2 59 VBG HCO3 29.1 VBG Total CO2 35.9 H VBG O2 Sat (Calc) 74.7 H VBG Base Excess 6.6 H VBG Potassium 4.1 Sodium 137.0 141 Chloride 101.0 101 Glucose 106 Lactate 1.0 FiO2 21.0 Potassium 4.1 Carbon Dioxide 29 Anion Gap 15 BUN 14 Creatinine 0.6 L Est GFR ( Amer) > 60 Est GFR (Non-Af Amer) > 60 Random Glucose 112 H Calcium 9.0 Total Bilirubin 0.4 AST 18 ALT 26 Alkaline Phosphatase 63 Total Protein 7.2 Albumin 4.0 Globulin 3.2 Albumin/Globulin Ratio 1.3 Venous Blood Potassium 4.1 12/16/17 12/17/17 12/17/17 20:13 06:00 06:00 WBC 12.9 H RBC 4.81 Hgb 15.0 Hct 44.3 MCV 92.2 MCH 31.1 H MCHC 33.8 RDW 14.5 Plt Count 279 MPV Neut % (Auto) Lymph % (Auto) [place] % (Auto) Eos % (Auto) Baso % (Auto) Neut # (Auto) Lymph # (Auto) [place] # (Auto) Eos # (Auto) Baso # (Auto) Neutrophils % (Manual) Band Neutrophils % Lymphocytes % (Manual) Monocytes % (Manual) Eosinophils % (Manual) Basophils % (Manual) Toxic Granulation Platelet Estimate PT 12.4 INR 1.1 APTT 46.4 H pO2 VBG pH VBG pCO2 VBG HCO3 VBG Total CO2 VBG O2 Sat (Calc) VBG Base Excess VBG Potassium Sodium 138 Chloride 100 Glucose Lactate FiO2 Potassium 4.5 Carbon Dioxide 31 H Anion Gap 12 BUN 14 Creatinine 0.7 L Est GFR ( Amer) > 60 Est GFR (Non-Af Amer) > 60 Random Glucose 202 H Calcium 8.9 Total Bilirubin 0.2 AST 13 L D ALT 11 L D Alkaline Phosphatase 58 Total Protein 6.5 Albumin 3.6 Globulin 2.9 Albumin/Globulin Ratio 1.2 Venous Blood Potassium Attending/Attestation - Attestation I have personally seen and examined this patient.: Yes I have fully participated in the care of the patient.: Yes I have reviewed all pertinent clinical information: Yes Notes (Text): Assessment COPD Exacerbation Suspect PNA Has pleuritic cp Last admission NSTEMI Non compliance with meds Tobacco abuse Plan Nebs, pulmicort, solumedrol, rocephin, zithromax ASA 81mg, low dose metoprolol, unless causes worsening in bronco constriction Counselled about compliance and tobacco cessation GI/DVT prophylaxis see orders for detail.
[2017-12-17] MEDS: Albuterol-Ipratrop 3 mg / 0.5 (3 ml) UD INH SCH ×6 (04:28→23:43)
[2017-12-17 06:31] LABS: MEAN CELL VOLUME 92.2 fl (80.0-94.0); MEAN CORPUSCULAR HEMOGLOBIN 31.1 pg (27.0-31.0); MEAN CORPUSCULAR HGB CONC 33.8 g/dL (33.0-37.0); RBC 4.81 Mil/uL (4.40-5.90); RED CELL DISTRIBUTION WIDTH 14.5 % (11.5-14.5); WHITE BLOOD COUNT 12.9 K/uL (4.8-10.8)
[2017-12-17 06:40] LABS: ALB/GLOB RATIO 1.2 (1.0-2.1); ALBUMIN 3.6 g/dL (3.5-5.0); ALT/SGPT 11 U/L (21-72); AST/SGOT 13 U/L (17-59); BLOOD UREA NITROGEN 14 mg/dl (9-20); CALCIUM 8.9 mg/dL (8.4-10.2); GFR NON-AFRICAN AMERICAN > 60
[2017-12-17] MEDS: Budesonide 0.25 mg/2 ml Inhal Susp UD INH SCH ×2 (07:43→19:19)
[2017-12-17] MEDS: Enoxaparin 40 mg Syringe SC SCH (08:44)
[2017-12-17] MEDS: Azithromycin 500 MG in Sodium Chloride 0.9% 250 ML IVPB SCH (08:47)
[2017-12-17] MEDS: MethylPREDNISolone 40 mg Vial IVP SCH ×2 (08:54→21:52)
[2017-12-17] MEDS ORDERED: Enoxaparin 40 mg Syringe SC SCH (09:00)
[2017-12-17] MEDS ORDERED: Pneumococcal 23-Valent Vaccine IM ONE (09:00)
[2017-12-17] MEDS ORDERED: methylPREDNISolone 40 MG in Sodium Chloride 0.9% 50 ML IVPB SCH (09:00)
--- NOTE | 2017-12-17 09:49 | CARD ---
APPROVED REPORT Date of service: 12/16/2017 EKG Measurement Heart [id number] <Conclusion> Normal sinus rhythm Rightward axis Borderline ECG
[2017-12-17] MEDS ORDERED: Iodixanol 320 MG/ML 100 ML BOTTLE IV ONE (10:33)
[2017-12-17] MEDS ORDERED: Sodium Chloride 0.9% 50 ML IV ONE (10:33)
[2017-12-17 11:10] LABS: BARBITURATES, UR NEGATIVE (NEGATIVE); BENZODIAZEPINES, UR NEGATIVE (NEGATIVE); OPIATES, UR NEGATIVE (NEGATIVE); PHENCYCLIDINE, UR NEGATIVE (NEGATIVE)
--- NOTE | 2017-12-17 11:31 | RAD ---
Date of service: 12/16/2017 HISTORY: SOB COMPARISON: No prior. TECHNIQUE: Chest PA and lateral FINDINGS: LUNGS: Small calcified granulomas in left upper lobe. No infiltrate. PLEURA: No significant pleural effusion identified. No pneumothorax apparent. CARDIOVASCULAR: Normal. OSSEOUS STRUCTURES: No significant abnormalities. VISUALIZED UPPER ABDOMEN: Normal. OTHER FINDINGS: None. IMPRESSION: No active disease.
--- NOTE | 2017-12-17 13:56 | CT ---
Date of service: 12/17/2017 PROCEDURE: CT Chest with contrast (Pulmonary Angiogram) HISTORY: chest pain/pneumonia COMPARISON: 06/25/2017 CT thorax TECHNIQUE: Axial computed tomography images were obtained of the chest in the pulmonary arterial phase of enhancement. Coronal and sagittal reformatted images were created and reviewed. Maximum intensity projection (MIP) reconstructed images in the following planes: Axial only. Intravenous contrast dose: 90 cc Visipaque 320 Mean Hounsfield value in the main pulmonary artery: 282.70 Radiation dose: Total exam DLP = 259.01 mGy-cm. This CT exam was performed using one or more of the following dose reduction techniques: Automated exposure control, adjustment of the mA and/or kV according to patient size, and/or use of iterative reconstruction technique. FINDINGS: PULMONARY ARTERIES: Unremarkable. No pulmonary embolism. AORTA: No acute findings. No thoracic aortic aneurysm. LUNGS: Hyperinflation/manifestations of COPD Stable centrilobular emphysematous changes. Linear scarring anterior segment left upper lobe. No suspicious pulmonary nodules, masses or infiltrates. PLEURAL SPACES: Unremarkable. No effusion or pneumothorax. HEART: Unremarkable. No cardiomegaly. No significant pericardial effusion. LYMPH NODES: No lymphadenopathy. BONES, CHEST WALL: Unremarkable. No fracture or destructive lesion OTHER FINDINGS: Unremarkable. IMPRESSION: Unremarkable CT pulmonary angiogram. No pulmonary embolus. Stable emphysematous changes.
[2017-12-18] MEDS: Albuterol-Ipratrop 3 mg / 0.5 (3 ml) UD INH SCH ×6 (03:33→23:18)
[2017-12-18 06:18] LABS: HEMOGLOBIN 14.6 g/dL (12.0-18.0); MEAN CELL VOLUME 91.8 fl (80.0-94.0); MEAN CORPUSCULAR HEMOGLOBIN 30.9 pg (27.0-31.0); MEAN CORPUSCULAR HGB CONC 33.6 g/dL (33.0-37.0); RBC 4.73 Mil/uL (4.40-5.90); RED CELL DISTRIBUTION WIDTH 14.7 % (11.5-14.5); WHITE BLOOD COUNT 15.3 K/uL (4.8-10.8)
[2017-12-18] MEDS: Budesonide 0.25 mg/2 ml Inhal Susp UD INH SCH ×2 (07:13→19:06)
[2017-12-18] MEDS: Enoxaparin 40 mg Syringe SC SCH (08:30)
[2017-12-18] MEDS: Azithromycin 500 MG in Sodium Chloride 0.9% 250 ML IVPB SCH (09:19)
[2017-12-18] MEDS: MethylPREDNISolone 40 mg Vial IVP SCH ×2 (09:19→21:48)
--- NOTE | 2017-12-18 12:50 | CP.PCM.PN ---
Addendum entered and electronically signed by Chon Vail MD 12/18/17 17:32: Patient was seen and examined with resident. Case was discussed and agreed with assessment and plan of management. Original Note: Subjective - Date & Time of Evaluation Date of Evaluation: 12/18/17 Time of Evaluation: 10:06 - Subjective Subjective: Patient seen and examined this AM. He endorses his breathing has somewhat improv ed, but continues to have coughing fits with yellow green sputum. He denies any fever, chills, chest pain or shortness of breath. Objective - Vital Signs/Intake and Output Vital Signs (last 24 hours): Temp Pulse Resp BP Pulse Ox 97.4 F L 68 17 127/70 95 12/18/17 08:10 12/18/17 08:30 12/18/17 08:56 12/18/17 08:10 12/18/17 08:56 - Medications Medications: Current Medications Albuterol/Ipratropium (Duoneb 3 Mg/0.5 Mg (3 Ml) Ud) 3 ml INH RQ4 KRYSTAL Last Admin: 12/18/17 11:12 Dose: 3 ml Aspirin (Aspirin Chewable) 81 mg PO DAILY KRYSTAL Last Admin: 12/18/17 09:20 Dose: 81 mg Budesonide (Pulmicort Respules) 0.25 mg INH RBID KRYSTAL Last Admin: 12/18/17 07:13 Dose: 0.25 mg Enoxaparin Sodium (Lovenox) 40 mg SC DAILY KRYSTAL; Protocol Last Admin: 12/18/17 08:30 Dose: 40 mg Famotidine (Pepcid) 20 mg PO BID KRYSTAL Last Admin: 12/18/17 08:30 Dose: 20 mg Ceftriaxone Sodium 1 gm/ (Sodium Chloride) 100 mls @ 100 mls/hr IVPB DAILY KRYSTAL; Protocol Last Admin: 12/18/17 09:19 Dose: 100 mls/hr Azithromycin 500 mg/ Sodium (Chloride) 250 mls @ 250 mls/hr IVPB DAILY KRYSTAL; Pr otocol Last Admin: 12/18/17 09:19 Dose: 250 mls/hr Methylprednisolone (Solu-Medrol) 40 mg IVP Q12 KRYSTAL Last Admin: 12/18/17 09:19 Dose: 40 mg Metoprolol Tartrate (Lopressor) 25 mg PO Q12 KRYSTAL Last Admin: 12/18/17 08:30 Dose: 25 mg - Labs Labs: 12/18/17 05:40 12/17/17 06:00 PT 12.4 Seconds (9.8-13.1) 12/16/17 20:13 INR 1.1 12/16/17 20:13 APTT 46.4 Seconds (25.6-37.1) H 12/16/17 20:13 - Constitutional Appears: No Acute Distress - Head Exam Head Exam: ATRAUMATIC, NORMAL INSPECTION - Neck Exam Neck Exam: Full ROM - Cardiovascular Exam Cardiovascular Exam: REGULAR RHYTHM, +S1, +S2 - GI/Abdominal Exam GI & Abdominal Exam: Soft, Normal Bowel Sounds. absent: Firm, Guarding, Rigid, Tenderness - Extremities Exam Extremities Exam: absent: Calf Tenderness - Neurological Exam Neurological Exam: Alert, Awake, Oriented x3 - Psychiatric Exam Psychiatric exam: Normal Affect, Normal Mood - Skin Skin Exam: Dry, Intact Assessment and Plan - Assessment and Plan (Free Text) Assessment: 67 y/o male with medical hx of COPD was admitted for exacerbation of COPD. 1) Acute COPD Exacerbation -Continue dounebs 3ml INH Q4, pulmonicort 0.25mg INH BID & methylprednisolone 40mg IVP BID. -Continue rocephin 1g IVP QD & azithromycin 500mg/NS 250ml QD. -WBC 13.8 on admission, 12.9 yesterday, and 15.3 today. Increase in WBC likely due to treatment with Methylprednisolone. -Blood culture showed no growth. -Chest CTA showed changes consistent with COPD, and no evidence of PE. 2) Leukocytosis (Acute) -WBC 13.8 on admission, 12.9 yesterday, and 15.3 today. Increase in WBC today likely due to treatment with Methylprednisolone. -Patient continues to remain afebrile. CXR showed no active disease. Chest CTA showed changes consisten with COPD, and no evidence of PE. -Continue with management as mentioned above. 3) DVT Prophylaxis -Continue Lovenox 40mg SC QD 4) hx of GI bleed -Continue Pepcid 20mg PO 5) Diet -Continue heart healthy diet 6) Code Status -full code
[2017-12-18 15:30] LABS: SQUAMOUS EPITHIAL < 1 /hpf (0-5); URINE BILIRUBIN NEGATIVE (NEGATIVE); URINE BLOOD NEGATIVE (NEGATIVE); URINE CLARITY SLIGHTY-CLOUDY (Clear); URINE COLOR YELLOW (YELLOW); URINE GLUCOSE (UA) NEG (Normal); URINE HYALINE CAST 0-2 /hpf (0-2); URINE LEUKOCYTE ESTERASE NEG Leu/uL (Negative); URINE PROTEIN NEGATIVE (NEGATIVE); URINE UROBILINOGEN 0.2-1.0 mg/dL (0.2-1.0)
[2017-12-19] MEDS: Budesonide 0.25 mg/2 ml Inhal Susp UD INH SCH ×2 (08:07→19:32)
[2017-12-19] MEDS: Albuterol-Ipratrop 3 mg / 0.5 (3 ml) UD INH SCH ×4 (08:08→19:32)
[2017-12-19] MEDS: Enoxaparin 40 mg Syringe SC SCH (09:01)
[2017-12-19] MEDS: Azithromycin 500 MG in Sodium Chloride 0.9% 250 ML IVPB SCH (09:02)
[2017-12-19] MEDS: MethylPREDNISolone 40 mg Vial IVP SCH ×2 (09:14→21:15)
--- NOTE | 2017-12-19 12:38 | CP.PCM.PN ---
Subjective - Date & Time of Evaluation Date of Evaluation: 12/19/17 Time of Evaluation: 12:36 - Subjective Subjective: Pt seen and examined at bedside. States his breathing has improved however continues to have productive cough and wheezing with some difficulty breathing, Denies chest pain, SOB, N/V/D Objective - Vital Signs/Intake and Output Vital Signs (last 24 hours): Temp Pulse Resp BP Pulse Ox 97.6 F 61 19 124/70 96 12/19/17 07:48 12/19/17 07:48 12/19/17 07:48 12/19/17 07:48 12/19/17 07:48 - Medications Medications: Current Medications Albuterol/Ipratropium (Duoneb 3 Mg/0.5 Mg (3 Ml) Ud) 3 ml INH RQ4 KRYSTAL Last Admin: 12/19/17 11:59 Dose: 3 ml Aspirin (Aspirin Chewable) 81 mg PO DAILY KRYSTAL Last Admin: 12/19/17 09:01 Dose: 81 mg Budesonide (Pulmicort Respules) 0.25 mg INH RBID KRYSTAL Last Admin: 12/19/17 08:07 Dose: 0.25 mg Enoxaparin Sodium (Lovenox) 40 mg SC DAILY KRYSTAL; Protocol Last Admin: 12/19/17 09:01 Dose: 40 mg Famotidine (Pepcid) 20 mg PO BID KRYSTAL Last Admin: 12/19/17 09:01 Dose: 20 mg Ceftriaxone Sodium 1 gm/ (Sodium Chloride) 100 mls @ 100 mls/hr IVPB DAILY KRYSTAL; Protocol Last Admin: 12/19/17 09:02 Dose: 100 mls/hr Azithromycin 500 mg/ Sodium (Chloride) 250 mls @ 250 mls/hr IVPB DAILY KRYSTAL; Protocol Last Admin: 12/19/17 09:02 Dose: 250 mls/hr Methylprednisolone (Solu-Medrol) 40 mg IVP Q12 KRYSTAL Last Admin: 12/19/17 09:14 Dose: 40 mg Metoprolol Tartrate (Lopressor) 25 mg PO Q12 KRYSTAL Last Admin: 12/19/17 09:01 Dose: 25 mg - Labs Labs: 12/18/17 05:40 12/17/17 06:00 PT 12.4 Seconds (9.8-13.1) 12/16/17 20:13 INR 1.1 12/16/17 20:13 APTT 46.4 Seconds (25.6-37.1) H 12/16/17 20:13 - Constitutional Appears: No Acute Distress - Head Exam Head Exam: NORMAL INSPECTION - Eye Exam Eye Exam: Normal appearance - ENT Exam ENT Exam: Mucous Membranes Moist - Respiratory Exam Respiratory Exam: Wheezes - Cardiovascular Exam Cardiovascular Exam: REGULAR RHYTHM, +S1, +S2 - GI/Abdominal Exam GI & Abdominal Exam: Soft, Normal Bowel Sounds. absent: Tenderness - Neurological Exam Neurological Exam: Alert, Awake, CN II-XII Intact, Oriented x3 Assessment and Plan - Assessment and Plan (Free Text) Assessment: 67 y/o male with medical hx of COPD was admitted for exacerbation of COPD. 1) Acute COPD Exacerbation -Continue dounebs 3ml INH Q4, pulmonicort 0.25mg INH BID & methylprednisolone 40mg IVP BID. -Continue rocephin 1g IVP QD & azithromycin 500mg/NS 250ml QD. ( Day 3 antibiotics) -Blood culture showed no growth. -Chest CTA showed changes consistent with COPD, and no evidence of PE. 2) Leukocytosis (Acute) -WBC 15.3 secondary to steroids 3) hx of GI bleed -Continue Pepcid 20mg PO 4)DVT Prophylaxis -Continue Lovenox 40mg SC QD
[2017-12-20] MEDS: Albuterol-Ipratrop 3 mg / 0.5 (3 ml) UD INH SCH ×4 (00:08→11:40)
[2017-12-20] MEDS: Budesonide 0.25 mg/2 ml Inhal Susp UD INH SCH (07:28)
[2017-12-20 08:11] VITALS: BP 142/71; PULSE 52; RESP 19; TEMP 97.4; O2SAT 96
[2017-12-20] MEDS: Enoxaparin 40 mg Syringe SC SCH (08:12)
[2017-12-20] MEDS: MethylPREDNISolone 40 mg Vial IVP SCH (08:13)
[2017-12-20] MEDS: Azithromycin 500 MG in Sodium Chloride 0.9% 250 ML IVPB SCH (08:15)
--- NOTE | 2017-12-20 11:25 | CP.PCM.DIS ---
<Pavithra Arguelles - Last Filed: 12/20/17 14:23> Provider - Provider Date of Admission: 12/16/17 21:56 Attending physician: Eleazar Matthew MD Time Spent in preparation of Discharge (in minutes): 40 Diagnosis - Discharge Diagnosis (1) COPD exacerbation Status: Acute Priority: High (2) HTN (hypertension) Status: Chronic (3) History of coronary artery disease Status: Chronic (4) Hyperglycemia Status: Acute (5) Leukocytosis Status: Acute Hospital Course - Lab Results Lab Results: Micro Results 12/16/17 19:55 Blood Blood Culture - Preliminary NO GROWTH AFTER 3 DAYS 12/16/17 21:15 Blood Blood Culture - Preliminary NO GROWTH AFTER 3 DAYS Most Recent Lab Values WBC 15.3 K/uL (4.8-10.8) H 12/18/17 05:40 RBC 4.73 Mil/uL (4.40-5.90) 12/18/17 05:40 Hgb 14.6 g/dL (12.0-18.0) 12/18/17 05:40 Hct 43.4 % (35.0-51.0) 12/18/17 05:40 MCV 91.8 fl (80.0-94.0) 12/18/17 05:40 MCH 30.9 pg (27.0-31.0) 12/18/17 05:40 MCHC 33.6 g/dL (33.0-37.0) 12/18/17 05:40 RDW 14.7 % (11.5-14.5) H 12/18/17 05:40 Plt Count 272 K/uL (130-400) 12/18/17 05:40 MPV 8.7 fl (7.2-11.7) 12/16/17 20:13 Neut % (Auto) 81.9 % (50.0-75.0) H 12/16/17 20:13 Lymph % (Auto) 7.7 % (20.0-40.0) L 12/16/17 20:13 [place] % (Auto) 6.7 % (0.0-10.0) 12/16/17 20:13 Eos % (Auto) 3.1 % (0.0-4.0) 12/16/17 20:13 Baso % (Auto) 0.6 % (0.0-2.0) 12/16/17 20:13 Neut # (Auto) 11.3 K/uL (1.8-7.0) H 12/16/17 20:13 Lymph # (Auto) 1.1 K/uL (1.0-4.3) 12/16/17 20:13 [place] # (Auto) 0.9 K/uL (0.0-0.8) H 12/16/17 20:13 Eos # (Auto) 0.4 K/uL (0.0-0.7) 12/16/17 20:13 Baso # (Auto) 0.1 K/uL (0.0-0.2) 12/16/17 20:13 Neutrophils % (Manual) 74 % (42-75) 12/16/17 20:13 Band Neutrophils % 4 % (0-2) H 12/16/17 20:13 Lymphocytes % (Manual) 12 % (20-50) L 12/16/17 20:13 Monocytes % (Manual) 7 % (0-10) 12/16/17 20:13 Eosinophils % (Manual) 2 % (0-7) 12/16/17 20:13 Basophils % (Manual) 1 % (0-2) 12/16/17 20:13 Toxic Granulation Present 12/16/17 20:13 Platelet Estimate Normal (NORMAL) 12/16/17 20:13 PT 12.4 Seconds (9.8-13.1) 12/16/17 20:13 INR 1.1 12/16/17 20:13 APTT 46.4 Seconds (25.6-37.1) H 12/16/17 20:13 pO2 35 mm/Hg (30-55) 12/16/17 19:44 VBG pH 7.37 (7.32-7.43) 12/16/17 19:44 VBG pCO2 59 mmHg (40-60) 12/16/17 19:44 VBG HCO3 29.1 mmol/L 12/16/17 19:44 VBG Total CO2 35.9 mmol/L (22-28) H 12/16/17 19:44 VBG O2 Sat (Calc) 74.7 % (40-65) H 12/16/17 19:44 VBG Base Excess 6.6 mmol/L (0.0-2.0) H 12/16/17 19:44 VBG Potassium 4.1 mmol/L (3.6-5.2) 12/16/17 19:44 Sodium 137.0 mmol/L (132-148) 12/16/17 19:44 Chloride 101.0 mmol/L (98-107) 12/16/17 19:44 Glucose 106 mg/dL (75-110) 12/16/17 19:44 Lactate 1.0 mmol/L (0.7-2.1) 12/16/17 19:44 FiO2 21.0 % 12/16/17 19:44 Sodium 138 mmol/l (132-148) 12/17/17 06:00 Potassium 4.5 MMOL/L (3.6-5.0) 12/17/17 06:00 Chloride 100 mmol/L (98-107) 12/17/17 06:00 Carbon Dioxide 31 mmol/L (22-30) H 12/17/17 06:00 Anion Gap 12 (10-20) 12/17/17 06:00 BUN 14 mg/dl (9-20) 12/17/17 06:00 Creatinine 0.7 mg/dl (0.8-1.5) L 12/17/17 06:00 Est GFR ( Amer) > 60 12/17/17 06:00 Est GFR (Non-Af Amer) > 60 12/17/17 06:00 POC Glucose (mg/dL) 124 mg/dL (65-110) H 12/19/17 10:57 Random Glucose 202 mg/dL (75-110) H 12/17/17 06:00 Calcium 8.9 mg/dL (8.4-10.2) 12/17/17 06:00 Total Bilirubin 0.2 mg/dl (0.2-1.3) 12/17/17 06:00 AST 13 U/L (17-59) L D 12/17/17 06:00 ALT 11 U/L (21-72) L D 12/17/17 06:00 Alkaline Phosphatase 58 U/L (38-126) 12/17/17 06:00 Troponin I < 0.0120 ng/mL (0.00-0.120) 12/17/17 07:14 Total Protein 6.5 G/DL (6.3-8.2) 12/17/17 06:00 Albumin 3.6 g/dL (3.5-5.0) 12/17/17 06:00 Globulin 2.9 gm/dL (2.2-3.9) 12/17/17 06:00 Albumin/Globulin Ratio 1.2 (1.0-2.1) 12/17/17 06:00 Venous Blood Potassium 4.1 mmol/L (3.6-5.2) 12/16/17 19:44 Urine Color Yellow (YELLOW) 12/18/17 03:05 Urine Clarity Slighty-cloudy (Clear) 12/18/17 03:05 Urine pH 6.0 (5.0-8.0) 12/18/17 03:05 Ur Specific [place] 1.021 (1.003-1.030) 12/18/17 03:05 Urine Protein Negative mg/dL (NEGATIVE) 12/18/17 03:05 Urine Glucose (UA) Neg mg/dL (Normal) 12/18/17 03:05 Urine Ketones Negative mg/dL (NEGATIVE) 12/18/17 03:05 Urine Blood Negative (NEGATIVE) 12/18/17 03:05 Urine Nitrate Negative (NEGATIVE) 12/18/17 03:05 Urine Bilirubin Negative (NEGATIVE) 12/18/17 03:05 Urine Urobilinogen 0.2-1.0 mg/dL (0.2-1.0) 12/18/17 03:05 Ur Leukocyte Esterase Neg David/uL (Negative) 12/18/17 03:05 Urine RBC (Auto) 3 /hpf (0-3) 12/18/17 03:05 Urine Microscopic WBC < 1 /hpf (0-5) 12/18/17 03:05 Ur Squamous Epith Cells < 1 /hpf (0-5) 12/18/17 03:05 Hyaline Casts 0-2 /hpf (0-2) 12/18/17 03:05 Urine Opiates Screen Negative (NEGATIVE) 12/17/17 10:30 Urine Methadone Screen Negative (NEGATIVE) 12/17/17 10:30 Ur Barbiturates Screen Negative (NEGATIVE) 12/17/17 10:30 Ur Phencyclidine Scrn Negative (NEGATIVE) 12/17/17 10:30 Ur Amphetamines Screen Negative (NEGATIVE) 12/17/17 10:30 U Benzodiazepines Scrn Negative (NEGATIVE) 12/17/17 10:30 U Oth Cocaine Metabols Negative (NEGATIVE) 12/17/17 10:30 U Cannabinoids Screen Positive (NEGATIVE) H 12/17/17 10:30 - Hospital Course Hospital Course: 67 y/o male with a PMHx remarkable for COPD presented to ER for evaluation of worsening SOB, cough, posttussive CP and subjective fevers/myalgias. In ED, patient was found to have leukocytosis, and received 2 doses of Duoneb 3ml, Solu-medrol 125mg, Rocephin 1gm, and Azithromycin 500mg. Patient was admitted, started on pulmicort BID & duonebs Q4, and given oxygen via NC. Patient showed slow improved. This AM, patient appeared comfortable in no respiratory distress. He reported that his cough, and breathing were much more improved. 1) Acute COPD Exacerbation -Advair Diskus 250/50 -Albuterol sulfate Q6 PRN -Zithromax 500mg PO QD x 5 days -Medrol dose pack 2) Leukocytosis (Acute) -Zithromax 500mg PO QD x 5 days 3) Hyperglycemia (likely steroid induced) 4) hx of CAD -Asp 81mg PO QD, plavix 75mg PO QD & atorvastatin 20mg HS 5) HTN (Chronic) -Coreg 12.5 mg PO BID 6) hx of GI bleed Discharge Exam - Head Exam Head Exam: NORMAL INSPECTION - Neck Exam Neck exam: Full Rom - Respiratory Exam Respiratory Exam: Rhonchi. absent: Wheezes, Stridor Additional comments: Rhonchi on right lower base but no wheeze or crackles - Cardiovascular Exam Cardiovascular Exam: REGULAR RHYTHM, +S1, +S2 - GI/Abdominal Exam GI & Abdominal Exam: Normal Bowel Sounds, Soft. absent: Firm, Guarding, Tenderness - Neurological Exam Neurological exam: Alert, Oriented x3 - Psychiatric Exam Psychiatric exam: Normal Affect, Normal Mood - Skin Skin Exam: Dry, Intact Discharge Plan - Discharge Medications Prescriptions: RX: Albuterol Sulfate [Proair Hfa] 2 puff IH Q6 PRN #1 inh PRN Reason: Shortness Of Breath Azithromycin [Zithromax] 500 mg PO DAILY #5 tablet RX: Fluticasone/Salmeterol 250/50 [Advair Diskus 250/50] 1 puff IH Q12 #30 puff Methylprednisolone [Medrol Dose Pack (21 tabs)] 4 mg PO ASDIR #21 mg - Follow Up Plan Condition: GOOD Disposition: HOME/ ROUTINE Referrals: [facility] [place] [Outside] Karuna Lewis MD [Family Provider] - <Vail,Chon D - Last Filed: 12/20/17 16:03> Provider - Provider Date of Admission: 12/16/17 21:56 Attending physician: Eleazar Matthew MD Hospital Course - Lab Results Lab Results: Micro Results 12/16/17 19:55 Blood Blood Culture - Preliminary NO GROWTH AFTER 3 DAYS 12/16/17 21:15 Blood Blood Culture - Preliminary NO GROWTH AFTER 3 DAYS Most Recent Lab Values WBC 15.3 K/uL (4.8-10.8) H 12/18/17 05:40 RBC 4.73 Mil/uL (4.40-5.90) 12/18/17 05:40 Hgb 14.6 g/dL (12.0-18.0) 12/18/17 05:40 Hct 43.4 % (35.0-51.0) 12/18/17 05:40 MCV 91.8 fl (80.0-94.0) 12/18/17 05:40 MCH 30.9 pg (27.0-31.0) 12/18/17 05:40 MCHC 33.6 g/dL (33.0-37.0) 12/18/17 05:40 RDW 14.7 % (11.5-14.5) H 12/18/17 05:40 Plt Count 272 K/uL (130-400) 12/18/17 05:40 MPV 8.7 fl (7.2-11.7) 12/16/17 20:13 Neut % (Auto) 81.9 % (50.0-75.0) H 12/16/17 20:13 Lymph % (Auto) 7.7 % (20.0-40.0) L 12/16/17 20:13 [place] % (Auto) 6.7 % (0.0-10.0) 12/16/17 20:13 Eos % (Auto) 3.1 % (0.0-4.0) 12/16/17 20:13 Baso % (Auto) 0.6 % (0.0-2.0) 12/16/17 20:13 Neut # (Auto) 11.3 K/uL (1.8-7.0) H 12/16/17 20:13 Lymph # (Auto) 1.1 K/uL (1.0-4.3) 12/16/17 20:13 [place] # (Auto) 0.9 K/uL (0.0-0.8) H 12/16/17 20:13 Eos # (Auto) 0.4 K/uL (0.0-0.7) 12/16/17 20:13 Baso # (Auto) 0.1 K/uL (0.0-0.2) 12/16/17 20:13 Neutrophils % (Manual) 74 % (42-75) 12/16/17 20:13 Band Neutrophils % 4 % (0-2) H 12/16/17 20:13 Lymphocytes % (Manual) 12 % (20-50) L 12/16/17 20:13 Monocytes % (Manual) 7 % (0-10) 12/16/17 20:13 Eosinophils % (Manual) 2 % (0-7) 12/16/17 20:13 Basophils % (Manual) 1 % (0-2) 12/16/17 20:13 Toxic Granulation Present 12/16/17 20:13 Platelet Estimate Normal (NORMAL) 12/16/17 20:13 PT 12.4 Seconds (9.8-13.1) 12/16/17 20:13 INR 1.1 12/16/17 20:13 APTT 46.4 Seconds (25.6-37.1) H 12/16/17 20:13 pO2 35 mm/Hg (30-55) 12/16/17 19:44 VBG pH 7.37 (7.32-7.43) 12/16/17 19:44 VBG pCO2 59 mmHg (40-60) 12/16/17 19:44 VBG HCO3 29.1 mmol/L 12/16/17 19:44 VBG Total CO2 35.9 mmol/L (22-28) H 12/16/17 19:44 VBG O2 Sat (Calc) 74.7 % (40-65) H 12/16/17 19:44 VBG Base Excess 6.6 mmol/L (0.0-2.0) H 12/16/17 19:44 VBG Potassium 4.1 mmol/L (3.6-5.2) 12/16/17 19:44 Sodium 137.0 mmol/L (132-148) 12/16/17 19:44 Chloride 101.0 mmol/L (98-107) 12/16/17 19:44 Glucose 106 mg/dL (75-110) 12/16/17 19:44 Lactate 1.0 mmol/L (0.7-2.1) 12/16/17 19:44 FiO2 21.0 % 12/16/17 19:44 Sodium 138 mmol/l (132-148) 12/17/17 06:00 Potassium 4.5 MMOL/L (3.6-5.0) 12/17/17 06:00 Chloride 100 mmol/L (98-107) 12/17/17 06:00 Carbon Dioxide 31 mmol/L (22-30) H 12/17/17 06:00 Anion Gap 12 (10-20) 12/17/17 06:00 BUN 14 mg/dl (9-20) 12/17/17 06:00 Creatinine 0.7 mg/dl (0.8-1.5) L 12/17/17 06:00 Est GFR ( Amer) > 60 12/17/17 06:00 Est GFR (Non-Af Amer) > 60 12/17/17 06:00 POC Glucose (mg/dL) 124 mg/dL (65-110) H 12/19/17 10:57 Random Glucose 202 mg/dL (75-110) H 12/17/17 06:00 Calcium 8.9 mg/dL (8.4-10.2) 12/17/17 06:00 Total Bilirubin 0.2 mg/dl (0.2-1.3) 12/17/17 06:00 AST 13 U/L (17-59) L D 12/17/17 06:00 ALT 11 U/L (21-72) L D 12/17/17 06:00 Alkaline Phosphatase 58 U/L (38-126) 12/17/17 06:00 Troponin I < 0.0120 ng/mL (0.00-0.120) 12/17/17 07:14 Total Protein 6.5 G/DL (6.3-8.2) 12/17/17 06:00 Albumin 3.6 g/dL (3.5-5.0) 12/17/17 06:00 Globulin 2.9 gm/dL (2.2-3.9) 12/17/17 06:00 Albumin/Globulin Ratio 1.2 (1.0-2.1) 12/17/17 06:00 Venous Blood Potassium 4.1 mmol/L (3.6-5.2) 12/16/17 19:44 Urine Color Yellow (YELLOW) 12/18/17 03:05 Urine Clarity Slighty-cloudy (Clear) 12/18/17 03:05 Urine pH 6.0 (5.0-8.0) 12/18/17 03:05 Ur Specific [place] 1.021 (1.003-1.030) 12/18/17 03:05 Urine Protein Negative mg/dL (NEGATIVE) 12/18/17 03:05 Urine Glucose (UA) Neg mg/dL (Normal) 12/18/17 03:05 Urine Ketones Negative mg/dL (NEGATIVE) 12/18/17 03:05 Urine Blood Negative (NEGATIVE) 12/18/17 03:05 Urine Nitrate Negative (NEGATIVE) 12/18/17 03:05 Urine Bilirubin Negative (NEGATIVE) 12/18/17 03:05 Urine Urobilinogen 0.2-1.0 mg/dL (0.2-1.0) 12/18/17 03:05 Ur Leukocyte Esterase Neg David/uL (Negative) 12/18/17 03:05 Urine RBC (Auto) 3 /hpf (0-3) 12/18/17 03:05 Urine Microscopic WBC < 1 /hpf (0-5) 12/18/17 03:05 Ur Squamous Epith Cells < 1 /hpf (0-5) 12/18/17 03:05 Hyaline Casts 0-2 /hpf (0-2) 12/18/17 03:05 Urine Opiates Screen Negative (NEGATIVE) 12/17/17 10:30 Urine Methadone Screen Negative (NEGATIVE) 12/17/17 10:30 Ur Barbiturates Screen Negative (NEGATIVE) 12/17/17 10:30 Ur Phencyclidine Scrn Negative (NEGATIVE) 12/17/17 10:30 Ur Amphetamines Screen Negative (NEGATIVE) 12/17/17 10:30 U Benzodiazepines Scrn Negative (NEGATIVE) 12/17/17 10:30 U Oth Cocaine Metabols Negative (NEGATIVE) 12/17/17 10:30 U Cannabinoids Screen Positive (NEGATIVE) H 12/17/17 10:30 Attending/Attestation - Attestation I have personally seen and examined this patient.: Yes I have fully participated in the care of the patient.: Yes I have reviewed all pertinent clinical information, including history, physical exam and plan: Yes Notes (Text): 12/20/17 16:01 Patient seen and examined with resident. Case was discussed and agreed that patient was fit to be discharge home and to continue medications prescribed.
== END 2017-12-20 14:40 | disposition home or self-care (01) | DRG 88 ==
LOC: H.ER 18:18 → H.ERHOLD 21:56 → H.MEDSURG1 23:20
PROVIDERS: ADMIT Internal Medicine; ATTEND Internal Medicine
DX: J44.1 Chronic obstructive pulmonary disease with (acute) exacerbation (principal); T38.0X5A Adverse effect of glucocorticoids and synthetic analogues, initial encounter; Z59.0 Homelessness; Z79.02 Long term (current) use of antithrombotics/antiplatelets; Z79.82 Long term (current) use of aspirin; Z91.14 Patient's other noncompliance with medication regimen; R73.9 Hyperglycemia, unspecified; F17.210 Nicotine dependence, cigarettes, uncomplicated; I10 Essential (primary) hypertension; I25.2 Old myocardial infarction; I25.10 Atherosclerotic heart disease of native coronary artery without angina pectoris; Z23 Encounter for immunization

== ENCOUNTER 2017-12-29 13:01 | Emergency (ER) | payer SELFPAY ==
--- NOTE | 2017-12-29 13:55 | ED PDOC ---
HPI: CCC, URI, Sore Throat Time Seen by Provider: 12/29/17 13:40 Chief Complaint (Nursing): Shortness Of Breath History Per: Patient Onset/Duration Of Symptoms: Days (2) Current Symptoms Are (Timing): Still Present Associated Symptoms: Cough, Sputum. denies: Fever Severity: Moderate Additional Complaint(s): Cough productive thick yellow sputum assoc with SOB x 2 days. No improvement with nebs atb home. Denies fever. Past Medical History Vital Signs: Last Vital Signs Temp 98.0 F 12/29/17 13:06 Pulse 88 12/29/17 13:06 Resp 18 12/29/17 13:06 BP 118/71 12/29/17 13:06 Pulse Ox 93 L 12/29/17 13:06 - Medical History PMH: Asthma, COPD Denies: HIV, Chronic Kidney Disease - Family History Family History: States: Unknown Family Hx - Immunization History Hx Tetanus Toxoid Vaccination: No Hx Influenza Vaccination: No Hx Pneumococcal Vaccination: No - Home Medications Home Medications: Ambulatory Orders Medication Instructions Recorded Aspirin 81 mg PO DAILY #30 tab 11/12/17 Atorvastatin [Lipitor] 20 mg PO HS #30 tab 11/12/17 Carvedilol [Coreg] 12.5 mg PO Q12 #60 tab 11/12/17 Clopidogrel [Plavix] 75 mg PO DAILY #30 tab 11/12/17 Albuterol Sulfate [Proair Hfa] 2 puff IH Q6 PRN #1 inh 12/20/17 Azithromycin [Zithromax] 500 mg PO DAILY #5 tablet 12/20/17 Fluticasone/Salmeterol 250/50 1 puff IH Q12 #30 puff 12/20/17 [Advair Diskus 250/50] Methylprednisolone [Medrol Dose 4 mg PO ASDIR #21 mg 12/20/17 Pack (21 tabs)] Albuterol HFA [Ventolin HFA 90 2 puff IH Q4H #1 puff 12/29/17 mcg/actuation (8 g)] Azithromycin [Zithromax] 250 mg PO DAILY #6 tab 12/29/17 Prednisone 50 mg PO DAILY #5 tab 12/29/17 - Allergies Allergies/Adverse Reactions: Allergies Allergy/AdvReac Type Severity Reaction Status Date / Time No Known Allergies Allergy Verified 10/23/18 13:05 Review of Systems ROS Statement: Except As Marked, All Systems Reviewed And Found Negative Constitutional: Negative for: Fever Respiratory: Positive for: Cough, Shortness of Breath, Wheezing Physical Exam - Reviewed Nursing Documentation Reviewed: Yes Vital Signs Reviewed: Yes - Physical Exam Appears: Positive for: Non-toxic, Uncomfortable Head Exam: Positive for: ATRAUMATIC, NORMAL INSPECTION, NORMOCEPHALIC Skin: Positive for: Normal Color, Warm, DRY Eye Exam: Positive for: EOMI, Normal appearance, PERRL ENT: Positive for: Normal ENT Inspection Neck: Positive for: Normal, Painless ROM Cardiovascular/Chest: Positive for: Regular Rate, Rhythm Respiratory: Positive for: Rhonchi, Wheezing, Respiratory Distress (mild) Gastrointestinal/Abdominal: Positive for: Normal Exam, Soft Back: Positive for: Normal Inspection Extremity: Positive for: Normal ROM Neurologic/Psych: Positive for: Alert, Oriented - Laboratory Results Result Diagrams: 12/29/17 14:15 12/29/17 14:15 - ECG O2 Sat by Pulse Oximetry: 93 - Progress Re-evaluation Time: 15:55 Condition: Improved (rhonchi no wheezing) Disposition - Clinical Impression Clinical Impression: COPD exacerbation - Patient ED Disposition Is Patient to be Admitted: No Counseled Patient/Family Regarding: Studies Performed, Diagnosis - Disposition Referrals: [facility] [Outside] Disposition: Routine/Home Disposition Time: 15:55 Condition: FAIR Prescriptions: Albuterol HFA [Ventolin HFA 90 mcg/actuation (8 g)] 2 puff IH Q4H #1 puff Azithromycin [Zithromax] 250 mg PO DAILY #6 tab Prednisone 50 mg PO DAILY #5 tab Instructions: Exacerbation of COPD Forms: [employer] (Maltese) Print Language: YAKUT
[2017-12-29] MEDS ORDERED: Albuterol-Ipratrop 3 mg / 0.5 (3 ml) UD ONE (13:57)
[2017-12-29] MEDS: Albuterol-Ipratrop 3 mg / 0.5 (3 ml) UD IH STA ×3 (13:58→14:12)
[2017-12-29 14:26] LABS: VENOUS BLOOD GAS BASE EXCESS 5.6 mmol/L (0.0-2.0); VENOUS BLOOD GAS PCO2 62 mmHg (40-60); VENOUS BLOOD GAS PO2 51 mm/Hg (30-55); VENOUS BLOOD PH 7.34 (7.32-7.43)
[2017-12-29 14:35] LABS: ALB/GLOB RATIO 1.1 (1.0-2.1); ALBUMIN 3.6 g/dL (3.5-5.0); ALT/SGPT 21 U/L (21-72); AST/SGOT 18 U/L (17-59); BLOOD UREA NITROGEN 16 mg/dl (9-20); GFR NON-AFRICAN AMERICAN > 60
[2017-12-29 14:43] LABS: BASO # 0.1 K/uL (0.0-0.2); BASO % 0.8 % (0.0-2.0); EOS # 1.2 K/uL (0.0-0.7); EOS % 11.8 % (0.0-4.0); HEMOGLOBIN 14.4 g/dL (12.0-18.0); LYMPH # 0.9 K/uL (1.0-4.3); MEAN CELL VOLUME 91.8 fl (80.0-94.0); MEAN CORPUSCULAR HEMOGLOBIN 31.3 pg (27.0-31.0); MEAN CORPUSCULAR HGB CONC 34.1 g/dL (33.0-37.0); MEAN PLATELET VOLUME 7.9 fl (7.2-11.7); MONO # 1.1 K/uL (0.0-0.8); MONO % 10.7 % (0.0-10.0); NEUT % 67.7 % (50.0-75.0); NRBC % 0.1 % (0.0-0.0); PLATELET COUNT 327 K/uL (130-400); RBC 4.61 Mil/uL (4.40-5.90); RED CELL DISTRIBUTION WIDTH 14.6 % (11.5-14.5); WHITE BLOOD COUNT 10.4 K/uL (4.8-10.8)
--- NOTE | 2017-12-29 14:55 | RAD ---
HISTORY: Cough COMPARISON: 12/16/2017 TECHNIQUE: Chest PA and lateral FINDINGS: LINES AND TUBES: None. LUNG AND PLEURA: The lungs are hyperinflated and there is peribronchial thickening with chronic changes in both lungs. No pleural effusion or pneumothorax. HEART AND MEDIASTINUM: The heart is not enlarged. Atherosclerotic aortic arch calcifications are present. The hilar and mediastinal contours are within normal limits. SKELETAL STRUCTURES: The bony structures are within normal limits for the patient's age. VISUALIZED UPPER ABDOMEN: Normal. OTHER FINDINGS: None. IMPRESSION: No active pulmonary disease. COPD.
[2017-12-29 16:16] LABS: BANDS 1 % (0-2); BASOPHIL 1 % (0-2); EOSINOPHIL 11 % (0-7); LYMPHOCYTE 7 % (20-50); MONOCYTE 11 % (0-10); NEUTROPHIL 69 % (42-75); TOTAL CELLS COUNTED 100
[2017-12-29 16:17] LABS: PLATELET ESTIMATE NORMAL (NORMAL)
[2017-12-29 17:02] VITALS: BP 128/71; PULSE 78; RESP 18; TEMP 98.6; O2SAT 95
== END 2017-12-29 17:01 | disposition home or self-care (01) ==
LOC: H.ER 13:01
DX: J44.1 Chronic obstructive pulmonary disease with (acute) exacerbation (principal)
CPT/HCPCS: 71046; 80053; 82803; 85025; 96374; 99283; J2930

== ENCOUNTER 2017-12-30 18:36 | Inpatient (IN) | payer SELFPAY ==
[2017-12-30] MEDS ORDERED: Albuterol-Ipratrop 3 mg / 0.5 (3 ml) UD IH STA ×3 (18:51→18:52)
[2017-12-30] MEDS ORDERED: Albuterol-Ipratrop 3 mg / 0.5 (3 ml) UD ONE (19:17)
--- NOTE | 2017-12-30 19:18 | ED PDOC ---
HPI: SOB/CHF/COPD Time Seen by Provider: 12/30/17 18:51 Chief Complaint (Nursing): Shortness Of Breath Chief Complaint (Provider): Shortness Of Breath History/Exam Limitations: no limitations Current Symptoms Are (Timing): Still Present Recently: Seen In ED Additional Complaint(s): Dylan Majano is a 67 year old male with a past medical history of asthma, who was brought to the emergency department by EMS for shortness of breath, wheezing, and nonproductive cough. He was seen in the hospital yesterday for the same symptoms but he did not fill his prescriptions. PMD: no provider Past Medical History Reviewed: Historical Data, Nursing Documentation, Vital Signs Vital Signs: Last Vital Signs Temp 97.7 F 12/30/17 18:46 Pulse 97 H 12/30/17 18:46 Resp 16 12/30/17 18:46 BP 143/89 12/30/17 18:46 Pulse Ox 90 L 12/30/17 18:46 - Medical History PMH: Asthma, COPD Denies: HIV, Chronic Kidney Disease - Surgical History Surgical History: No Surg Hx - Family History Family History: States: Unknown Family Hx - Immunization History Hx Tetanus Toxoid Vaccination: No Hx Influenza Vaccination: No Hx Pneumococcal Vaccination: No - Home Medications Home Medications: Ambulatory Orders Medication Instructions Recorded Aspirin 81 mg PO DAILY #30 tab 11/12/17 Atorvastatin [Lipitor] 20 mg PO HS #30 tab 11/12/17 Carvedilol [Coreg] 12.5 mg PO Q12 #60 tab 11/12/17 Clopidogrel [Plavix] 75 mg PO DAILY #30 tab 11/12/17 Albuterol Sulfate [Proair Hfa] 2 puff IH Q6 PRN #1 inh 12/20/17 Azithromycin [Zithromax] 500 mg PO DAILY #5 tablet 12/20/17 Fluticasone/Salmeterol 250/50 1 puff IH Q12 #30 puff 12/20/17 [Advair Diskus 250/50] Methylprednisolone [Medrol Dose 4 mg PO ASDIR #21 mg 12/20/17 Pack (21 tabs)] Albuterol HFA [Ventolin HFA 90 2 puff IH Q4H #1 puff 12/29/17 mcg/actuation (8 g)] Azithromycin [Zithromax] 250 mg PO DAILY #6 tab 12/29/17 Prednisone 50 mg PO DAILY #5 tab 12/29/17 - Allergies Allergies/Adverse Reactions: Allergies Allergy/AdvReac Type Severity Reaction Status Date / Time No Known Allergies Allergy Verified 12/30/17 18:46 Review of Systems ROS Statement: Except As Marked, All Systems Reviewed And Found Negative Respiratory: Positive for: Cough (nonproductive), Shortness of Breath, Wheezing Physical Exam - Reviewed Nursing Documentation Reviewed: Yes Vital Signs Reviewed: Yes - Physical Exam Appears: Positive for: Non-toxic, No Acute Distress Head Exam: Positive for: ATRAUMATIC, NORMOCEPHALIC Skin: Positive for: Normal Color, Warm, Dry Eye Exam: Positive for: Normal appearance, EOMI, PERRL Neck: Positive for: Normal, Painless ROM, Supple Cardiovascular/Chest: Positive for: Regular Rate, Rhythm. Negative for: Murmur Respiratory: Positive for: Rhonchi (bilaterally ), Wheezing (expiratory wheezing) Gastrointestinal/Abdominal: Positive for: Normal Exam, Soft. Negative for: Tenderness Back: Positive for: Normal Inspection. Negative for: L CVA Tenderness, R CVA Tenderness, Vertebral Tenderness Extremity: Positive for: Normal ROM. Negative for: Pedal Edema, Deformity, Swelling Neurologic/Psych: Positive for: Alert, Oriented (x3). Negative for: Motor/ Sensory Deficits - Laboratory Results Result Diagrams: 12/30/17 19:36 12/30/17 19:36 - ECG O2 Sat by Pulse Oximetry: 90 (RA) Pulse Ox Interpretation: Abnormal - Progress Re-evaluation Time: 21:51 Condition: Re-examined (Persistent wheezing post tx) Medical Decision Making Medical Decision Making: Initial Time: 18:51 Initial Plan: --CMP --CBC with differential --Duoneb 3 ml IH --Solu-medrol 125 mg IVP --Peak flow Pre/Post Tx Scribe Attestation: Documented by Hosea Green, acting as a scribe for Dada Patino MD Provider Scribe Attestation: All medical record entries made by the Scribe were at my direction and personally dictated by me. I have reviewed the chart and agree that the record accurately reflects my personal performance of the history, physical exam, medical decision making, and the department course for this patient. I have also personally directed, reviewed, and agree with the discharge instructions and disposition. Disposition - Clinical Impression Clinical Impression: COPD exacerbation - Patient ED Disposition Is Patient to be Admitted: Yes - Disposition Disposition Time: 21:52 Condition: FAIR Forms: [employer] (Swedish) - Pt Status Changed To: Hospital Disposition Of: Observation - POA Present On Arrival: None
[2017-12-30 19:45] LABS: BASO # 0.1 K/uL (0.0-0.2); BASO % 0.7 % (0.0-2.0); EOS # 0.2 K/uL (0.0-0.7); EOS % 1.5 % (0.0-4.0); LYMPH # 1.3 K/uL (1.0-4.3); LYMPH % 11.6 % (20.0-40.0); MEAN CELL VOLUME 91.8 fl (80.0-94.0); MEAN CORPUSCULAR HEMOGLOBIN 31.1 pg (27.0-31.0); MEAN CORPUSCULAR HGB CONC 33.9 g/dL (33.0-37.0); MEAN PLATELET VOLUME 7.2 fl (7.2-11.7); MONO % 9.1 % (0.0-10.0); NEUT # 8.5 K/uL (1.8-7.0); NEUT % 77.1 % (50.0-75.0); RBC 4.52 Mil/uL (4.40-5.90); RED CELL DISTRIBUTION WIDTH 14.1 % (11.5-14.5)
[2017-12-30 20:09] LABS: ALB/GLOB RATIO 1.1 (1.0-2.1); ALBUMIN 3.7 g/dL (3.5-5.0); ALT/SGPT 20 U/L (21-72); AST/SGOT 20 U/L (17-59); BLOOD UREA NITROGEN 19 mg/dl (9-20); CALCIUM 8.6 mg/dL (8.4-10.2); GFR NON-AFRICAN AMERICAN > 60
[2017-12-30 21:20] LABS: ABG ALLEN TEST YES; ARTERIAL BLOOD GAS HCO3 28.8 mmol/L (21-28); ARTERIAL BLOOD GAS O2 CAPACITY 18.2 mL/dL (16-24); ARTERIAL BLOOD GAS O2 CONTENT 17.5 ML/dL (15-23); ARTERIAL BLOOD GAS O2 SAT 95.9 % (95-98); ARTERIAL BLOOD GAS PCO2 61 mm/Hg (35-45); ARTERIAL BLOOD GAS PH 7.34 (7.35-7.45); ARTERIAL BLOOD GAS PO2 63 mm/Hg (80-100); ARTERIAL BLOOD GAS TCO2 34.8 mmol/L (22-28)
[2017-12-30] MEDS ORDERED: Albuterol-Ipratrop 3 mg / 0.5 (3 ml) UD INH PRN (22:04)
--- NOTE | 2017-12-30 22:31 | CP.PCM.HP ---
<Nunez,Tonyraejsh - Last Filed: 12/30/17 22:51> History of Present Illness - History of Present Illness History of Present Illness: 67 year old undomiciled male with hx of COPD presented with 3 day history of worsening shortness of breath, cough, increased sputum production. He reports subjective fevers and chills, with sharp anterior chest pain and sharp back pain 'in the lungs'. He admits to having rhinorrhea, but denies any myalgias, abdominal pain, nausea, vomiting, diarrhea. He was seen in ED yesterday but did not purchase medications due to financial reasons. PMH: COPD MEdications: none Allergies: NKDA Social: current smoker: 1 pack per day, no etoh use Surgical: right hernia repair. Present on Admission - Present on Admission Any Indicators Present on Admission: No Review of Systems - Constitutional Constitutional: Chills, Fever - EENT Eyes: absent: Blurred Vision, Change in Vision Nose/Mouth/Throat: Nasal Discharge - Cardiovascular Cardiovascular: Chest Pain (anterior, sharp non radiating), Dyspnea - Respiratory Respiratory: Cough, Dyspnea, Wheezing, Excessive Mucous Production - Gastrointestinal Gastrointestinal: absent: Abdominal Pain, Nausea, Vomiting - Neurological Neurological: absent: Dizziness, Tingling, Weakness Past Patient History - Infectious Disease Hx of Infectious Diseases: None - Past Medical History & Family History Past Medical History?: Yes - Past Social History Smoking Status: Heavy Smoker > 10 Cigarettes Daily - CARDIAC Hx Cardiac Disorders: Yes - PULMONARY Hx Asthma: Yes Hx Chronic Obstructive Pulmonary Disease (COPD): Yes - NEUROLOGICAL Hx Neurological Disorder: No - HEENT Hx HEENT Problems: No - RENAL Hx Chronic Kidney Disease: No - ENDOCRINE/METABOLIC Hx Endocrine Disorders: Yes - HEMATOLOGICAL/ONCOLOGICAL Hx Human Immunodeficiency Virus (HIV): No - INTEGUMENTARY Hx Dermatological Problems: No - MUSCULOSKELETAL/RHEUMATOLOGICAL Hx Musculoskeletal Disorders: No - GASTROINTESTINAL Hx Gastrointestinal Disorders: No - GENITOURINARY/GYNECOLOGICAL Hx Genitourinary Disorders: No - PSYCHIATRIC Hx Psychophysiologic Disorder: No Hx Substance Use: No - SURGICAL HISTORY Hx Surgeries: Yes Hx Herniorrhaphy: Yes - ANESTHESIA Hx Anesthesia: Yes Hx Anesthesia Reactions: No Hx Malignant Hyperthermia: No Meds Allergies/Adverse Reactions: Allergies Allergy/AdvReac Type Severity Reaction Status Date / Time No Known Allergies Allergy Verified 12/30/17 18:46 Physical Exam - Constitutional Appears: In Acute Distress (respiratory) - Head Exam Head Exam: ATRAUMATIC, NORMAL INSPECTION, NORMOCEPHALIC - Eye Exam Eye Exam: Normal appearance - Neck Exam Neck exam: Positive for: Normal Inspection - Respiratory Exam Respiratory Exam: Accessory Muscle Use, Rhonchi, Wheezes (diffusely), Respiratory Distress - Cardiovascular Exam Cardiovascular Exam: Tachycardia, REGULAR RHYTHM, +S1, +S2. absent: Diastolic murmur, Systolic Murmur - GI/Abdominal Exam GI & Abdominal Exam: Normal Bowel Sounds, Soft. absent: Tenderness - Extremities Exam Extremities exam: Positive for: normal capillary refill, normal inspection. Negative for: pedal edema Additional comments: no cyanosis - Neurological Exam Neurological exam: Alert, CN II-XII Intact, Oriented x3 - Psychiatric Exam Psychiatric exam: Normal Affect, Normal Mood - Skin Skin Exam: Dry, Intact, Normal Color, Warm Results - Vital Signs Recent Vital Signs: Last Vital Signs Temp 97.7 F 12/30/17 18:46 Pulse 76 12/30/17 19:31 Resp 22 12/30/17 19:31 BP 130/76 12/30/17 19:20 Pulse Ox 90 L 12/30/17 21:52 - Labs Result Diagrams: 12/30/17 19:36 12/30/17 19:36 Labs: Laboratory Results - last 24 hr 12/30/17 12/30/17 12/30/17 19:36 19:36 21:14 WBC 11.0 H RBC 4.52 Hgb 14.0 Hct 41.5 MCV 91.8 MCH 31.1 H MCHC 33.9 RDW 14.1 Plt Count 323 MPV 7.2 Neut % (Auto) 77.1 H Lymph % (Auto) 11.6 L [place] % (Auto) 9.1 Eos % (Auto) 1.5 Baso % (Auto) 0.7 Neut # (Auto) 8.5 H Lymph # (Auto) 1.3 [place] # (Auto) 1.0 H Eos # (Auto) 0.2 Baso # (Auto) 0.1 pCO2 61 H pO2 63 L HCO3 28.8 H ABG pH 7.34 L ABG Total CO2 34.8 H ABG O2 Saturation 95.9 ABG O2 Content 17.5 ABG Base Excess 5.2 H ABG Hemoglobin 14.0 ABG Carboxyhemoglobin 4.7 H POC ABG HHb (Measured) 3.8 ABG Methemoglobin 2.4 ABG O2 Capacity 18.2 Carlos Alberto Test Yes A-a O2 Difference 117.0 Hgb O2 Saturation 89.1 L FiO2 36.0 Sodium 138 Potassium 4.5 Chloride 99 Carbon Dioxide 32 H Anion Gap 12 BUN 19 Creatinine 0.7 L Est GFR ( Amer) > 60 Est GFR (Non-Af Amer) > 60 Random Glucose 105 Calcium 8.6 Total Bilirubin 0.2 AST 20 ALT 20 L Alkaline Phosphatase 68 Total Protein 7.2 Albumin 3.7 Globulin 3.5 Albumin/Globulin Ratio 1.1 Assessment & Plan - Assessment and Plan (Free Text) Assessment: #COPD EXACERBATION 67 year old male admitted for COPD exacerbation. Patient tachypneic and dyspneic, unable to speak in full sentences. He remains on O2 nasal cannula as his O2 sat drops to 90% on room air. Pco2 on AB, pH: 7.34 His breathing has improved since arrival to ED but admits he remains short of breath. Plan: -Levaquin 750mg IV -Duonebs q4 -Solumedrol IV -tylenol/Toradol for pain -O2 PRN -SCDs for now, lovenox in AM -Monitor respiratory status Case d/w attending. <Luis Perez - Last Filed: 12/31/17 02:08> Results - Vital Signs Recent Vital Signs: Last Vital Signs Temp 98.4 F 12/31/17 00:00 Pulse 76 12/31/17 00:00 Resp 20 12/31/17 00:00 BP 138/65 12/31/17 00:00 Pulse Ox 95 12/31/17 00:00 - Labs Result Diagrams: 12/30/17 19:36 12/30/17 19:36 Labs: Laboratory Results - last 24 hr 12/30/17 12/30/17 12/30/17 19:36 19:36 21:14 WBC 11.0 H RBC 4.52 Hgb 14.0 Hct 41.5 MCV 91.8 MCH 31.1 H MCHC 33.9 RDW 14.1 Plt Count 323 MPV 7.2 Neut % (Auto) 77.1 H Lymph % (Auto) 11.6 L [place] % (Auto) 9.1 Eos % (Auto) 1.5 Baso % (Auto) 0.7 Neut # (Auto) 8.5 H Lymph # (Auto) 1.3 [place] # (Auto) 1.0 H Eos # (Auto) 0.2 Baso # (Auto) 0.1 pCO2 61 H pO2 63 L HCO3 28.8 H ABG pH 7.34 L ABG Total CO2 34.8 H ABG O2 Saturation 95.9 ABG O2 Content 17.5 ABG Base Excess 5.2 H ABG Hemoglobin 14.0 ABG Carboxyhemoglobin 4.7 H POC ABG HHb (Measured) 3.8 ABG Methemoglobin 2.4 ABG O2 Capacity 18.2 Carlos Alberto Test Yes A-a O2 Difference 117.0 Hgb O2 Saturation 89.1 L FiO2 36.0 Sodium 138 Potassium 4.5 Chloride 99 Carbon Dioxide 32 H Anion Gap 12 BUN 19 Creatinine 0.7 L Est GFR ( Amer) > 60 Est GFR (Non-Af Amer) > 60 Random Glucose 105 Calcium 8.6 Total Bilirubin 0.2 AST 20 ALT 20 L Alkaline Phosphatase 68 Total Protein 7.2 Albumin 3.7 Globulin 3.5 Albumin/Globulin Ratio 1.1 Attending/Attestation - Attestation I have personally seen and examined this patient.: Yes I have fully participated in the care of the patient.: Yes I have reviewed all pertinent clinical information: Yes Notes (Text): 12/31/17 01:38 I saw, examined and discussed this patient with Dr Nunez. I agree with the Assessment and plan outlined . This is a 67 years old male with hx of COPD and severe persistent Asthma. Seen at the ED last PM and returns because of continued SOB and wheezing associated with coughing and purulent sputum. This Exacerbation of COPD would be treated with Intravenous Methylprednisolone and scheduled Duoneb, Low concentration Oxygen to maintain SpO2 88-92%. Levofloxacin would be added for atypical org anisms. Luis Perez MD
[2017-12-30] MEDS ORDERED: levoFLOXacin 750 mg in D5W 150 ML BAG IVPB SCH (22:45)
[2017-12-30] MEDS ORDERED: Albuterol 0.083% Inhal Sol (2.5 mg/3 mL) UD INH PRN (22:47)
[2017-12-31] MEDS ORDERED: methylPREDNISolone 80 MG in Sodium Chloride 0.9% 50 ML IVPB SCH (01:00)
[2017-12-31] MEDS ORDERED: levoFLOXacin 750 mg in D5W 750 MG/150 ML BAG IVPB ONE (01:02)
[2017-12-31] MEDS ORDERED: Albuterol 0.083% Inhal Sol (2.5 mg/3 mL) UD INH PRN (01:29)
[2017-12-31] MEDS: Albuterol-Ipratrop 3 mg / 0.5 (3 ml) UD INH SCH ×5 (04:00→19:05)
[2017-12-31 07:23] LABS: HEMOGLOBIN 14.2 g/dL (12.0-18.0); MEAN CELL VOLUME 91.9 fl (80.0-94.0); MEAN CORPUSCULAR HGB CONC 33.8 g/dL (33.0-37.0); RBC 4.59 Mil/uL (4.40-5.90); RED CELL DISTRIBUTION WIDTH 14.2 % (11.5-14.5); WHITE BLOOD COUNT 6.1 K/uL (4.8-10.8)
[2017-12-31] MEDS ORDERED: Albuterol-Ipratrop 3 mg / 0.5 (3 ml) UD INH STA ×2 (07:46→16:22)
--- NOTE | 2017-12-31 07:47 | CP.PCM.PN ---
<Ladonna Gaitan - Last Filed: 12/31/17 11:25> Subjective - Date & Time of Evaluation Date of Evaluation: 12/31/17 Time of Evaluation: 07:50 - Subjective Subjective: No acute overnight events. Pt remains afebrile, continues to endorse productive sputum and chest discomfort. Breathing comfortably in RA. Chills and dyspnea on admission, improving this AM. [id number] Objective - Vital Signs/Intake and Output Vital Signs (last 24 hours): Temp Pulse Resp BP Pulse Ox 98.1 F 63 19 128/67 95 12/31/17 05:23 12/31/17 05:23 12/31/17 05:23 12/31/17 05:23 12/31/17 05:00 - Medications Medications: Current Medications Acetaminophen (Tylenol 325mg Tab) 650 mg PO Q6 PRN PRN Reason: Fever >100.4 F Acetaminophen (Tylenol 325mg Tab) 650 mg PO Q6 PRN PRN Reason: Pain, moderate (4-7) Albuterol Sulfate (Albuterol 0.083% Inhal Love (2.5 Mg/3 Ml) Ud) 2.5 mg INH RQ2 PRN PRN Reason: Shortness of Breath Last Admin: 12/31/17 02:44 Dose: 2.5 mg Albuterol/Ipratropium (Duoneb 3 Mg/0.5 Mg (3 Ml) Ud) 3 ml INH RQ4 KRYSTAL Last Admin: 12/31/17 04:00 Dose: Not Given Albuterol/Ipratropium (Duoneb 3 Mg/0.5 Mg (3 Ml) Ud) 3 ml INH STAT STA Stop: 12/31/17 07:47 Enoxaparin Sodium (Lovenox) 40 mg SC DAILY KRYSTAL; Protocol Levofloxacin/Dextrose (Levaquin 750mg) 750 mg in 150 mls @ 100 mls/hr IVPB Q24H KRYSTAL Last Admin: 12/31/17 01:06 Dose: 100 mls/hr Ketorolac Tromethamine (Toradol) 15 mg IVP Q6 PRN PRN Reason: Pain, severe (8-10) Methylprednisolone (Solu-Medrol) 80 mg IV Q8H KRYSTAL Last Admin: 12/31/17 02:47 Dose: 80 mg - Labs Labs: 12/31/17 06:00 12/30/17 19:36 - Constitutional Appears: No Acute Distress, Other (NC on 2L) - Head Exam Head Exam: NORMAL INSPECTION - Eye Exam Eye Exam: EOMI, Normal appearance - ENT Exam ENT Exam: Mucous Membranes Moist - Respiratory Exam Respiratory Exam: Rhonchi (b/l upper and lower lobes), Wheezes (b/l upper and lower lobes), NORMAL BREATHING PATTERN - Cardiovascular Exam Cardiovascular Exam: Tachycardia, REGULAR RHYTHM, +S1, +S2 - GI/Abdominal Exam GI & Abdominal Exam: Soft, Normal Bowel Sounds. absent: Tenderness - Extremities Exam Extremities Exam: Normal Inspection. absent: Pedal Edema - Neurological Exam Neurological Exam: Alert, Awake, Oriented x3 Assessment and Plan - Assessment and Plan (Free Text) Assessment: Assessment/Plan: 67 YO male with PMHx of COPD is admitted for COPD exacerbation. COPD exacerbation -acute on chronic -improving but continues wheezing -duonab stat x3 -c/w Duonebs q4, O2 PRN, start tesslon pearls Q8, and mucinex -decrease Solumedrol IV from 80 Q8 to 40 Q8 -stop levo, start azithromycin IV -CXR ordered, pending -pulmonary consult; pending recs DVT prophylx -Lovenox SC <Gianni Cristina - Last Filed: 12/31/17 17:30> Objective - Vital Signs/Intake and Output Vital Signs (last 24 hours): Temp Pulse Resp BP Pulse Ox 97.2 F L 82 22 121/69 96 12/31/17 16:00 12/31/17 17:00 12/31/17 17:00 12/31/17 16:00 12/31/17 17:00 - Medications Medications: Current Medications Acetaminophen (Tylenol 325mg Tab) 650 mg PO Q6 PRN PRN Reason: Fever >100.4 F Acetaminophen (Tylenol 325mg Tab) 650 mg PO Q6 PRN PRN Reason: Pain, moderate (4-7) Albuterol Sulfate (Albuterol 0.083% Inhal Love (2.5 Mg/3 Ml) Ud) 2.5 mg INH RQ2 PRN PRN Reason: Shortness of Breath Last Admin: 12/31/17 02:44 Dose: 2.5 mg Albuterol/Ipratropium (Duoneb 3 Mg/0.5 Mg (3 Ml) Ud) 3 ml INH RQ4 KRYSTAL Last Admin: 12/31/17 15:42 Dose: 3 ml Albuterol/Ipratropium (Duoneb 3 Mg/0.5 Mg (3 Ml) Ud) 3 ml INH STAT KRYSTAL Stop: 01/01/18 17:01 Benzonatate (Tessalon Perles) 100 mg PO Q8 PRN PRN Reason: Cough Last Admin: 12/31/17 12:15 Dose: 100 mg Enoxaparin Sodium (Lovenox) 40 mg SC DAILY KRYSTAL; Protocol Last Admin: 12/31/17 12:15 Dose: 40 mg Guaifenesin (Mucinex La) 600 mg PO Q12 KRYSTAL Last Admin: 12/31/17 17:20 Dose: 600 mg Azithromycin 250 mg/ Sodium (Chloride) 250 mls @ 250 mls/hr IVPB DAILY KRYSTAL; Protocol Ketorolac Tromethamine (Toradol) 15 mg IVP Q6 PRN PRN Reason: Pain, severe (8-10) Methylprednisolone (Solu-Medrol) 40 mg IV Q8H KRYSTAL - Labs Labs: 12/31/17 06:00 12/31/17 06:00 Attending/Attestation - Attestation I have personally seen and examined this patient.: Yes I have fully participated in the care of the patient.: Yes I have reviewed all pertinent clinical information, including history, physical exam and plan: Yes Notes (Text): acute exacerbation of copd tob abuse strongly counseled to quit smoking patient agrees to quit agrees to try nicotine patch
[2017-12-31 07:58] LABS: BLOOD UREA NITROGEN 15 mg/dl (9-20); CALCIUM 8.5 mg/dL (8.4-10.2); GFR NON-AFRICAN AMERICAN > 60
[2017-12-31] MEDS ORDERED: Azithromycin 500 MG in Sodium Chloride 0.9% 250 ML IVPB STA (08:41)
[2017-12-31] MEDS: Enoxaparin 40 mg Syringe SC SCH (12:15)
[2017-12-31] MEDS ORDERED: MethylPREDNISolone 40 mg Vial IV SCH (12:45)
--- NOTE | 2017-12-31 16:23 | RAD ---
Date of service: 12/31/2017 HISTORY: chest pain, COPD COMPARISON: No prior. TECHNIQUE: Chest PA and lateral FINDINGS: LUNGS: Hyperinflation is appreciate bilaterally without infiltrate at this time. Increased anteroposterior chest diameter is reiterated with flattened hemidiaphragms, also compatible with COPD. PLEURA: No significant pleural effusion identified. No pneumothorax apparent. CARDIOVASCULAR: Calcific atherosclerotic changes are seen related to the thoracic aorta. Normal cardiac size once again. No pulmonary vascular congestion. OSSEOUS STRUCTURES: No significant abnormalities. VISUALIZED UPPER ABDOMEN: Normal. OTHER FINDINGS: None. IMPRESSION: COPD changes identified. No acute infiltrate, pleural effusion or pulmonary vascular congestion appreciable. Stable appearance in the interval.
[2017-12-31] MEDS ORDERED: Acetylcysteine 10% 4 ML IH ONE (16:32)
[2017-12-31] MEDS ORDERED: Albuterol-Ipratrop 3 mg / 0.5 (3 ml) UD INH SCH (17:00)
[2017-12-31] MEDS: guaiFENesin 600 mg ER Tab PO SCH ×2 (17:20→23:05)
[2017-12-31] MEDS ORDERED: guaiFENesin-Codeine 100-10mg/5ml Syrup (5 ml) UD PO PRN (17:31)
[2017-12-31] MEDS ORDERED: Acetylcysteine 20% Inhal Soln (4ml) INH SCH (20:00)
[2017-12-31] MEDS: MethylPREDNISolone 40 mg Vial IV SCH (20:53)
--- NOTE | 2017-12-31 20:56 | CP.PCM.CON ---
History of Present Illness - History of Present Illness History of Present Illness: CC: SOB. 67 y/o M, PMHx: COPD B/A since childhood, Heavy smoker, brought by EMS to [facility], [place] to be evaluated for gradually increased SOB for a week [employer], worsening on DOA, associated to wheezing, unable to speak in full sentences, intractable cough, unable to bring up phlegms, Pt using Albuterol at home with no relief. Today, Pt is having productive cough with whitish thick phlegms. Worsening symptoms: CP with coughing, subjective fever and chills while at home, SOB on Exertion and at rest. Aggravated factor: Non compliance with medications 2nd to financial reasons. Pt denied: CP, LOC, dizziness, n/v/d, abdominal pain, urinary symptoms, sick contact. CXR: COPD, Hyperinflation b/l without infiltrates. Off note: Pt was placed in ICU unit due to Telemetry overflow. Review of Systems - Constitutional Constitutional: Other (negative) - EENT Eyes: Other (negative) Ears: Other (negative) Nose/Mouth/Throat: Other (negative) - Cardiovascular Cardiovascular: Other (negative) - Respiratory Respiratory: Cough, Dyspnea, Dyspnea on Exertion, Wheezing, Pain with Coughing, Other (Moderate mucous production) - Gastrointestinal Gastrointestinal: Other (negative) - Genitourinary Genitourinary: Other (negative) - Musculoskeletal Musculoskeletal: Other (negative) - Integumentary Integumentary: Other (negative) - Neurological Neurological: Other (negative) - Psychiatric Psychiatric: Other (negative) - Endocrine Endocrine: Other (negative) - Hematologic/Lymphatic Hematologic: Other (negative) Past Patient History - Infectious Disease Hx of Infectious Diseases: None - Past Medical History & Family History Past Medical History?: Yes Pertinent Family History: Unknown - Past Social History Smoking Status: Heavy Smoker > 10 Cigarettes Daily Alcohol: None Home Situation {Lives}: Alone - CARDIAC Hx Cardiac Disorders: Yes - PULMONARY Hx Respiratory Disorders: Yes Hx Asthma: Yes Hx Chronic Obstructive Pulmonary Disease (COPD): Yes - NEUROLOGICAL Hx Neurological Disorder: No - HEENT Hx HEENT Problems: No - RENAL Hx Chronic Kidney Disease: No - ENDOCRINE/METABOLIC Hx Endocrine Disorders: Yes - HEMATOLOGICAL/ONCOLOGICAL Hx Human Immunodeficiency Virus (HIV): No - INTEGUMENTARY Hx Dermatological Problems: No - MUSCULOSKELETAL/RHEUMATOLOGICAL Hx Musculoskeletal Disorders: No - GASTROINTESTINAL Hx Gastrointestinal Disorders: No - GENITOURINARY/GYNECOLOGICAL Hx Genitourinary Disorders: No - PSYCHIATRIC Hx Psychophysiologic Disorder: No - SURGICAL HISTORY Hx Surgeries: Yes Hx Herniorrhaphy: Yes - ANESTHESIA Hx Anesthesia: Yes Hx Anesthesia Reactions: No Hx Malignant Hyperthermia: No Meds Allergies/Adverse Reactions: Allergies Allergy/AdvReac Type Severity Reaction Status Date / Time No Known Allergies Allergy Verified 12/30/17 18:46 - Medications Medications: Current Medications Acetaminophen (Tylenol 325mg Tab) 650 mg PO Q6 PRN PRN Reason: Fever >100.4 F Acetaminophen (Tylenol 325mg Tab) 650 mg PO Q6 PRN PRN Reason: Pain, moderate (4-7) Albuterol Sulfate (Albuterol 0.083% Inhal Love (2.5 Mg/3 Ml) Ud) 2.5 mg INH RQ2 PRN PRN Reason: Shortness of Breath Last Admin: 12/31/17 02:44 Dose: 2.5 mg Albuterol/Ipratropium (Duoneb 3 Mg/0.5 Mg (3 Ml) Ud) 3 ml INH RQ4 KRYSTAL Last Admin: 12/31/17 19:05 Dose: 3 ml Albuterol/Ipratropium (Duoneb 3 Mg/0.5 Mg (3 Ml) Ud) 3 ml INH STAT KRYSTAL Stop: 01/01/18 17:01 Benzonatate (Tessalon Perles) 100 mg PO Q8 PRN PRN Reason: Cough Last Admin: 12/31/17 12:15 Dose: 100 mg Enoxaparin Sodium (Lovenox) 40 mg SC DAILY KRYSTAL; Protocol Last Admin: 12/31/17 12:15 Dose: 40 mg Guaifenesin (Mucinex La) 600 mg PO Q12 KRYSTAL Last Admin: 12/31/17 17:20 Dose: 600 mg Guaifenesin/Codeine Phosphate (Robitussin W/Codeine) 5 ml PO Q4 PRN PRN Reason: Cough Azithromycin 250 mg/ Sodium (Chloride) 250 mls @ 250 mls/hr IVPB DAILY KRYSTAL; Protocol Ketorolac Tromethamine (Toradol) 15 mg IVP Q6 PRN PRN Reason: Pain, severe (8-10) Methylprednisolone (Solu-Medrol) 40 mg IV Q8H KRYSTAL Last Admin: 12/31/17 20:53 Dose: 40 mg Physical Exam - Constitutional Appears: No Acute Distress - Head Exam Head Exam: NORMAL INSPECTION - Eye Exam Eye Exam: PERRL - ENT Exam ENT Exam: Normal Exam - Neck Exam Neck exam: Positive for: Normal Inspection - Respiratory Exam Respiratory Exam: Decreased Breath Sounds (at bases), Rhonchi (b/l), Wheezes (b/l) - Cardiovascular Exam Cardiovascular Exam: REGULAR RHYTHM - GI/Abdominal Exam GI & Abdominal Exam: Normal Bowel Sounds, Soft - Extremities Exam Extremities exam: Positive for: normal inspection - Back Exam Back exam: NORMAL INSPECTION - Neurological Exam Neurological exam: Alert, Oriented x3 - Psychiatric Exam Psychiatric exam: Normal Mood - Skin Skin Exam: Warm Results - Vital Signs Recent Vital Signs: Last Vital Signs Temp 97.2 F L 12/31/17 16:00 Pulse 82 12/31/17 17:00 Resp 22 12/31/17 17:00 BP 121/69 12/31/17 16:00 Pulse Ox 96 12/31/17 17:00 reviewed Miguel Ángel - Labs Result Diagrams: 12/31/17 06:00 12/31/17 06:00 Labs: Laboratory Results - last 24 hr 12/30/17 12/31/17 12/31/17 21:14 06:00 06:00 WBC 6.1 RBC 4.59 Hgb 14.2 Hct 42.2 MCV 91.9 MCH 31.0 MCHC 33.8 RDW 14.2 Plt Count 329 pCO2 61 H pO2 63 L HCO3 28.8 H ABG pH 7.34 L ABG Total CO2 34.8 H ABG O2 Saturation 95.9 ABG O2 Content 17.5 ABG Base Excess 5.2 H ABG Hemoglobin 14.0 ABG Carboxyhemoglobin 4.7 H POC ABG HHb (Measured) 3.8 ABG Methemoglobin 2.4 ABG O2 Capacity 18.2 Carlos Alberto Test Yes A-a O2 Difference 117.0 Hgb O2 Saturation 89.1 L FiO2 36.0 Sodium 138 Potassium 4.6 Chloride 97 L Carbon Dioxide 31 H Anion Gap 15 BUN 15 Creatinine 0.5 L Est GFR ( Amer) > 60 Est GFR (Non-Af Amer) > 60 POC Glucose (mg/dL) Random Glucose 129 H Calcium 8.5 12/31/17 12/31/17 11:21 16:46 WBC RBC Hgb Hct MCV MCH MCHC RDW Plt Count pCO2 pO2 HCO3 ABG pH ABG Total CO2 ABG O2 Saturation ABG O2 Content ABG Base Excess ABG Hemoglobin ABG Carboxyhemoglobin POC ABG HHb (Measured) ABG Methemoglobin ABG O2 Capacity Carlos Alberto Test A-a O2 Difference Hgb O2 Saturation FiO2 Sodium Potassium Chloride Carbon Dioxide Anion Gap BUN Creatinine Est GFR ( Amer) Est GFR (Non-Af Amer) POC Glucose (mg/dL) 159 H 97 Random Glucose Calcium reviewed J.P. - Imaging and Cardiology Chest x-ray Status: Report reviewed by me (J.P.) Assessment & Plan (1) COPD exacerbation Status: Acute Priority: High (2) Heavy smoker Status: Acute Priority: High - Assessment and Plan (Free Text) Plan: NC 2 L/M, f/u Sputum C-S, continue Zithromax, Solu_medrol, Duoneb, Mucinex, Tessalon Perles and rest of Tx. - Date & Time Date: 12/31/17 Time: 18:00
[2017-12-31] MEDS ORDERED: guaiFENesin 600 mg ER Tab PO SCH (21:00)
[2017-12-31] MEDS ORDERED: Sodium Chloride 3% for Inhalation 4 ML VIAL.NEB IH PRN (22:22)
[2018-01-01] MEDS: Albuterol-Ipratrop 3 mg / 0.5 (3 ml) UD INH SCH ×4 (00:03→11:02)
[2018-01-01] MEDS: MethylPREDNISolone 40 mg Vial IV SCH ×3 (04:40→21:06)
[2018-01-01 05:40] LABS: HEMOGLOBIN 14.3 g/dL (12.0-18.0); LYMPH # 0.7 K/uL (1.0-4.3); LYMPH % 7.9 % (20.0-40.0); MEAN CELL VOLUME 91.9 fl (80.0-94.0); MEAN CORPUSCULAR HEMOGLOBIN 30.5 pg (27.0-31.0); MEAN CORPUSCULAR HGB CONC 33.2 g/dL (33.0-37.0); MEAN PLATELET VOLUME 7.4 fl (7.2-11.7); MONO # 0.8 K/uL (0.0-0.8); MONO % 8.1 % (0.0-10.0); NEUT # 7.9 K/uL (1.8-7.0); RBC 4.67 Mil/uL (4.40-5.90); WHITE BLOOD COUNT 9.5 K/uL (4.8-10.8)
[2018-01-01 05:59] LABS: BLOOD UREA NITROGEN 18 mg/dl (9-20); CALCIUM 8.6 mg/dL (8.4-10.2); GFR NON-AFRICAN AMERICAN > 60
[2018-01-01] MEDS: Enoxaparin 40 mg Syringe SC SCH (08:40)
[2018-01-01] MEDS: guaiFENesin 600 mg ER Tab PO SCH ×2 (08:41→21:06)
[2018-01-01] MEDS: Azithromycin 250 MG in Sodium Chloride 0.9% 250 ML IVPB SCH (08:42)
--- NOTE | 2018-01-01 11:36 | CP.PCM.PN ---
Addendum entered and electronically signed by Rome Potter MD 01/01/18 19:11: DX Active smoker COPD exacerbation cachetic BMI 19 Addendum entered and electronically signed by Rome Potter MD 01/01/18 19:07: Patient seen and examined bedside . All chart and clinical data reviewed . Case discussed with resident . Agree witha ssessment and plan 67 y/o homeless male , active smoker, COPD , presented with SOB and productive Cough Patient admitted with COPD exacerbation and started on Duonebs, Zithromax, Solumedrol IV At present much better with physical exam significant for a cachetic male ( BMI 19) with rhonchi and scattered wheezing on exam, saturating 98 % on RA and 2 L o2 via NC CXR showed no active disease Will continue current management Plan for d/c in AM Original Note: Subjective - Date & Time of Evaluation Date of Evaluation: 01/01/18 Time of Evaluation: 08:25 - Subjective Subjective: Patient seen and examined bedside. Reports feeling better but c/o productive cough occs. Denies SOB.Using NC 2 L. no overnight events. still wheezing present. Objective - Vital Signs/Intake and Output Vital Signs (last 24 hours): Temp Pulse Resp BP Pulse Ox 97.9 F 68 18 137/93 H 98 01/01/18 08:00 01/01/18 08:00 01/01/18 08:00 01/01/18 08:00 01/01/18 08:00 Intake and Output: 01/01/18 01/01/18 06:59 18:59 Intake Total 120 Output Total 900 Balance -780 - Medications Medications: Current Medications Acetaminophen (Tylenol 325mg Tab) 650 mg PO Q6 PRN PRN Reason: Fever >100.4 F Acetaminophen (Tylenol 325mg Tab) 650 mg PO Q6 PRN PRN Reason: Pain, moderate (4-7) Albuterol Sulfate (Albuterol 0.083% Inhal Love (2.5 Mg/3 Ml) Ud) 2.5 mg INH RQ2 PRN PRN Reason: Shortness of Breath Last Admin: 12/31/17 02:44 Dose: 2.5 mg Albuterol/Ipratropium (Duoneb 3 Mg/0.5 Mg (3 Ml) Ud) 3 ml INH RQ4 KRYSTAL Last Admin: 01/01/18 11:02 Dose: 3 ml Albuterol/Ipratropium (Duoneb 3 Mg/0.5 Mg (3 Ml) Ud) 3 ml INH STAT KRYSTAL Stop: 01/01/18 17:01 Benzonatate (Tessalon Perles) 100 mg PO Q8 PRN PRN Reason: Cough Last Admin: 12/31/17 12:15 Dose: 100 mg Enoxaparin Sodium (Lovenox) 40 mg SC DAILY KRYSTAL; Protocol Last Admin: 01/01/18 08:40 Dose: 40 mg Guaifenesin (Mucinex La) 600 mg PO Q12 KRYSTAL Last Admin: 01/01/18 08:41 Dose: 600 mg Guaifenesin/Codeine Phosphate (Robitussin W/Codeine) 5 ml PO Q4 PRN PRN Reason: Cough Last Admin: 01/01/18 00:01 Dose: 5 ml Azithromycin 250 mg/ Sodium (Chloride) 250 mls @ 250 mls/hr IVPB DAILY KRYSTAL; Protocol Last Admin: 01/01/18 08:42 Dose: 250 mls/hr Ketorolac Tromethamine (Toradol) 15 mg IVP Q6 PRN PRN Reason: Pain, severe (8-10) Methylprednisolone (Solu-Medrol) 40 mg IV Q8H [facility] Last Admin: 01/01/18 04:40 Dose: 40 mg - Labs Labs: 01/01/18 04:45 01/01/18 04:45 - Constitutional Appears: No Acute Distress - Respiratory Exam Respiratory Exam: Wheezes. absent: Decreased Breath Sounds, Rales Additional comments: prolonged expiration - Cardiovascular Exam Cardiovascular Exam: REGULAR RHYTHM, +S1, +S2 - GI/Abdominal Exam GI & Abdominal Exam: Soft, Normal Bowel Sounds. absent: Tenderness - Neurological Exam Neurological Exam: Alert, Awake Assessment and Plan - Assessment and Plan (Free Text) Plan: 67 YO male with PMHx of COPD is admitted for COPD exacerbation. COPD exacerbation -acute on chronic -improving but continues wheezing -c/w duonab -c/w Duonebs q4, O2 PRN, c/w tesslon pearls Q8, and mucinex -c/w Solumedrol IV from 80 Q8 to 40 Q8 -stop levo, c/w azithromycin IV -CXR ordered, pending -pulmonary consult appreciated. c/w same management and f/u sputum cx DVT prophylx -Lovenox SC
[2018-01-01] MEDS ORDERED: Promethazine/Cod 6.25mg-10mg/5ml Syr UD PO PRN (12:20)
[2018-01-01] MEDS: Acetylcysteine 10% 4 ML IH SCH ×6 (14:00→23:45)
[2018-01-01] MEDS: Ipratropium 0.02% Inhal Soln (0.5 mg/2.5 ml) UD IH SCH ×3 (14:00→23:45)
[2018-01-01] MEDS: Albuterol 0.083% Inhal Sol (2.5 mg/3 mL) UD INH SCH ×3 (15:15→23:45)
--- NOTE | 2018-01-01 17:11 | CP.PCM.PN ---
Subjective - Date & Time of Evaluation Date of Evaluation: 01/01/18 Time of Evaluation: 12:00 - Subjective Subjective: F/U COPD Exacerbation. cough with white color flegm, chest congestion, no SOB Objective - Vital Signs/Intake and Output Vital Signs (last 24 hours): Temp Pulse Resp BP Pulse Ox 97.9 F 84 20 134/65 98 01/01/18 08:00 01/01/18 16:08 01/01/18 16:08 01/01/18 16:08 01/01/18 16:08 Intake and Output: 01/01/18 01/01/18 06:59 18:59 Intake Total 120 Output Total 900 Balance -780 - Medications Medications: Current Medications Acetaminophen (Tylenol 325mg Tab) 650 mg PO Q6 PRN PRN Reason: Fever >100.4 F Acetaminophen (Tylenol 325mg Tab) 650 mg PO Q6 PRN PRN Reason: Pain, moderate (4-7) Acetylcysteine (Mucomyst 10% 4ml) 2 ml IH Q4 KRYSTAL Last Admin: 01/01/18 15:15 Dose: 2 ml Albuterol Sulfate (Albuterol 0.083% Inhal Love (2.5 Mg/3 Ml) Ud) 2.5 mg INH RQ4 KRYSTAL Last Admin: 01/01/18 15:15 Dose: 2.5 mg Benzonatate (Tessalon Perles) 100 mg PO Q8 PRN PRN Reason: Cough Last Admin: 01/01/18 12:00 Dose: 100 mg Enoxaparin Sodium (Lovenox) 40 mg SC DAILY KRYSTAL; Protocol Last Admin: 01/01/18 08:40 Dose: 40 mg Guaifenesin (Mucinex La) 600 mg PO Q12 KRYSTAL Last Admin: 01/01/18 08:41 Dose: 600 mg Azithromycin 250 mg/ Sodium (Chloride) 250 mls @ 250 mls/hr IVPB DAILY KRYSTAL; Protocol Last Admin: 01/01/18 08:42 Dose: 250 mls/hr Ipratropium [place] (Atrovent) 0.5 mg IH RQ6 KRYSTAL Ketorolac Tromethamine (Toradol) 15 mg IVP Q6 PRN PRN Reason: Pain, severe (8-10) Methylprednisolone (Solu-Medrol) 40 mg IV Q8H KRYSTAL Last Admin: 01/01/18 12:00 Dose: 40 mg Promethazine HCl/Codeine (Phenergan/Codeine Oral Syrup) 10 ml PO Q6 PRN PRN Reason: Cough - Labs Labs: 01/01/18 04:45 01/01/18 04:45 - Constitutional Appears: No Acute Distress - Head Exam Head Exam: NORMAL INSPECTION - Eye Exam Eye Exam: PERRL - ENT Exam ENT Exam: Normal Exam - Neck Exam Neck Exam: Normal Inspection - Respiratory Exam Respiratory Exam: Decreased Breath Sounds (at bases), Rhonchi (b/l), Wheezes (b/l) - Cardiovascular Exam Cardiovascular Exam: REGULAR RHYTHM - GI/Abdominal Exam GI & Abdominal Exam: Soft, Normal Bowel Sounds - Extremities Exam Extremities Exam: Normal Inspection - Back Exam Back Exam: NORMAL INSPECTION - Neurological Exam Neurological Exam: Alert, Oriented x3 - Psychiatric Exam Psychiatric exam: Normal Mood - Skin Skin Exam: Warm Assessment and Plan (1) COPD exacerbation Status: Acute (2) Heavy smoker Status: Acute - Assessment and Plan (Free Text) Plan: SoluMedrol, DuoNeb, Mucomyst, Mucinex, Zithromax
[2018-01-02] MEDS: Albuterol 0.083% Inhal Sol (2.5 mg/3 mL) UD INH SCH ×5 (03:31→19:10)
[2018-01-02] MEDS: Acetylcysteine 10% 4 ML IH SCH ×3 (03:32→15:52)
[2018-01-02] MEDS: MethylPREDNISolone 40 mg Vial IV SCH (05:06)
[2018-01-02] MEDS: Ipratropium 0.02% Inhal Soln (0.5 mg/2.5 ml) UD IH SCH ×3 (07:35→19:10)
[2018-01-02] MEDS: Enoxaparin 40 mg Syringe SC SCH (08:55)
[2018-01-02] MEDS: guaiFENesin 600 mg ER Tab PO SCH ×2 (08:56→22:26)
[2018-01-02] MEDS ORDERED: MethylPREDNISolone 40 mg Vial IV SCH (09:00)
[2018-01-02] MEDS: Azithromycin 250 MG in Sodium Chloride 0.9% 250 ML IVPB SCH (09:01)
--- NOTE | 2018-01-02 12:24 | CP.PCM.PN ---
Subjective - Date & Time of Evaluation Date of Evaluation: 01/01/18 Time of Evaluation: 11:30 - Subjective Subjective: Patient seen and examined bedside . Feeling better but still with coughing spells and some dyspnea. Worried about potential discharge to the streets today that is raining and there is strong winds Hemodynamically stable, afebrile Saturating 98-94 % in RA No acute issues overnight Objective - Vital Signs/Intake and Output Vital Signs (last 24 hours): Temp Pulse Resp BP Pulse Ox 97.8 F 66 18 129/76 98 01/02/18 08:00 01/02/18 09:00 01/02/18 08:00 01/02/18 08:00 01/02/18 08:00 - Medications Medications: Current Medications Acetaminophen (Tylenol 325mg Tab) 650 mg PO Q6 PRN PRN Reason: Fever >100.4 F Acetaminophen (Tylenol 325mg Tab) 650 mg PO Q6 PRN PRN Reason: Pain, moderate (4-7) Acetylcysteine (Mucomyst 10% 4ml) 2 ml IH RQ8 KRYSTAL Albuterol Sulfate (Albuterol 0.083% Inhal Love (2.5 Mg/3 Ml) Ud) 2.5 mg INH RQ4 KRYSTAL Last Admin: 01/02/18 11:45 Dose: 2.5 mg Benzonatate (Tessalon Perles) 100 mg PO Q8 PRN PRN Reason: Cough Last Admin: 01/01/18 12:00 Dose: 100 mg Enoxaparin Sodium (Lovenox) 40 mg SC DAILY KRYSTAL; Protocol Last Admin: 01/02/18 08:55 Dose: 40 mg Guaifenesin (Mucinex La) 600 mg PO Q12 KRYSTAL Last Admin: 01/02/18 08:56 Dose: 600 mg Azithromycin 250 mg/ Sodium (Chloride) 250 mls @ 250 mls/hr IVPB DAILY KRYSTAL; Protocol Last Admin: 01/02/18 09:01 Dose: 250 mls/hr Ipratropium [place] (Atrovent) 0.5 mg IH RQ6 KRYSTAL Last Admin: 01/02/18 11:45 Dose: 0.5 mg Ketorolac Tromethamine (Toradol) 15 mg IVP Q6 PRN PRN Reason: Pain, severe (8-10) Methylprednisolone (Solu-Medrol) 60 mg IV DAILY KRYSTAL Last Admin: 01/02/18 09:33 Dose: 60 mg Promethazine HCl/Codeine (Phenergan/Codeine Oral Syrup) 10 ml PO Q6 PRN PRN Reason: Cough - Labs Labs: 01/01/18 04:45 01/01/18 04:45 - Constitutional Appears: Non-toxic, No Acute Distress, Cachectic, Chronically Ill - Head Exam Head Exam: ATRAUMATIC, NORMOCEPHALIC - Eye Exam Eye Exam: EOMI, Normal appearance, PERRL Pupil Exam: NORMAL ACCOMODATION - ENT Exam ENT Exam: Mucous Membranes Moist, Normal Exam - Neck Exam Neck Exam: Full ROM, Normal Inspection - Respiratory Exam Respiratory Exam: Rhonchi (diffuse bilaterally ). absent: Rales, Wheezes, Respiratory Distress - Cardiovascular Exam Cardiovascular Exam: REGULAR RHYTHM, RRR, +S1, +S2. absent: JVD - GI/Abdominal Exam GI & Abdominal Exam: Soft, Normal Bowel Sounds. absent: Distended, Guarding, Tenderness, Rebound - Rectal Exam Rectal Exam: Deferred - Extremities Exam Extremities Exam: Normal Capillary Refill, Normal Inspection. absent: Pedal Edema - Back Exam Back Exam: NORMAL INSPECTION - Neurological Exam Neurological Exam: Alert, Awake, CN II-XII Intact, Oriented x3 - Psychiatric Exam Psychiatric exam: Normal Affect, Normal Mood - Skin Skin Exam: Dry, Intact, Warm Assessment and Plan - Assessment and Plan (Free Text) Assessment: 67 y/o homeless male with PMH COPD, active smoker presented with 3 day history o f worsening dyspnea, cough and sputum production . Patient admitted for COPDX exacerbation. At present doing better ,improved but still with rhonchi bilaterally 1. COPD exacerbation improving slowly continue duonebs, acetylcysteine INH tapered steroids to 60 mg iv daily on Zithromax IV continue O2 vi anC Continue current treatmet Plan for d/c in Am 2.Active smoker counselled patient 3.Cachetic BMI 19
[2018-01-02 15:52] VITALS: RESP 18
--- NOTE | 2018-01-02 17:30 | CP.PCM.PN ---
Subjective - Subjective Subjective: cough dry at times scanty amount of yellowish flegm, at times SOB with cough Objective - Vital Signs/Intake and Output Vital Signs (last 24 hours): Temp Pulse Resp BP Pulse Ox 97.4 F L 69 18 140/75 98 01/02/18 15:51 01/02/18 15:51 01/02/18 15:51 01/02/18 15:51 01/02/18 15:51 - Medications Medications: Current Medications Acetaminophen (Tylenol 325mg Tab) 650 mg PO Q6 PRN PRN Reason: Fever >100.4 F Acetaminophen (Tylenol 325mg Tab) 650 mg PO Q6 PRN PRN Reason: Pain, moderate (4-7) Acetylcysteine (Mucomyst 10% 4ml) 2 ml IH RQ8 KRYSTAL Last Admin: 01/02/18 15:52 Dose: 2 ml Albuterol Sulfate (Albuterol 0.083% Inhal Love (2.5 Mg/3 Ml) Ud) 2.5 mg INH RQ4 KRYSTAL Last Admin: 01/02/18 15:52 Dose: 2.5 mg Benzonatate (Tessalon Perles) 100 mg PO Q8 PRN PRN Reason: Cough Last Admin: 01/01/18 12:00 Dose: 100 mg Enoxaparin Sodium (Lovenox) 40 mg SC DAILY KRYSTAL; Protocol Last Admin: 01/02/18 08:55 Dose: 40 mg Guaifenesin (Mucinex La) 600 mg PO Q12 KRYSTAL Last Admin: 01/02/18 08:56 Dose: 600 mg Azithromycin 250 mg/ Sodium (Chloride) 250 mls @ 250 mls/hr IVPB DAILY KRYSTAL; Protocol Last Admin: 01/02/18 09:01 Dose: 250 mls/hr Ipratropium [place] (Atrovent) 0.5 mg IH RQ6 KRYSTAL Last Admin: 01/02/18 11:45 Dose: 0.5 mg Ketorolac Tromethamine (Toradol) 15 mg IVP Q6 PRN PRN Reason: Pain, severe (8-10) Methylprednisolone (Solu-Medrol) 60 mg IV DAILY KRYSTAL Last Admin: 01/02/18 09:33 Dose: 60 mg Promethazine HCl/Codeine (Phenergan/Codeine Oral Syrup) 10 ml PO Q6 PRN PRN Reason: Cough - Labs Labs: 01/01/18 04:45 01/01/18 04:45 - Constitutional Appears: No Acute Distress - Head Exam Head Exam: NORMAL INSPECTION - Eye Exam Eye Exam: PERRL - ENT Exam ENT Exam: Normal Exam - Neck Exam Neck Exam: Normal Inspection - Respiratory Exam Respiratory Exam: Decreased Breath Sounds (at bases), Rhonchi - Cardiovascular Exam Cardiovascular Exam: REGULAR RHYTHM - GI/Abdominal Exam GI & Abdominal Exam: Soft, Normal Bowel Sounds - Extremities Exam Extremities Exam: Normal Inspection - Back Exam Back Exam: NORMAL INSPECTION - Neurological Exam Neurological Exam: Alert, CN II-XII Intact, Oriented x3. absent: Motor Sensory Deficit - Psychiatric Exam Psychiatric exam: Anxious Assessment and Plan (1) COPD exacerbation Status: Acute (2) Heavy smoker Status: Acute - Assessment and Plan (Free Text) Plan: continue DuoNeb, Mucomyst, Zithromax, Mucinex, Prometh with Codeine, taper Solu Medrol
[2018-01-03] MEDS: Albuterol 0.083% Inhal Sol (2.5 mg/3 mL) UD INH SCH ×3 (00:39→08:21)
[2018-01-03] MEDS: Ipratropium 0.02% Inhal Soln (0.5 mg/2.5 ml) UD IH SCH ×2 (00:39→08:21)
[2018-01-03] MEDS: Acetylcysteine 10% 4 ML IH SCH ×2 (00:39→08:21)
[2018-01-03 08:57] VITALS: BP 133/81; TEMP 97.8; O2SAT 100
--- NOTE | 2018-01-03 09:06 | CP.PCM.DIS ---
Provider - Provider Date of Admission: 01/01/18 11:37 Attending physician: Rome Potter MD Primary care physician: None Consults: pulmonary consult Time Spent in preparation of Discharge (in minutes): 15 Hospital Course - Lab Results Lab Results: Micro Results 01/01/18 07:33 Sputum Gram Stain - Final 01/01/18 07:33 Sputum Sputum Culture - Final NORMAL ORAL LEX 01/01/18 18:27 Naris MRSA Culture (Admit) - Final MRSA NOT DETECTED 12/31/17 06:00 Nose MRSA Culture (Admit) - Final MRSA NOT DETECTED Most Recent Lab Values WBC 9.5 K/uL (4.8-10.8) D 01/01/18 04:45 RBC 4.67 Mil/uL (4.40-5.90) 01/01/18 04:45 Hgb 14.3 g/dL (12.0-18.0) 01/01/18 04:45 Hct 43.0 % (35.0-51.0) 01/01/18 04:45 MCV 91.9 fl (80.0-94.0) 01/01/18 04:45 MCH 30.5 pg (27.0-31.0) 01/01/18 04:45 MCHC 33.2 g/dL (33.0-37.0) 01/01/18 04:45 RDW 14.0 % (11.5-14.5) 01/01/18 04:45 Plt Count 306 K/uL (130-400) 01/01/18 04:45 MPV 7.4 fl (7.2-11.7) 01/01/18 04:45 Neut % (Auto) 84.0 % (50.0-75.0) H 01/01/18 04:45 Lymph % (Auto) 7.9 % (20.0-40.0) L 01/01/18 04:45 [place] % (Auto) 8.1 % (0.0-10.0) 01/01/18 04:45 Eos % (Auto) 0.0 % (0.0-4.0) 01/01/18 04:45 Baso % (Auto) 0.0 % (0.0-2.0) 01/01/18 04:45 Neut # (Auto) 7.9 K/uL (1.8-7.0) H 01/01/18 04:45 Lymph # (Auto) 0.7 K/uL (1.0-4.3) L 01/01/18 04:45 [place] # (Auto) 0.8 K/uL (0.0-0.8) 01/01/18 04:45 Eos # (Auto) 0.0 K/uL (0.0-0.7) 01/01/18 04:45 Baso # (Auto) 0.0 K/uL (0.0-0.2) 01/01/18 04:45 pCO2 61 mm/Hg (35-45) H 12/30/17 21:14 pO2 63 mm/Hg (80-100) L 12/30/17 21:14 HCO3 28.8 mmol/L (21-28) H 12/30/17 21:14 ABG pH 7.34 (7.35-7.45) L 12/30/17 21:14 ABG Total CO2 34.8 mmol/L (22-28) H 12/30/17 21:14 ABG O2 Saturation 95.9 % (95-98) 12/30/17 21:14 ABG O2 Content 17.5 ML/dL (15-23) 12/30/17 21:14 ABG Base Excess 5.2 mmol/L (-2.0-3.0) H 12/30/17 21:14 ABG Hemoglobin 14.0 g/dL (11.7-17.4) 12/30/17 21:14 ABG Carboxyhemoglobin 4.7 % (0.5-1.5) H 12/30/17 21:14 POC ABG HHb (Measured) 3.8 % (0.0-5.0) 12/30/17 21:14 ABG Methemoglobin 2.4 % (0.0-3.0) 12/30/17 21:14 ABG O2 Capacity 18.2 mL/dL (16-24) 12/30/17 21:14 Carlos Alberto Test Yes 12/30/17 21:14 A-a O2 Difference 117.0 mm/Hg 12/30/17 21:14 Hgb O2 Saturation 89.1 % (95.0-98.0) L 12/30/17 21:14 FiO2 36.0 % 12/30/17 21:14 Sodium 138 mmol/l (132-148) 01/01/18 04:45 Potassium 4.6 MMOL/L (3.6-5.0) 01/01/18 04:45 Chloride 98 mmol/L (98-107) 01/01/18 04:45 Carbon Dioxide 32 mmol/L (22-30) H 01/01/18 04:45 Anion Gap 13 (10-20) 01/01/18 04:45 BUN 18 mg/dl (9-20) 01/01/18 04:45 Creatinine 0.5 mg/dl (0.8-1.5) L 01/01/18 04:45 Est GFR ( Amer) > 60 01/01/18 04:45 Est GFR (Non-Af Amer) > 60 01/01/18 04:45 POC Glucose (mg/dL) 176 mg/dL (65-110) H 01/01/18 11:05 Random Glucose 139 mg/dL (75-110) H 01/01/18 04:45 Calcium 8.6 mg/dL (8.4-10.2) 01/01/18 04:45 Total Bilirubin 0.2 mg/dl (0.2-1.3) 12/30/17 19:36 AST 20 U/L (17-59) 12/30/17 19:36 ALT 20 U/L (21-72) L 12/30/17 19:36 Alkaline Phosphatase 68 U/L (38-126) 12/30/17 19:36 Total Protein 7.2 G/DL (6.3-8.2) 12/30/17 19:36 Albumin 3.7 g/dL (3.5-5.0) 12/30/17 19:36 Globulin 3.5 gm/dL (2.2-3.9) 12/30/17 19:36 Albumin/Globulin Ratio 1.1 (1.0-2.1) 12/30/17 19:36 - Hospital Course Hospital Course: 67 y/o homeless male with PMH COPD, active smoker presented with 3 day history of worsening dyspnea, cough and sputum production . Patient admitted for COPD exacerbation.Was admitted in telemetry , started on Solumedrol IV, Duonebs, Zithromax IV, Micinex , Tesalon pearls . CXR showed no active disease.pulmonary was consulted Patient clinically improved , back to his baseline. At present with no dyspnea, rhonchi bilateral on exam , minimal coufgh with scant sputum produiction Will discharge patient home today Patient is homeless and will be going [facility] Counselled on smoking cessation 1. COPD exacerbation improved d/c on Medrol pack , Advair and Albuterol PRN 2.Active smoker counselled patient 3.Cachetic BMI 19 Discharge Exam - Head Exam Head Exam: NORMAL INSPECTION, NORMOCEPHALIC - Eye Exam Eye Exam: EOMI, Normal appearance, PERRL Pupil Exam: NORMAL ACCOMODATION - ENT Exam ENT Exam: Mucous Membranes Moist, Normal Exam - Neck Exam Neck exam: Full Rom, Normal Inspection - Respiratory Exam Respiratory Exam: Rhonchi, NORMAL BREATHING PATTERN. absent: Wheezes, Respiratory Distress - Cardiovascular Exam Cardiovascular Exam: REGULAR RHYTHM, RRR, +S1, +S2. absent: JVD - GI/Abdominal Exam GI & Abdominal Exam: Normal Bowel Sounds, Soft. absent: Distended, Guarding, Rebound, Tenderness - Rectal Exam Rectal Exam: Deferred - Extremities Exam Extremities exam: normal capillary refill, normal inspection, pedal pulses present - Back Exam Back exam: NORMAL INSPECTION - Neurological Exam Neurological exam: Alert, CN II-XII Intact, Oriented x3 - Psychiatric Exam Psychiatric exam: Normal Affect - Skin Skin Exam: Dry, Intact, Normal Color, Warm Discharge Plan - Discharge Medications Prescriptions: Fluticasone/Salmeterol 500/50 [Advair Diskus 500/50] 1 puff IH Q12 #1 puff Methylprednisolone [Medrol Dose Pack (21 tabs)] 4 mg PO DAILY #21 mg - Follow Up Plan Condition: IMPROVED Disposition: HOME/ ROUTINE Patient education suggested?: Yes Instructions: Exacerbation of COPD (DC), Inhalers Referrals: [facility] [Outside]
[2018-01-03] MEDS ORDERED: Albuterol HFA 90 mcg/actuation (8 g) INH PRN (09:12)
[2018-01-03] MEDS ORDERED: Fluticasone-Salmeterol 500-50mcg Diskus IH SCH (09:15)
[2018-01-03] MEDS: Enoxaparin 40 mg Syringe SC SCH (09:47)
[2018-01-03] MEDS: guaiFENesin 600 mg ER Tab PO SCH (09:47)
[2018-01-03] MEDS: Azithromycin 250 MG in Sodium Chloride 0.9% 250 ML IVPB SCH (09:53)
[2018-01-03 09:57] VITALS: PULSE 61
== END 2018-01-03 10:40 | disposition home or self-care (01) | DRG 88 ==
LOC: H.ER 18:36 → H.ERHOLD 21:50 → H.ICU/CCU 12-31 04:51 → OBSVTOIN 01-01 11:37 → H.TEL 01-01 16:46
PROVIDERS: ADMIT Hospitalist; ATTEND Hospitalist
PROC: 3E0F7GC Introduction of Other Therapeutic Substance into Respiratory Tract, Via Natural or Artificial Opening (ICD-10-PCS; principal; 2017-12-31)
DX: J44.1 Chronic obstructive pulmonary disease with (acute) exacerbation (principal); R64 Cachexia; Z59.0 Homelessness; Z68.1 Body mass index [BMI] 19.9 or less, adult; Z79.02 Long term (current) use of antithrombotics/antiplatelets; Z79.82 Long term (current) use of aspirin; Z91.14 Patient's other noncompliance with medication regimen; M54.9 Dorsalgia, unspecified; R06.82 Tachypnea, not elsewhere classified; R09.89 Other specified symptoms and signs involving the circulatory and respiratory systems; F17.210 Nicotine dependence, cigarettes, uncomplicated

== ENCOUNTER 2018-01-08 17:18 | Emergency (ER) | payer SELFPAY ==
[2018-01-08 17:22] VITALS: BP 126/73; PULSE 104; TEMP 99.2
[2018-01-08 17:38] VITALS: RESP 22; O2SAT 98
[2018-01-08] MEDS ORDERED: Albuterol-Ipratrop 3 mg / 0.5 (3 ml) UD INH STA (18:03)
--- NOTE | 2018-01-08 18:18 | ED PDOC ---
HPI: SOB/CHF/COPD Time Seen by Provider: 01/08/18 17:38 Chief Complaint (Nursing): Shortness Of Breath Chief Complaint (Provider): SOB History Per: Patient History/Exam Limitations: no limitations Additional Complaint(s): Pt reports SOB and productive cough X 1 day. Denies CP, fever, palpitations. Has not taken medication at home. Past Medical History Reviewed: Nursing Documentation, Vital Signs Vital Signs: Last Vital Signs Temp 99.2 F 01/08/18 17:20 Pulse 104 H 01/08/18 17:20 Resp 22 01/08/18 17:35 BP 126/73 01/08/18 17:20 Pulse Ox 98 01/08/18 17:35 - Medical History PMH: Asthma, COPD Denies: HIV, Chronic Kidney Disease - Family History Family History: States: Unknown Family Hx - Social History Current smoker - smoking cessation education provided: Yes - Immunization History Hx Tetanus Toxoid Vaccination: No Hx Influenza Vaccination: No Hx Pneumococcal Vaccination: No - Home Medications Home Medications: Ambulatory Orders Medication Instructions Recorded Albuterol HFA [Ventolin HFA 90 1 puff INH RQ4 PRN inhaler 01/03/18 mcg/actuation (8 g)] Fluticasone/Salmeterol 500/50 1 puff IH Q12 #1 puff 01/03/18 [Advair Diskus 500/50] Methylprednisolone [Medrol Dose 4 mg PO DAILY #21 mg 01/03/18 Pack (21 tabs)] - Allergies Allergies/Adverse Reactions: Allergies Allergy/AdvReac Type Severity Reaction Status Date / Time No Known Allergies Allergy Verified 12/30/17 18:46 Review of Systems Constitutional: Negative for: Fever Cardiovascular: Negative for: Chest Pain, Palpitations Respiratory: Positive for: Cough, Shortness of Breath, Sputum, Wheezing Gastrointestinal: Negative for: Nausea, Vomiting, Abdominal Pain, Diarrhea Skin: Negative for: Rash, Lesions Neurological: Negative for: Headache, Dizziness Physical Exam - Reviewed Nursing Documentation Reviewed: Yes Vital Signs Reviewed: Yes - Physical Exam Appears: Positive for: Well, No Acute Distress (Speaking full sentences) Head Exam: Positive for: ATRAUMATIC, NORMAL INSPECTION Skin: Positive for: Normal Color, Warm, Dry Eye Exam: Positive for: Normal appearance, EOMI, PERRL Cardiovascular/Chest: Positive for: Regular Rate, Rhythm Respiratory: Positive for: Wheezing. Negative for: Decreased Breath Sounds, Accessory Muscle Use, Crackles, Rales, Stridor, Respiratory Distress Extremity: Positive for: Normal ROM Neurologic/Psych: Positive for: Alert, Oriented - Laboratory Results Result Diagrams: 01/08/18 18:38 01/08/18 18:38 - ECG O2 Sat by Pulse Oximetry: 98 Medical Decision Making Medical Decision Makin yo male with SOB and cough. - labs - EKG - CXR - Albuterol/atrovent nebs - Solumedrol Accession No. : [id number] Patient Name / ID : PEYMAN CROWDER / [id number] Exam Date : 01/08/2018 17:58:00 ( Approved ) Study Comment : Sex / Age : M / 60Y Creator : Austin Rodriguez MD Dictator : Austin Rodriguez MD E Learning Developer : External Grinder Tender : Austin Rodriguez MD Approver2 : Report Date : 01/08/2018 18:16:21 My Comment : Date of service: 01/08/2018 HISTORY: OD COMPARISON: Chest radiograph dated 08/07/2017. FINDINGS: LUNGS: No active pulmonary disease. PLEURA: No significant pleural effusion identified, no pneumothorax apparent. CARDIOVASCULAR: Aortic atherosclerotic calcifications. Cardiomediastinal silhouette stably prominent. OSSEOUS STRUCTURES: Unchanged. VISUALIZED UPPER ABDOMEN: Normal. OTHER FINDINGS: None. IMPRESSION: No active disease. 19:35 Notified by RN that patient removed his IV line and left ED. Disposition - Clinical Impression Clinical Impression: Dyspnea - Disposition Disposition: Left W/O Treatment Disposition Time: 19:36 Condition: UNKNOWN Forms: [employer] (Divehi)
[2018-01-08] MEDS ORDERED: Albuterol-Ipratrop 3 mg / 0.5 (3 ml) UD ONE (18:40)
[2018-01-08 18:42] LABS: BASO # 0.1 K/uL (0.0-0.2); BASO % 0.3 % (0.0-2.0); EOS # 0.8 K/uL (0.0-0.7); EOS % 4.4 % (0.0-4.0); HEMOGLOBIN 13.7 g/dL (12.0-18.0); LYMPH # 1.3 K/uL (1.0-4.3); LYMPH % 6.7 % (20.0-40.0); MEAN CELL VOLUME 91.5 fl (80.0-94.0); MEAN CORPUSCULAR HEMOGLOBIN 30.4 pg (27.0-31.0); MEAN CORPUSCULAR HGB CONC 33.3 g/dL (33.0-37.0); MEAN PLATELET VOLUME 8.2 fl (7.2-11.7); MONO # 1.8 K/uL (0.0-0.8); MONO % 9.4 % (0.0-10.0); NEUT # 15.2 K/uL (1.8-7.0); NEUT % 79.2 % (50.0-75.0); PLATELET COUNT 347 K/uL (130-400); RED CELL DISTRIBUTION WIDTH 14.3 % (11.5-14.5); WHITE BLOOD COUNT 19.2 K/uL (4.8-10.8)
[2018-01-08 18:47] LABS: INR 1.1; PROTHROMBIN TIME 12.5 Seconds (9.8-13.1)
[2018-01-08 18:49] LABS: PARTIAL THROMBOPLASTIN TIME 30.3 Seconds (25.6-37.1)
[2018-01-08 18:58] LABS: ALB/GLOB RATIO 1.1 (1.0-2.1); ALBUMIN 3.8 g/dL (3.5-5.0); ALT/SGPT 17 U/L (21-72); AST/SGOT 18 U/L (17-59); BLOOD UREA NITROGEN 18 mg/dl (9-20); CALCIUM 8.9 mg/dL (8.4-10.2); GFR NON-AFRICAN AMERICAN > 60
[2018-01-08 19:36] LABS: ANISOCYTOSIS SLIGHT; BANDS 1 % (0-2); EOSINOPHIL 4 % (0-7); GIANT PLATELETS PRESENT; LARGE PLATELETS PRESENT; LYMPHOCYTE 9 % (20-50); MONOCYTE 12 % (0-10); NEUTROPHIL 74 % (42-75); PLATELET ESTIMATE NORMAL (NORMAL); TOTAL CELLS COUNTED 100
--- NOTE | 2018-01-09 08:50 | CARD ---
APPROVED REPORT Date of service: 01/08/2018 EKG Measurement Heart [id number] <Conclusion> Normal sinus rhythm with sinus arrhythmia Otherwise normal ECG
== END 2018-01-08 20:03 | disposition left against medical advice (07) ==
LOC: H.ER 17:18
DX: R06.00 Dyspnea, unspecified (principal); F17.200 Nicotine dependence, unspecified, uncomplicated; J44.9 Chronic obstructive pulmonary disease, unspecified
CPT/HCPCS: 80053; 82948; 85025; 85610; 85730; 87040; 93005; 94640; 96374; 99283; J2930

== ENCOUNTER 2018-01-11 15:30 | Inpatient (IN) | payer SELFPAY ==
[2018-01-11] MEDS ORDERED: Albuterol-Ipratrop 3 mg / 0.5 (3 ml) UD IH STA ×4 (15:48→18:04)
--- NOTE | 2018-01-11 15:53 | ED PDOC ---
HPI: SOB/CHF/COPD Time Seen by Provider: 01/11/18 15:45 Chief Complaint (Nursing): Shortness Of Breath History Per: Patient Onset/Duration Of Symptoms: Days (2) Current Symptoms Are (Timing): Still Present Quality: Tightness Current Respiratory Medications: See Home Med List Severity: Moderate Associated Symptoms: denies: Fever Additional Complaint(s): SOB, wheezing and cough productive clear sputum. Denies fever. Non compliant with meds and has smoked until 4 days ago. Past Medical History Vital Signs: Last Vital Signs Temp 97.6 F 01/11/18 15:32 Pulse 96 H 01/11/18 15:32 Resp 16 01/11/18 15:32 BP 144/78 01/11/18 15:32 Pulse Ox 85 L 01/11/18 15:32 - Medical History PMH: Asthma, COPD Denies: HIV, Chronic Kidney Disease - Family History Family History: States: Unknown Family Hx - Immunization History Hx Tetanus Toxoid Vaccination: No Hx Influenza Vaccination: No Hx Pneumococcal Vaccination: No - Home Medications Home Medications: Ambulatory Orders Medication Instructions Recorded Albuterol HFA [Ventolin HFA 90 1 puff INH RQ4 PRN inhaler 01/03/18 mcg/actuation (8 g)] Fluticasone/Salmeterol 500/50 1 puff IH Q12 #1 puff 01/03/18 [Advair Diskus 500/50] Methylprednisolone [Medrol Dose 4 mg PO DAILY #21 mg 01/03/18 Pack (21 tabs)] Albuterol HFA [Ventolin HFA 90 2 puff IH Q4H #1 puff 01/11/18 mcg/actuation (8 g)] Prednisone 50 mg PO DAILY #5 tab 01/11/18 - Allergies Allergies/Adverse Reactions: Allergies Allergy/AdvReac Type Severity Reaction Status Date / Time No Known Allergies Allergy Verified 01/11/18 15:32 Review of Systems ROS Statement: Except As Marked, All Systems Reviewed And Found Negative Constitutional: Negative for: Fever Respiratory: Positive for: Cough, Shortness of Breath, Wheezing Physical Exam - Reviewed Nursing Documentation Reviewed: Yes Vital Signs Reviewed: Yes - Physical Exam Appears: Positive for: Non-toxic, No Acute Distress Head Exam: Positive for: ATRAUMATIC, NORMAL INSPECTION, NORMOCEPHALIC Skin: Positive for: Normal Color, Warm, DRY Eye Exam: Positive for: EOMI, Normal appearance, PERRL ENT: Positive for: Normal ENT Inspection Neck: Positive for: Normal, Painless ROM Cardiovascular/Chest: Positive for: Regular Rate, Rhythm Respiratory: Positive for: Rhonchi, Wheezing. Negative for: Respiratory Distress Gastrointestinal/Abdominal: Positive for: Normal Exam, Soft Back: Positive for: Normal Inspection Extremity: Positive for: Normal ROM Neurologic/Psych: Positive for: Alert, Oriented - ECG O2 Sat by Pulse Oximetry: 85 - Progress Re-evaluation Time: 17:18 Condition: Improved (Feels better, scattered rhonchi no wheezing. O2 sat 94-95%) Medical Decision Making Medical Decision Making: Discussed importance of compliance with prescribed meds and abstinence from cigarette smoking Disposition - Clinical Impression Clinical Impression: COPD exacerbation - Patient ED Disposition Is Patient to be Admitted: No - Disposition Referrals: [facility] [Outside] Disposition: Routine/Home Disposition Time: 17:20 Condition: FAIR Prescriptions: Albuterol HFA [Ventolin HFA 90 mcg/actuation (8 g)] 2 puff IH Q4H #1 puff Prednisone 50 mg PO DAILY #5 tab Instructions: Exacerbation of COPD Forms: [facility] (Surinamese) Print Language: LATVIAN
--- NOTE | 2018-01-11 16:41 | RAD ---
Date of service: 01/11/2018 HISTORY: cough COMPARISON: Chest radiographs 12/31/2017. TECHNIQUE: Chest PA and lateral FINDINGS: LUNGS: No active pulmonary disease. Stable pattern of hyperinflation and COPD reiterated. PLEURA: No significant pleural effusion identified. No pneumothorax apparent. CARDIOVASCULAR: Calcific atherosclerotic changes are seen related to the thoracic aorta. Normal cardiac size. No pulmonary vascular congestion. OSSEOUS STRUCTURES: No significant abnormalities. VISUALIZED UPPER ABDOMEN: Normal. OTHER FINDINGS: None. IMPRESSION: Stable COPD pattern. No acute infiltrate, pleural effusion or pneumothorax identified.
[2018-01-11] MEDS ORDERED: Albuterol-Ipratrop 3 mg / 0.5 (3 ml) UD ONE (17:51)
[2018-01-11] MEDS ORDERED: Sodium Chloride 3% for Inhalation 4 ML VIAL.NEB IH PRN (19:13)
[2018-01-11 20:01] LABS: BASO # 0.1 K/uL (0.0-0.2); BASO % 0.7 % (0.0-2.0); EOS # 1.5 K/uL (0.0-0.7); EOS % 8.8 % (0.0-4.0); HEMOGLOBIN 13.3 g/dL (12.0-18.0); LYMPH # 1.5 K/uL (1.0-4.3); LYMPH % 9.1 % (20.0-40.0); MEAN CELL VOLUME 93.4 fl (80.0-94.0); MEAN CORPUSCULAR HEMOGLOBIN 29.8 pg (27.0-31.0); MEAN CORPUSCULAR HGB CONC 31.9 g/dL (33.0-37.0); MEAN PLATELET VOLUME 8.2 fl (7.2-11.7); MONO # 1.7 K/uL (0.0-0.8); NEUT # 12.1 K/uL (1.8-7.0); NEUT % 71.4 % (50.0-75.0); NRBC % 0.1 % (0.0-0.0); PLATELET COUNT 427 K/uL (130-400); RBC 4.48 Mil/uL (4.40-5.90); RED CELL DISTRIBUTION WIDTH 14.9 % (11.5-14.5)
[2018-01-11 20:24] LABS: EOSINOPHIL 13 % (0-7); LYMPHOCYTE 8 % (20-50); MONOCYTE 6 % (0-10); NEUTROPHIL 73 % (42-75); TOTAL CELLS COUNTED 100
[2018-01-11 20:26] LABS: PLATELET ESTIMATE INCREASED (NORMAL)
[2018-01-11 20:27] LABS: ANISOCYTOSIS SLIGHT; OVALOCYTES SLIGHT
[2018-01-11 20:32] LABS: ALB/GLOB RATIO 1.2 (1.0-2.1); ALBUMIN 3.6 g/dL (3.5-5.0); ALT/SGPT 22 U/L (21-72); AST/SGOT 19 U/L (17-59); BLOOD UREA NITROGEN 16 mg/dl (9-20); CALCIUM 8.5 mg/dL (8.4-10.2); GFR NON-AFRICAN AMERICAN > 60
[2018-01-11] MEDS ORDERED: methylPREDNISolone 40 MG in Sodium Chloride 0.9% 50 ML IVPB SCH (22:00)
[2018-01-11] MEDS ORDERED: Albuterol-Ipratrop 3 mg / 0.5 (3 ml) UD NEB SCH (22:00)
[2018-01-11] MEDS: MethylPREDNISolone 40 mg Vial IVP SCH (22:56)
[2018-01-12] MEDS: MethylPREDNISolone 40 mg Vial IVP SCH (03:45)
[2018-01-12 05:40] LABS: BASO % 0.2 % (0.0-2.0); HEMOGLOBIN 13.4 g/dL (12.0-18.0); LYMPH # 0.5 K/uL (1.0-4.3); LYMPH % 4.2 % (20.0-40.0); MEAN CELL VOLUME 94.1 fl (80.0-94.0); MEAN CORPUSCULAR HEMOGLOBIN 30.1 pg (27.0-31.0); MEAN CORPUSCULAR HGB CONC 31.9 g/dL (33.0-37.0); MONO # 0.1 K/uL (0.0-0.8); MONO % 1.1 % (0.0-10.0); NEUT # 10.9 K/uL (1.8-7.0); NEUT % 94.5 % (50.0-75.0); PLATELET COUNT 429 K/uL (130-400); RBC 4.45 Mil/uL (4.40-5.90); RED CELL DISTRIBUTION WIDTH 14.3 % (11.5-14.5); WHITE BLOOD COUNT 11.5 K/uL (4.8-10.8)
[2018-01-12 05:43] LABS: ALB/GLOB RATIO 1.1 (1.0-2.1); ALBUMIN 3.3 g/dL (3.5-5.0); ALT/SGPT 19 U/L (21-72); AST/SGOT 11 U/L (17-59); BLOOD UREA NITROGEN 13 mg/dl (9-20); CALCIUM 8.5 mg/dL (8.4-10.2); GFR NON-AFRICAN AMERICAN > 60
[2018-01-12 08:25] LABS: LYMPHOCYTE 6 % (20-50); MONOCYTE 2 % (0-10); NEUTROPHIL 92 % (42-75); PLATELET ESTIMATE SLIGHTLY INCREASED (NORMAL); TOTAL CELLS COUNTED 100
[2018-01-12 08:28] LABS: HYPERSEGMENTATION PRESENT; OVALOCYTES SLIGHT; TEARDROP CELLS SLIGHT
[2018-01-12] MEDS: Promethazine 12.5 mg/10 ml Syrup PO SCH ×3 (10:15→21:44)
--- NOTE | 2018-01-12 11:02 | CP.PCM.HP ---
<AinsleyKrystian - Last Filed: 01/12/18 10:51> History of Present Illness - History of Present Illness History of Present Illness: 67 y/o M with a PMHx of COPD presented to ED complaining of worsening dyspnea. Oxygen saturation was 85-88% range despite 4 Duonebs and PO prednisone -Pt was recently discharged on 01/03/18 from this hospital due to COPD exacerbation. Pt was d/c'ed with Rx for Medrol pack , Advair and Albuterol PRN. Pt did not take any medications at home since he is homeless and have no money to buy meds. -Today, pt was evaluated and examined with Dr Chadwick by bedside. Pt reports feeling better but still has shortness of breath, coughing a rogerio of phlegm as per patient. Pt tolerating PO and afebrile. PMH: COPD Medications: none Allergies: NKDA Social: current smoker: 1 pack per day, no etoh use Surgical: right hernia repair. Present on Admission - Present on Admission Any Indicators Present on Admission: No Review of Systems - Constitutional Constitutional: absent: Chills, Fever - EENT Eyes: absent: Pain Nose/Mouth/Throat: absent: Nasal Congestion, Nasal Discharge, Hoarsness, Sore Throat, Neck Pain - Cardiovascular Cardiovascular: absent: Chest Pain - Respiratory Respiratory: Cough, Dyspnea - Gastrointestinal Gastrointestinal: absent: Abdominal Pain, Bloating, Change in Bowel Habits, Nausea, Vomiting - Genitourinary Genitourinary: absent: Dysuria, Hematuria, Pyuria, Nocturia Past Patient History - Infectious Disease Hx of Infectious Diseases: None - Past Medical History & Family History Past Medical History?: Yes - Past Social History Smoking Status: Former Smoker - CARDIAC Hx Cardiac Disorders: Yes (IN, HTN, hypercholesterolemia) Hx Heart Attack: Yes Hx Hypercholesterolemia: Yes Hx Hypertension: Yes - PULMONARY Hx Respiratory Disorders: Yes (COPD, asthma) Hx Asthma: Yes Hx Chronic Obstructive Pulmonary Disease (COPD): Yes - NEUROLOGICAL Hx Neurological Disorder: No - HEENT Hx HEENT Problems: No - RENAL Hx Chronic Kidney Disease: No - ENDOCRINE/METABOLIC Hx Endocrine Disorders: No - HEMATOLOGICAL/ONCOLOGICAL Hx Blood Disorders: No - INTEGUMENTARY Hx Dermatological Problems: No - MUSCULOSKELETAL/RHEUMATOLOGICAL Hx Musculoskeletal Disorders: No Hx Falls: No - GASTROINTESTINAL Hx Gastrointestinal Disorders: No - GENITOURINARY/GYNECOLOGICAL Hx Genitourinary Disorders: No - PSYCHIATRIC Hx Psychophysiologic Disorder: No Hx Substance Use: No - SURGICAL HISTORY Hx Surgeries: Yes Hx Herniorrhaphy: Yes - ANESTHESIA Hx Anesthesia: Yes Hx Anesthesia Reactions: No Hx Malignant Hyperthermia: No Has any member of the family had a problem w/ anesthesia?: No Meds Allergies/Adverse Reactions: Allergies Allergy/AdvReac Type Severity Reaction Status Date / Time No Known Allergies Allergy Verified 01/11/18 15:32 Physical Exam - Constitutional Appears: No Acute Distress - Head Exam Head Exam: ATRAUMATIC, NORMAL INSPECTION - Eye Exam Eye Exam: EOMI - ENT Exam ENT Exam: Mucous Membranes Dry - Neck Exam Neck exam: Positive for: Full Rom. Negative for: Meningismus - Respiratory Exam Respiratory Exam: Rales, Rhonchi, Wheezes. absent: Respiratory Distress - Cardiovascular Exam Cardiovascular Exam: +S1, +S2 - GI/Abdominal Exam GI & Abdominal Exam: Normal Bowel Sounds, Soft. absent: Distended, Tenderness - Extremities Exam Extremities exam: Positive for: full ROM, normal inspection. Negative for: calf tenderness - Back Exam Back exam: absent: CVA tenderness (L), CVA tenderness (R) - Neurological Exam Neurological exam: Alert, Oriented x3 Results - Vital Signs Recent Vital Signs: Last Vital Signs Temp 97.5 F L 01/12/18 08:00 Pulse 59 L 01/12/18 09:00 Resp 18 01/12/18 08:00 BP 134/75 01/12/18 08:00 Pulse Ox 93 L 01/12/18 08:00 - Labs Result Diagrams: 01/12/18 04:20 01/12/18 04:20 Labs: Laboratory Results - last 24 hr 01/11/18 01/11/18 01/11/18 19:25 19:25 20:20 WBC 17.0 H RBC 4.48 Hgb 13.3 Hct 41.9 MCV 93.4 MCH 29.8 MCHC 31.9 L RDW 14.9 H Plt Count 427 H MPV 8.2 Neut % (Auto) 71.4 Lymph % (Auto) 9.1 L Isabela % (Auto) 10.0 Eos % (Auto) 8.8 H Baso % (Auto) 0.7 Neut # (Auto) 12.1 H Lymph # (Auto) 1.5 Isabela # (Auto) 1.7 H Eos # (Auto) 1.5 H Baso # (Auto) 0.1 Neutrophils % (Manual) 73 Lymphocytes % (Manual) 8 L Monocytes % (Manual) 6 Eosinophils % (Manual) 13 H Hypersegmented Polys Platelet Estimate Increased H Anisocytosis (manual) Slight Tear Drop Cells Ovalocytes Slight Sodium 141 Potassium 4.3 Chloride 102 Carbon Dioxide 31 H Anion Gap 12 BUN 16 Creatinine 0.6 L Est GFR ( Amer) > 60 Est GFR (Non-Af Amer) > 60 Random Glucose 96 Calcium 8.5 Total Bilirubin 0.2 AST 19 ALT 22 Alkaline Phosphatase 83 Total Protein 6.6 Albumin 3.6 Globulin 3.0 Albumin/Globulin Ratio 1.2 Influenza Typ A,B (EIA) Negative for flu a/b 01/12/18 01/12/18 04:20 04:20 WBC 11.5 H RBC 4.45 Hgb 13.4 Hct 41.9 MCV 94.1 H MCH 30.1 MCHC 31.9 L RDW 14.3 Plt Count 429 H MPV 8.0 Neut % (Auto) 94.5 H Lymph % (Auto) 4.2 L Isabela % (Auto) 1.1 Eos % (Auto) 0.0 Baso % (Auto) 0.2 Neut # (Auto) 10.9 H Lymph # (Auto) 0.5 L Isabela # (Auto) 0.1 Eos # (Auto) 0.0 Baso # (Auto) 0.0 Neutrophils % (Manual) 92 H Lymphocytes % (Manual) 6 L Monocytes % (Manual) 2 Eosinophils % (Manual) Hypersegmented Polys Present Platelet Estimate Slightly increased H Anisocytosis (manual) Tear Drop Cells Slight Ovalocytes Slight Sodium 137 Potassium 4.3 Chloride 101 Carbon Dioxide 31 H Anion Gap 9 L BUN 13 Creatinine 0.4 L Est GFR ( Amer) > 60 Est GFR (Non-Af Amer) > 60 Random Glucose 147 H Calcium 8.5 Total Bilirubin 0.3 AST 11 L D ALT 19 L Alkaline Phosphatase 70 Total Protein 6.3 Albumin 3.3 L Globulin 3.0 Albumin/Globulin Ratio 1.1 Influenza Typ A,B (EIA) Assessment & Plan - Assessment and Plan (Free Text) Assessment: 67 y/o M with a PMHx of COPD is admitted for dyspnea and oxygen desaturation due to COPD exacerbation. -CXR with stable COPD pattern, no new changes. PLAN: --Still wheezing and ronchi on auscultation. --Oxygen by inhalation --Sputum culture --Duoneb QID --Solu-Medrol 60mg Q6H --Phenergan --Saline by inhalation --Physical therapy. --SCD --Continue management as ordered. Case discussed with Dr Chadwick. TOÑO Antonio PGY-2 - Date & Time Date: 01/12/18 Time: 07:07 <Eleazar Chadwick - Last Filed: 01/16/18 07:04> Results - Vital Signs Recent Vital Signs: Last Vital Signs Temp 97.6 F 01/16/18 01:12 Pulse 68 01/16/18 01:12 Resp 20 01/16/18 01:12 BP 146/77 01/16/18 01:12 Pulse Ox 95 01/16/18 01:12 - Labs Result Diagrams: 01/14/18 05:10 01/14/18 05:10 Labs: Laboratory Results - last 24 hr 01/15/18 19:07 C. difficile Ag & Toxin Negative Assessment & Plan - Assessment and Plan (Free Text) Assessment: Patient was personally seen and examined by me in rounds with residents. Available labs and diagnostic data reviewed. Case, Patient's condition and management plan discussed with residents in rounds. Agree with resident's progress note. Plan: As ordered.
[2018-01-12] MEDS: Albuterol-Ipratrop 3 mg / 0.5 (3 ml) UD NEB SCH ×3 (11:13→19:11)
[2018-01-13] MEDS: Promethazine 12.5 mg/10 ml Syrup PO SCH ×4 (04:58→21:08)
[2018-01-13] MEDS: Albuterol-Ipratrop 3 mg / 0.5 (3 ml) UD NEB SCH ×4 (08:40→19:03)
[2018-01-13] MEDS: Enoxaparin 40 mg Syringe SC SCH (11:00)
[2018-01-13] MEDS ORDERED: Acetylcysteine 10% 30 ML IH SCH (11:00)
[2018-01-13] MEDS: Pantoprazole 40 mg EC Tab PO SCH (11:00)
--- NOTE | 2018-01-13 11:18 | CP.PCM.PCO ---
Assessment & Plan - Assessment and Plan (Free Text) Assessment: pt. with c/o cough, congestion, denies cp, fever or chills Lungs scatterred wheezing/ ronchi b/L pt. failed observation tx- cont. with solumedrol iv taper, add zithromax 500 mg ivpb daily sputum cx, blood cx f/u cbc, bmp in am tsf to Med/Surg
[2018-01-13] MEDS: Azithromycin 500 MG in Sodium Chloride 0.9% 250 ML IVPB SCH (12:00)
[2018-01-13] MEDS: MethylPREDNISolone 40 mg Vial IVP SCH ×3 (12:40→23:09)
--- NOTE | 2018-01-13 16:00 | CP.PCM.PN ---
Subjective - Date & Time of Evaluation Date of Evaluation: 01/13/18 Time of Evaluation: 11:00 - Subjective Subjective: 67 y/o M was seen and examined by bedside with Dr Jimenez. pt reports feeling OK, still has mild shortness of breath. Pt aferbile, tolerating Po, with NO acute events overnight. Objective - Vital Signs/Intake and Output Vital Signs (last 24 hours): Temp Pulse Resp BP Pulse Ox 97.6 F 73 18 112/68 98 01/13/18 12:52 01/13/18 12:52 01/13/18 12:52 01/13/18 12:52 01/13/18 12:52 - Medications Medications: Current Medications Acetylcysteine (Mucomyst 10% 30 Ml) 3 ml IH Q8 [facility] Albuterol/Ipratropium (Duoneb 3 Mg/0.5 Mg (3 Ml) Ud) 3 ml NEB RQID [facility] Last Admin: 01/13/18 15:23 Dose: 3 ml Enoxaparin Sodium (Lovenox) 40 mg SC DAILY [facility]; Protocol Last Admin: 01/13/18 11:00 Dose: 40 mg Azithromycin 500 mg/ Sodium (Chloride) 250 mls @ 250 mls/hr IVPB DAILY [facility]; Protocol Last Admin: 01/13/18 12:00 Dose: 250 mls/hr Methylprednisolone (Solu-Medrol) 40 mg IVP Q6 [facility] Last Admin: 01/13/18 12:40 Dose: Not Given Pantoprazole Sodium (Protonix Ec Tab) 40 mg PO DAILY [facility] Last Admin: 01/13/18 11:00 Dose: 40 mg Promethazine HCl (Phenergan Syrup) 12.5 mg PO Q6 [facility] Last Admin: 01/13/18 09:53 Dose: 12.5 mg - Labs Labs: 01/12/18 04:20 01/12/18 04:20 - Constitutional Appears: No Acute Distress - Head Exam Head Exam: ATRAUMATIC, NORMAL INSPECTION - Eye Exam Eye Exam: EOMI - ENT Exam ENT Exam: Mucous Membranes Moist - Neck Exam Neck Exam: Full ROM. absent: Lymphadenopathy, Meningismus - Respiratory Exam Respiratory Exam: Rhonchi, Wheezes, NORMAL BREATHING PATTERN. absent: Accessory Muscle Use, Chest Wall Tenderness, Respiratory Distress - Cardiovascular Exam Cardiovascular Exam: +S1, +S2 - GI/Abdominal Exam GI & Abdominal Exam: Soft. absent: Firm, Guarding, Tenderness - Extremities Exam Extremities Exam: Normal Inspection. absent: Calf Tenderness, Pedal Edema - Back Exam Back Exam: absent: CVA tenderness (L), CVA tenderness (R) - Neurological Exam Neurological Exam: Alert, Awake Assessment and Plan - Assessment and Plan (Free Text) Assessment: 67 y/o M with a PMHx of COPD is admitted for dyspnea and oxygen desaturation due to COPD exacerbation. -CXR with stable COPD pattern, no new changes. PLAN: --Still wheezing on auscultation. --Mucomist Q8H --F/U Sputum culture --Duoneb QID --Solu-Medrol 40mg Q6H --Phenergan --Saline by inhalation --Physical therapy. --SCD --Continue management as ordered. Case discussed with Dr Jimenez.
[2018-01-13] MEDS: Acetylcysteine 10% 4 ML IH SCH (19:03)
[2018-01-14] MEDS: Acetylcysteine 10% 4 ML IH SCH ×3 (00:55→15:40)
[2018-01-14] MEDS: Promethazine 12.5 mg/10 ml Syrup PO SCH ×4 (05:18→21:08)
[2018-01-14] MEDS: MethylPREDNISolone 40 mg Vial IVP SCH ×3 (05:18→16:06)
[2018-01-14 05:45] LABS: HEMOGLOBIN 13.5 g/dL (12.0-18.0); MEAN CELL VOLUME 91.9 fl (80.0-94.0); MEAN CORPUSCULAR HEMOGLOBIN 30.3 pg (27.0-31.0); RBC 4.44 Mil/uL (4.40-5.90); RED CELL DISTRIBUTION WIDTH 14.7 % (11.5-14.5); WHITE BLOOD COUNT 14.2 K/uL (4.8-10.8)
[2018-01-14 06:07] LABS: BLOOD UREA NITROGEN 18 mg/dl (9-20); CALCIUM 8.7 mg/dL (8.4-10.2); GFR NON-AFRICAN AMERICAN > 60
[2018-01-14] MEDS: Albuterol-Ipratrop 3 mg / 0.5 (3 ml) UD NEB SCH ×4 (07:33→19:10)
[2018-01-14] MEDS: Enoxaparin 40 mg Syringe SC SCH (08:36)
[2018-01-14] MEDS: Azithromycin 500 MG in Sodium Chloride 0.9% 250 ML IVPB SCH (08:36)
[2018-01-14] MEDS: Pantoprazole 40 mg EC Tab PO SCH (08:37)
--- NOTE | 2018-01-14 14:23 | CP.PCM.PN ---
Subjective - Date & Time of Evaluation Date of Evaluation: 01/14/18 Time of Evaluation: 10:00 - Subjective Subjective: 67 y/o M was seen and examined by bedside with Dr Jimenez. Pt reports reports his SOB is slowly improving. Pt aferbile, tolerating PO, with NO acute events overnight. Objective - Vital Signs/Intake and Output Vital Signs (last 24 hours): Temp Pulse Resp BP Pulse Ox 97.5 F L 68 20 127/60 94 L 01/14/18 13:00 01/14/18 13:00 01/14/18 13:00 01/14/18 13:00 01/14/18 13:00 - Medications Medications: Current Medications Acetylcysteine (Mucomyst 10% 4ml) 3 ml IH Q8 [facility] Last Admin: 01/14/18 07:32 Dose: 3 ml Albuterol/Ipratropium (Duoneb 3 Mg/0.5 Mg (3 Ml) Ud) 3 ml NEB RQID [facility] Last Admin: 01/14/18 11:27 Dose: 3 ml Enoxaparin Sodium (Lovenox) 40 mg SC DAILY [facility]; Protocol Last Admin: 01/14/18 08:36 Dose: 40 mg Azithromycin 500 mg/ Sodium (Chloride) 250 mls @ 250 mls/hr IVPB DAILY [facility]; Protocol Last Admin: 01/14/18 08:36 Dose: 250 mls/hr Methylprednisolone (Solu-Medrol) 40 mg IVP Q8 [facility] Pantoprazole Sodium (Protonix Ec Tab) 40 mg PO DAILY [facility] Last Admin: 01/14/18 08:37 Dose: 40 mg Promethazine HCl (Phenergan Syrup) 12.5 mg PO Q6 [facility] Last Admin: 01/14/18 10:17 Dose: 12.5 mg - Labs Labs: 01/14/18 05:10 01/14/18 05:10 - Additional Findings Additional findings: - Constitutional Appears: No Acute Distress - Head Exam Head Exam: ATRAUMATIC, NORMAL INSPECTION - Eye Exam Eye Exam: EOMI - ENT Exam ENT Exam: Mucous Membranes Moist - Neck Exam Neck Exam: Full ROM. absent: Lymphadenopathy, Meningismus - Respiratory Exam Respiratory Exam: Rhonchi, Wheezes, NORMAL BREATHING PATTERN. absent: Accessory Muscle Use, Chest Wall Tenderness, Respiratory Distress - Cardiovascular Exam Cardiovascular Exam: +S1, +S2 - GI/Abdominal Exam GI & Abdominal Exam: Soft. absent: Firm, Guarding, Tenderness - Extremities Exam Extremities Exam: Normal Inspection. absent: Calf Tenderness, Pedal Edema - Back Exam Back Exam: absent: CVA tenderness (L), CVA tenderness (R) - Neurological Exam Neurological Exam: Alert, Awake Assessment and Plan - Assessment and Plan (Free Text) Assessment: 67 y/o M with a PMHx of COPD is admitted for dyspnea and oxygen desaturation due to COPD exacerbation. PLAN: --Still symptomatic, wheezing on auscultation. No improvement despite treatment. --Pt clinical stable to be transferred to Med-Surg. --Azithromycin IV daily. --F/U Sputum culture with NO growth . --F/U second suputm culture. --Duoneb QID --Solu-Medrol 40mg Q6H --SCD --Continue management as ordered. Case discussed with Dr Jimenez who agrees with the above TOÑO Antonio PGY-2
[2018-01-15] MEDS: Acetylcysteine 10% 4 ML IH SCH ×3 (00:10→15:58)
[2018-01-15] MEDS: MethylPREDNISolone 40 mg Vial IVP SCH ×3 (00:12→16:32)
[2018-01-15] MEDS: Promethazine 12.5 mg/10 ml Syrup PO SCH ×4 (04:13→21:42)
[2018-01-15] MEDS: Albuterol-Ipratrop 3 mg / 0.5 (3 ml) UD NEB SCH ×4 (07:59→19:32)
[2018-01-15] MEDS: Azithromycin 500 MG in Sodium Chloride 0.9% 250 ML IVPB SCH (08:39)
[2018-01-15] MEDS: Pantoprazole 40 mg EC Tab PO SCH (08:40)
[2018-01-15] MEDS: Enoxaparin 40 mg Syringe SC SCH (08:40)
--- NOTE | 2018-01-15 12:19 | CP.PCM.PN ---
Subjective - Date & Time of Evaluation Date of Evaluation: 01/15/18 Time of Evaluation: 09:00 - Subjective Subjective: 67 y/o m seen and examined by bedside with Dr Jimenez. Pt reports reports feeling better, cough has subsidized and SOB has improved Pt afebrile, tolerating PO, with NO acute events overnight. Objective - Vital Signs/Intake and Output Vital Signs (last 24 hours): Temp Pulse Resp BP Pulse Ox 97.8 F 61 20 141/76 94 L 01/15/18 09:00 01/15/18 09:00 01/15/18 09:00 01/15/18 09:00 01/15/18 09:00 - Medications Medications: Current Medications Acetylcysteine (Mucomyst 10% 4ml) 3 ml IH Q8 [facility] Last Admin: 01/15/18 07:59 Dose: 3 ml Albuterol/Ipratropium (Duoneb 3 Mg/0.5 Mg (3 Ml) Ud) 3 ml NEB RQID [facility] Last Admin: 01/15/18 11:37 Dose: 3 ml Enoxaparin Sodium (Lovenox) 40 mg SC DAILY [facility]; Protocol Last Admin: 01/15/18 08:40 Dose: 40 mg Methylprednisolone (Solu-Medrol) 40 mg IVP Q8 [facility] Last Admin: 01/15/18 08:40 Dose: 40 mg Pantoprazole Sodium (Protonix Ec Tab) 40 mg PO DAILY [facility] Last Admin: 01/15/18 08:40 Dose: 40 mg Promethazine HCl (Phenergan Syrup) 12.5 mg PO Q6 [facility] Last Admin: 01/15/18 09:07 Dose: 12.5 mg - Labs Labs: 01/14/18 05:10 01/14/18 05:10 - Additional Findings Additional findings: - Constitutional Appears: No Acute Distress - Head Exam Head Exam: ATRAUMATIC, NORMAL INSPECTION - Eye Exam Eye Exam: EOMI - ENT Exam ENT Exam: Mucous Membranes Moist - Neck Exam Neck Exam: Full ROM. absent: Lymphadenopathy, Meningismus - Respiratory Exam Respiratory Exam: Rhonchi, Wheezes diffusely NORMAL BREATHING PATTERN. absent: Accessory Muscle Use, Chest Wall Tenderness, Respiratory Distress - Cardiovascular Exam Cardiovascular Exam: +S1, +S2 - GI/Abdominal Exam GI & Abdominal Exam: Soft. absent: Firm, Guarding, Tenderness - Extremities Exam Extremities Exam: Normal Inspection. absent: Calf Tenderness, Pedal Edema - Back Exam Back Exam: absent: CVA tenderness (L), CVA tenderness (R) - Neurological Exam Neurological Exam: Alert, Awake Assessment and Plan - Assessment and Plan (Free Text) Assessment: 67 y/o M with a PMHx of COPD is admitted for dyspnea and oxygen desaturation due to COPD exacerbation. PLAN: --Still wheezing on auscultation. No improvement despite treatment. --Will be transferred to Med-Surg. --D/C Azithromycin IV daily. --Sputum culture with NO growth . --Duoneb QID --Solu-Medrol 40mg Q6H --SCD --Continue management as ordered. Case discussed with Dr Jimenez who agrees with the above TOÑO Antonio PGY-2
[2018-01-16] MEDS: MethylPREDNISolone 40 mg Vial IVP SCH ×3 (01:38→17:29)
[2018-01-16] MEDS: Acetylcysteine 10% 4 ML IH SCH ×2 (03:33→08:02)
[2018-01-16] MEDS: Promethazine 12.5 mg/10 ml Syrup PO SCH ×4 (03:56→22:12)
[2018-01-16 07:53] LABS: HEMOGLOBIN 14.4 g/dL (12.0-18.0); MEAN CELL VOLUME 91.4 fl (80.0-94.0); MEAN CORPUSCULAR HGB CONC 32.9 g/dL (33.0-37.0); RBC 4.81 Mil/uL (4.40-5.90); RED CELL DISTRIBUTION WIDTH 14.4 % (11.5-14.5); WHITE BLOOD COUNT 11.5 K/uL (4.8-10.8)
[2018-01-16 07:56] LABS: ALB/GLOB RATIO 1.1 (1.0-2.1); ALBUMIN 3.2 g/dL (3.5-5.0); ALT/SGPT 23 U/L (21-72); AST/SGOT 14 U/L (17-59); BLOOD UREA NITROGEN 17 mg/dl (9-20); CALCIUM 8.8 mg/dL (8.4-10.2); GFR NON-AFRICAN AMERICAN > 60
[2018-01-16] MEDS: Albuterol-Ipratrop 3 mg / 0.5 (3 ml) UD NEB SCH ×4 (08:02→20:01)
[2018-01-16] MEDS ORDERED: Albuterol 0.083% Inhal Sol (2.5 mg/3 mL) UD INH SCH (09:42)
[2018-01-16] MEDS: Enoxaparin 40 mg Syringe SC SCH (09:47)
[2018-01-16] MEDS: Pantoprazole 40 mg EC Tab PO SCH (09:48)
[2018-01-16] MEDS ORDERED: Albuterol 0.083% Inhal Sol (2.5 mg/3 mL) UD INH PRN (09:56)
[2018-01-17] MEDS: MethylPREDNISolone 40 mg Vial IVP SCH ×3 (00:59→16:03)
[2018-01-17] MEDS: Promethazine 12.5 mg/10 ml Syrup PO SCH ×4 (04:17→23:00)
[2018-01-17] MEDS: Albuterol-Ipratrop 3 mg / 0.5 (3 ml) UD NEB SCH ×4 (08:02→19:09)
[2018-01-17] MEDS: Enoxaparin 40 mg Syringe SC SCH (08:39)
[2018-01-17] MEDS: Pantoprazole 40 mg EC Tab PO SCH (08:40)
--- NOTE | 2018-01-17 16:03 | RAD ---
Date of service: 01/17/2018 HISTORY: cough COMPARISON: 01/11/2018 TECHNIQUE: Chest PA and lateral FINDINGS: LUNGS: There is mild interval improvement in aeration with decrease in interstitial markings from the recent exam. This may suggest decreased congestion or inflammatory change. No new infiltrate is identified. Trachea is midline. No hilar enlargement is seen. No effusion is noted. PLEURA: No significant pleural effusion identified. No pneumothorax apparent. CARDIOVASCULAR: Mild atherosclerotic calcification noted. Normal cardiac size. No pulmonary vascular congestion. OSSEOUS STRUCTURES: No significant abnormalities. VISUALIZED UPPER ABDOMEN: Normal. OTHER FINDINGS: None. IMPRESSION: Interval improvement in aeration with decrease in diffuse interstitial markings are congestion.
[2018-01-18] MEDS: MethylPREDNISolone 40 mg Vial IVP SCH ×2 (02:00→10:50)
[2018-01-18] MEDS: Promethazine 12.5 mg/10 ml Syrup PO SCH ×2 (04:55→10:50)
[2018-01-18] MEDS: Albuterol-Ipratrop 3 mg / 0.5 (3 ml) UD NEB SCH ×2 (07:29→11:33)
[2018-01-18 09:01] VITALS: BP 139/80; PULSE 85; RESP 19; TEMP 97.5; O2SAT 93
[2018-01-18] MEDS: Pantoprazole 40 mg EC Tab PO SCH (10:50)
[2018-01-18] MEDS: Enoxaparin 40 mg Syringe SC SCH (10:50)
== END 2018-01-18 13:25 | disposition home or self-care (01) | DRG 140 ==
LOC: H.ER 15:30 → H.ERHOLD 18:47 → H.TEL 21:23 → OBSVTOIN 01-13 10:44 → H.MEDSURG1 01-16 00:56
PROVIDERS: ADMIT Family Medicine; ATTEND Family Medicine
PROC: 3E0F7GC Introduction of Other Therapeutic Substance into Respiratory Tract, Via Natural or Artificial Opening (ICD-10-PCS; principal; 2018-01-12)
DX: J44.1 Chronic obstructive pulmonary disease with (acute) exacerbation (principal); I10 Essential (primary) hypertension; F17.210 Nicotine dependence, cigarettes, uncomplicated; Z91.14 Patient's other noncompliance with medication regimen; Z79.899 Other long term (current) drug therapy; E78.00 Pure hypercholesterolemia, unspecified; I25.2 Old myocardial infarction